=== PATIENT | female | born 1940 | race Caucasian/White ===

== ENCOUNTER 2017-05-12 15:35 | Inpatient (IN) | payer MEDICARE ==
[2017-05-12] MEDS ORDERED: methylPREDNISolone 125 MG* 2 ML VIAL IV ONE (15:57)
[2017-05-12 16:23] LABS: FIO2 2
[2017-05-12 16:26] LABS: PCO2 Arterial 45 mmHg (35-45)
[2017-05-12 17:02] LABS: Hematocrit 37 % (35-47); Hemoglobin 11.9 g/dl (12.0-16.0); Mean Corpuscular HGB Conc 32 g/dl (31-36); Mean Corpuscular Hemoglobin 27 pg (27-31); Mean Corpuscular Volume 86 fL (80-97); Mean Platelet Volume 8 um3 (7.4-10.4); Red Blood Count 4.34 10^6/ul (4.0-5.4); Red Cell Distribution Width 15 % (10.5-15); White Blood Count 11.1 10^3/ul (3.5-10.8)
[2017-05-12 17:21] LABS: Troponin I 0.01 ng/mL (<0.04)
[2017-05-12 17:22] LABS: Albumin 3.7 g/dL (3.2-5.2); BUN/Creatinine Ratio 14.6 (8-20); C Reactive Protein 8.25 mg/L (< 5.00); EGFR African American 72.1 (>60); EGFR Non-African American 56.1 (>60); Globulin 3.1 g/dL (2-4); Potassium 3.8 mmol/L (3.5-5.0); Total Bilirubin 0.6 mg/dL (0.2-1.0); Total Protein 6.8 g/dL (6.4-8.9)
--- NOTE | 2017-05-12 17:22 | RAD ---
HISTORY: Shortness of breath COMPARISONS: September 09, 2015 VIEWS: 2: Frontal and lateral views of the chest. FINDINGS: CARDIOMEDIASTINAL SILHOUETTE: The cardiomediastinal silhouette is normal. POLINA: The polina are normal. PLEURA: The costophrenic angles are sharp. No pleural abnormalities are noted. LUNG PARENCHYMA: There is hyperinflation. There is a linear density within the left midlung measuring 4.4 cm in maximum dimension. ABDOMEN: The upper abdomen is clear. There is no subphrenic gas. BONES AND SOFT TISSUES: No bone or soft tissue abnormalities are noted. OTHER: None. IMPRESSION: HYPERINFLATION WITH A ROUNDED LINEAR DENSITY OF THE LEFT UPPER LUNG. RECOMMEND CONSIDERATION OF CORRELATION WITH CONTRAST ENHANCED CT OF THE CHEST
[2017-05-12] MEDS ORDERED: Albuterol 2.5 MG/3 ML NEB.SOL* (0.083%) INH PRN (17:59)
[2017-05-12] MEDS ORDERED: Iohexol 300* (CONTRAST) 10 ML SDV IV ONE (18:09)
[2017-05-12] MEDS ORDERED: Iodixanol 320 (CONTRAST) 100 ML SDV IV ONE (18:12)
[2017-05-12 18:13] LABS: Urine Bacteria 1+ (Absent); Urine Bilirubin Negative (Negative); Urine Glucose Negative (Negative); Urine Nitrite Negative (Negative)
[2017-05-12] MEDS: Albuterol/Ipratropium NEB.SOL* Albuterol 2.5 MG/Ipratropium 0.5 MG 3 ML INH SCH ×2 (18:13→18:26)
[2017-05-12] MEDS ORDERED: cefTRIAXone(*) 1 GM ADVAN ONE (18:30)
[2017-05-12] MEDS: cefTRIAXone VIAL(*) 1,000 MG in NS 0.9% 50 ML* 50 ML IVPB SCH (18:51)
--- NOTE | 2017-05-12 18:59 | RAD ---
HISTORY: Pneumonia COMPARISONS: Chest x-ray dated May 12, 2017, CT dated May 18, 2013 TECHNIQUE: Multiple contiguous axial CT scans of the chest were obtained with intravenous contrast. Coronal and sagittal multiplanar reformations are also submitted for review. FINDINGS: NECK AND THYROID: There is a calcified right thyroid nodule. This appears stable when compared to the 2013 examination and differences in technique. CHEST WALL: There is no lower cervical, axillary, or supraclavicular lymphadenopathy by size criteria. HEART AND PERICARDIUM: The heart is unremarkable. AORTA AND PULMONARY VASCULATURE: There is calcification of the thoracic aorta. The pulmonary vasculature is unremarkable. MEDIASTINUM: There is no mediastinal lymphadenopathy by size criteria. POLINA: There is no hilar lymphadenopathy by size criteria. AIRWAY AND ESOPHAGUS: The airway is unremarkable, without endobronchial filling defect. The esophagus is grossly normal. LUNG PARENCHYMA: The density noted on plain film corresponds to linear atelectasis of the left upper lobe. There is also linear atelectasis of the right middle lobe. PLEURA: No pleural abnormalities are noted. UPPER ABDOMEN: The upper abdomen is unremarkable. BONES AND SOFT TISSUES: Degenerative changes are noted of the spine OTHER: None. IMPRESSION: LINEAR ATELECTASIS OF THE LEFT UPPER LOBE AND RIGHT MIDDLE LOBE
--- NOTE | 2017-05-12 19:01 | ED ---
Misti Adler Thomas, scribed for Alcon Hood MD on 05/12/17 at 1553 . Shortness of Breath - HPI Summary HPI Summary: The pt is a 77 y/o F with a Hx of COPD presenting to the ED c/o acute-on- chronic SOB that worsened significantly this afternoon. The SOB is aggravated and alleviated by nothing. She is on 2L of oxygen at home. She has been taking Mucinex and Delsym over the last week. Pt additionally c/o hoarseness and clear sputum production. Pt denies CP, fever. PMHx: COPD, asthma, PNA. PSHx: cholecystectomy, laminectomy. SHx: no smoking, no alcohol use, no illicit drug use. FHx: nothing both parents in 90s. She is accompanied by her family. - History of Current Complaint Chief Complaint: EDShortnessOfBreath Time Seen by Provider: 05/12/17 15:48 Hx Obtained From: Patient, Family/[facility] Nurse - family present Onset/Duration: Lasting Days - acute on chronic with onset today, Still Present Timing: Constant Dyspnea At: Rest Aggrevating Factors: Nothing Alleviating Factors: Nothing Associated Signs & Symptoms: Cough (Productive) - clear sputum - Allergy/Home Medications Allergies/Adverse Reactions: Allergies Allergy/AdvReac Type Severity Reaction Status Date / Time Montelukast [From Singulair] AdvReac Severe See Comment Verified 07/21/14 19:21 Home Medications: Home Medications Cholecalciferol [Vitamin D3] 2,000 unit PO DAILY 05/12/17 [History Confirmed ] Hydrochlorothiazide TAB* [Hydrodiuril TAB*] 12.5 mg PO DAILY 05/12/17 [History Confirmed 05/12/17] Lisinopril TAB* [Prinivil TAB*] 10 mg PO DAILY 05/12/17 [History Confirmed 05/12] Omeprazole CAP* [Prilosec CAP* 20 MG] 20 mg PO DAILY 05/12/17 [History Confirmed 05/12/17] Potassium Chlor TAB* [Klor Con ER TAB*] 20 meq PO DAILY 05/12/17 [History Confirmed 05/12/17] Prednisone [Deltasone] 10 mg PO DAILY 05/12/17 [History Confirmed 05/12/17] amLODIPine TAB* [Norvasc 5 mg TAB*] 2.5 mg PO DAILY 05/12/17 [History Confirmed 05/12/17] PMH/Surg Hx/FS Hx/Imm Hx Previously Healthy: No Endocrine/Hematology History: 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 Denies: Hx Anticoagulant Therapy, Hx Diabetes, Hx Thyroid Disease Cardiovascular History: Reports: Hx Congestive Heart Failure Denies: Hx Hypertension, Hx Pacemaker/ICD Respiratory History: Reports: Hx Asthma - USES HOME NEBULIZER AND INHAILER WHEN TRAVELING, Hx Chronic Bronchitis, Hx Chronic Obstructive Pulmonary Disease (COPD ), Hx Pneumonia History: Denies: Hx Renal Disease Musculoskeletal History: Reports: Hx Back Problems Denies: Hx Rheumatoid Arthritis, Hx Osteoporosis Sensory History: Reports: Hx Cataracts, Hx Contacts or Glasses Opthamlomology History: Reports: Hx Cataracts, Hx Contacts or Glasses Neurological History: Reports: Hx Headaches, Other Neuro Impairments/Disorders - 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 Laminectomy 2005. Cataract removal. Cholecysectomy, tonsillectomy. several basal cell skin growths removed Hx Anesthesia Reactions: No - Immunization History Date of Tetanus Vaccine: Unk Date of Influenza Vaccine: Fall 2011 Infectious Disease History: No Infectious Disease History: Denies: Hx Hepatitis, Hx Human Immunodeficiency Virus (HIV), Traveled Outside the [place] in Last 30 Days - Family History Known Family History: Positive: Other - None -- both parents in - Social History Alcohol Use: None Substance Use Type: Reports: None Hx Tobacco Use: No Smoking Status (MU): Never Smoked Tobacco Review of Systems Negative: Fever Positive: Other - POS: hoarseness Negative: Chest Pain Positive: Shortness Of Breath - acute on chronic, Other - POS: sputum production All Other Systems Reviewed And Are Negative: Yes Physical Exam - Summary Physical Exam Summary: VITAL SIGNS: Reviewed. GENERAL: ~Patient is a well-developed and elderly female who is lying comfortable in the stretcher. ~Patient is in some acute respiratory distress. HEAD AND FACE: No signs of trauma. ~No ecchymosis, hematomas or skull depressions. No sinus tenderness. EYES: PERRLA, EOMI x 2, No injected conjunctiva, no nystagmus. EARS: Hearing grossly intact. Ear canals and tympanic membranes are within normal limits. MOUTH: Oropharynx within normal limits. NECK: Supple, trachea is midline, no adenopathy, no JVD, no carotid bruit, no c- spine tenderness, neck with full ROM. CHEST: Symmetric, no tenderness at palpation LUNGS: There are bilateral wheezing and crackles. She is able to speak full sentences. CVS: Regular rate and rhythm, S1 and S2 present, no murmurs or gallops appreciated. ABDOMEN: Soft, non-tender. No signs of distention. No rebound no guarding, and no masses palpated. Bowel sounds are normal. EXTREMITIES: FROM in all major joints, no edema, no cyanosis or clubbing. NEURO: Alert and oriented x 3. No acute neurological deficits. Speech is normal and follows commands. SKIN: Dry and warm Triage Information Reviewed: Yes Vital Signs On Initial Exam: Initial Vitals Temp Pulse Resp BP Pulse Ox 97.9 F 101 23 142/79 95 05/12/17 15:37 05/12/17 15:37 05/12/17 15:37 05/12/17 15:37 05/12/17 15:37 Vital Signs Reviewed: Yes Diagnostics - Vital Signs Vital Signs Temp Pulse Resp BP Pulse Ox 05/12/17 15:37 97.9 F 101 23 142/79 95 - Laboratory Lab Results: Lab Results 05/12/17 05/12/17 05/12/17 Range/Units 16:20 16:40 16:40 WBC 11.1 H (3.5-10.8) 10^3/ul RBC 4.34 (4.0-5.4) 10^6/ul Hgb 11.9 L (12.0-16.0) g/dl Hct 37 (35-47) % MCV 86 (80-97) fL MCH 27 (27-31) pg MCHC 32 (31-36) g/dl RDW 15 (10.5-15) % Plt Count 280 (150-450) 10^3/ul MPV 8 (7.4-10.4) um3 Neut % (Auto) 63.1 (38-83) % Lymph % (Auto) 16.8 L (25-47) % [place] % (Auto) 10.9 H (1-9) % Eos % (Auto) 8.2 H (0-6) % Baso % (Auto) 1.0 (0-2) % Absolute Neuts (auto) 7.0 (1.5-7.7) 10^3/ul Absolute Lymphs (auto) 1.9 (1.0-4.8) 10^3/ul Absolute Monos (auto) 1.2 H (0-0.8) 10^3/ul Absolute Eos (auto) 0.9 H (0-0.6) 10^3/ul Absolute Basos (auto) 0.1 (0-0.2) 10^3/ul Absolute Nucleated RBC 0 10^3/ul Nucleated RBC % 0 Patient Temperature Not Reportable ABG pH 7.43 (7.35-7.45) ABG pH (Temp Correct) Not Reportable ABG pCO2 45 (35-45) mmHg ABG pCO2 (Temp Corrct Not Reportable ABG pO2 68 L (80-100) mmHg ABG pO2 (Temp Correct Not Reportable ABG HCO3 28.6 (19-31) mmol/L ABG O2 Saturation 96.3 (95-98) % ABG Base Excess 4.8 H (-2.0-2.0) Respiration Rate Not Reportable O2 Delivery Device nasal cannula Ventilator Type Not Reportable Vent Mode Not Reportable FiO2 2 Inspiratory Time Not Reportable PEEP Not Reportable Pressure Support Not Reportable Pressure Control Not Reportable EPAP Not Reportable IPAP Not Reportable BiPAP Not Reportable Sodium 134 (133-145) mmol/L Potassium 3.8 (3.5-5.0) mmol/L Chloride 97 L (101-111) mmol/L Carbon Dioxide 31 (22-32) mmol/L Anion Gap 6 (2-11) mmol/L BUN 14 (6-24) mg/dL Creatinine 0.96 H (0.51-0.95) mg/dL Est GFR ( Amer) 72.1 (>60) Est GFR (Non-Af Amer) 56.1 (>60) BUN/Creatinine Ratio 14.6 (8-20) Glucose 123 H (70-100) mg/dL Lactic Acid (0.5-2.0) mmol/L Calcium 9.0 (8.6-10.3) mg/dL Total Bilirubin 0.60 (0.2-1.0) mg/dL AST 13 (13-39) U/L ALT 9 (7-52) U/L Alkaline Phosphatase 46 (34-104) U/L Troponin I 0.01 (<0.04) ng/mL C-Reactive Protein 8.25 H (< 5.00) mg/L B-Natriuretic Peptide ( - 100) pg/mL Total Protein 6.8 (6.4-8.9) g/dL Albumin 3.7 (3.2-5.2) g/dL Globulin 3.1 (2-4) g/dL Albumin/Globulin Ratio 1.2 (1-3) Urine Color Urine Appearance Urine pH (5-9) Ur Specific [place] (1.010-1.030) Urine Protein (Negative) Urine Ketones (Negative) Urine Blood (Negative) Urine Nitrate (Negative) Urine Bilirubin (Negative) Urine Urobilinogen (Negative) Ur Leukocyte Esterase (Negative) Urine WBC (Auto) (Absent) Urine RBC (Auto) (Absent) Ur Squamous Epith Cells (Absent) Ur Transition Epith Cell (Absent) Urine Bacteria (Absent) Urine Glucose (Negative) 05/12/17 05/12/17 05/12/17 Range/Units 16:40 16:40 17:32 WBC (3.5-10.8) 10^3/ul RBC (4.0-5.4) 10^6/ul Hgb (12.0-16.0) g/dl Hct (35-47) % MCV (80-97) fL MCH (27-31) pg MCHC (31-36) g/dl RDW (10.5-15) % Plt Count (150-450) 10^3/ul MPV (7.4-10.4) um3 Neut % (Auto) (38-83) % Lymph % (Auto) (25-47) % [place] % (Auto) (1-9) % Eos % (Auto) (0-6) % Baso % (Auto) (0-2) % Absolute Neuts (auto) (1.5-7.7) 10^3/ul Absolute Lymphs (auto) (1.0-4.8) 10^3/ul Absolute Monos (auto) (0-0.8) 10^3/ul Absolute Eos (auto) (0-0.6) 10^3/ul Absolute Basos (auto) (0-0.2) 10^3/ul Absolute Nucleated RBC 10^3/ul Nucleated RBC % Patient Temperature ABG pH (7.35-7.45) ABG pH (Temp Correct) ABG pCO2 (35-45) mmHg ABG pCO2 (Temp Corrct ABG pO2 (80-100) mmHg ABG pO2 (Temp Correct ABG HCO3 (19-31) mmol/L ABG O2 Saturation (95-98) % ABG Base Excess (-2.0-2.0) Respiration Rate O2 Delivery Device Ventilator Type Vent Mode FiO2 Inspiratory Time PEEP Pressure Support Pressure Control EPAP IPAP BiPAP Sodium (133-145) mmol/L Potassium (3.5-5.0) mmol/L Chloride (101-111) mmol/L Carbon Dioxide (22-32) mmol/L Anion Gap (2-11) mmol/L BUN (6-24) mg/dL Creatinine (0.51-0.95) mg/dL Est GFR ( Amer) (>60) Est GFR (Non-Af Amer) (>60) BUN/Creatinine Ratio (8-20) Glucose (70-100) mg/dL Lactic Acid 1.1 (0.5-2.0) mmol/L Calcium (8.6-10.3) mg/dL Total Bilirubin (0.2-1.0) mg/dL AST (13-39) U/L ALT (7-52) U/L Alkaline Phosphatase (34-104) U/L Troponin I (<0.04) ng/mL C-Reactive Protein (< 5.00) mg/L B-Natriuretic Peptide 34 ( - 100) pg/mL Total Protein (6.4-8.9) g/dL Albumin (3.2-5.2) g/dL Globulin (2-4) g/dL Albumin/Globulin Ratio (1-3) Urine Color Yellow Urine Appearance Cloudy Urine pH 5.0 (5-9) Ur Specific [place] 1.010 (1.010-1.030) Urine Protein Negative (Negative) Urine Ketones Negative (Negative) Urine Blood Negative (Negative) Urine Nitrate Negative (Negative) Urine Bilirubin Negative (Negative) Urine Urobilinogen Negative (Negative) Ur Leukocyte Esterase 3+ H (Negative) Urine WBC (Auto) 3+(>20/hpf) H (Absent) Urine RBC (Auto) 2+(6-10/hpf) H (Absent) Ur Squamous Epith Cells Present H (Absent) Ur Transition Epith Cell Present H (Absent) Urine Bacteria 1+ H (Absent) Urine Glucose Negative (Negative) Result Diagrams: 05/12/17 16:40 05/12/17 16:40 Lab Statement: Any lab studies that have been ordered have been reviewed, and results considered in the medical decision making process. - Radiology CXR Xray Interpretation: Positive (See Comments) - HYPERINFLATION WITH A ROUNDED LINEAR DENSITY OF THE LEFT UPPER LUNG. RECOMMEND CONSIDERATION OF CORRELATION WITH CONTRAST ENHANCED CT OF THE CHEST. ED physician has reviewed this report and agrees. Radiology Interpretation Completed By: Radiologist - EKG 17:34 Cardiac Rate: NL - 95 BPM EKG Interpretation: Sinus rhythm. Atrial premature contractions. No ST elevations. Course/Dx - Course Assessment/Plan: The pt is a 77 y/o F with a Hx of COPD presenting to the ED c/ o [id number] SOB that worsened significantly this afternoon. The SOB is aggravated and alleviated by nothing. She is on 2L of oxygen at home. She has been taking Mucinex and Delsym over the last week. Pt additionally c/o hoarseness and clear sputum production. Pt denies CP, fever. PMHx: COPD, asthma , PNA. PSHx: cholecystectomy, laminectomy. SHx: no smoking, no alcohol use, no illicit drug use. FHx: nothing both parents in 90s. She is accompanied by her family. Blood work is without significant abnormalities except WBC of 11.1 without bands. CMP shows glucose 128 and CRP 8.25. CXR shows HYPERINFLATION WITH A ROUNDED LINEAR DENSITY OF THE LEFT UPPER LUNG. RECOMMEND. CONSIDERATION OF CORRELATION WITH CONTRAST ENHANCED CT OF THE CHEST. In the physical exam, the patient had wheezes and crackles, therefore, she was initially given Duo-Neb and SoluMedrol. At this point, I discussed the case with Dr. Soler, who accepts the patient for admission. She ordered Rocephin and Ciprofloxacin for coverage of the COPD exacerbation. The patient is stable at this point. She will order a CT as recommended by radiology. She will follow up on relevant test results. The patient is hemodynamically stable and alert and oriented x3. - Diagnoses Differential Diagnosis/HQI/PQRI: Positive: Bronchitis, CHF, COPD Exacerbation, Pneumonia Provider Diagnoses: COPD (chronic obstructive pulmonary disease) - Physician Notifications Discussed Care of Patient With: Courtney Soler Time Discussed With Above Provider: 15:57 Instructed by Provider To: Other - I consulted with Dr. Soler, hospitalist, who will admit the patient. Discharge - Discharge Plan Condition: Fair Disposition: ADMITTED TO [facility] documentation as recorded by the Misti robins Thomas accurately reflects the service I personally performed and the decisions made by , Alcon Hood MD.
[2017-05-12] MEDS: Azithromycin IV(*) 500 MG in NS 0.9% 250 ML* 250 ML IVPB SCH (20:20)
--- NOTE | 2017-05-12 21:12 | HP ---
CC: Dr. Rhodes* HISTORY AND PHYSICAL: DATE OF ADMISSION: 05/12/17 PRIMARY CARE PROVIDER: Dr. Rhodes. ATTENDING PHYSICIAN WHILE IN THE HOSPITAL: Dr. Luisa Galicia * (report dictated by Juan Wood NP) CHIEF COMPLAINT: 1. Shortness of breath. 2. Cough. HISTORY OF PRESENT ILLNESS: Ms. Shah is a 77-year-old female patient, she has a history of COPD and asthma, history of Churg-Dave syndrome, and a history of neuropathy. She comes in today stating that last week she was having runny nose, sore throat, cough, not feeling well, feeling little more short of breath. She was started on Levaquin. Normally, after taking a course of Levaquin, she feels better. She finished the course last week, then since the last 2 to 3 days over the weekend, she has had progressive worsening shortness of breath again, even shortness of breath at rest. She has been coughing up clear sputum. She denied having any fevers, denied any chest pain, says that she is having sore throat, rhinorrhea, just feeling really tired, and was concerned she was using her nebulizers and using her oxygen 24x7, which normally does not do and despite this though, she still had continued shortness of breath and so she came in and was evaluated and x-ray did show pneumonia on the left side and we were asked to evaluate for admission. There have been no reports of vomiting or diarrhea. PAST MEDICAL HISTORY: Significant for: 1. COPD. 2. Churg-Dave syndrome. 3. Neuropathy. 4. Hypertension. 5. Osteoporosis. PAST SURGICAL HISTORY: She has had: 1. Cholecystectomy. 2. Tubal ligation. 3. Tonsillectomy. 4. Cardiac catheterization recently done 2 to 3 months ago down at [place]; I will try to get those records. MEDICATIONS: Home meds according to the list that she gave us include: 1. Vitamin D3 2000 units p.o. daily. 2. Prednisone 10 mg daily. 3. Potassium 20 mEq daily. 4. Prilosec 20 mg daily. 5. Lisinopril 10 mg daily. 6. Norvasc 2.5 mg daily. 7. Hydrochlorothiazide 12.5 mg daily. 8. Neurontin 300 mg p.o. t.i.d. 9. Fosamax 100 mg p.o. weekly. ALLERGIES TO MEDICATIONS: Include SINGULAIR. FAMILY HISTORY: Mother had a history of heart disease. Father had a history of CVA and stroke. SOCIAL HISTORY: She does not smoke. She does not drink. Surrogate decision maker is her son, Donny. REVIEW OF SYSTEMS: There is no documented fever. She denied having any significant weight change. There was no double vision. No ear discharge. There was rhinorrhea. There is no sore throat. No thyroid enlargement. Denied having any chest pain. There is dyspnea and dyspnea on exertion. No orthopnea. No nocturnal dyspnea. There was no abdominal pain. No nausea or vomiting. No dysuria or any frequency. Review of 14 systems completed, all others negative. PHYSICAL EXAMINATION GENERAL: At this time, Ms. Pablo Sierra is 77-year-old female patient. She does appear to be in moderate amount of respiratory distress. She is sitting in the ER stretcher. VITAL SIGNS: Reveal blood pressure , pulse 100, respirations 29, O2 sat 95 %, temperature 97.9. HEENT: Head is atraumatic and normocephalic. Eyes: EOMs are intact. Sclerae are anicteric, not pale. NECK: Supple. THROAT: Oral mucosa appears to be dry. No oropharyngeal erythema. LUNGS: Rhonchorous throughout. She had equal diaphragmatic expansion. HEART: Sounds S1, S2. Regular rate and rhythm. No murmurs, rubs, or gallops. ABDOMEN: Soft, flat, and nontender. Bowel sounds present. EXTREMITIES: Pulses 2+ throughout. She had no peripheral edema. She is moving all 4 extremities with 5/5 strength. NEUROLOGICAL: The patient is awake, alert, and oriented x3. Tongue midline. Angle Shearer were equal. She had no gross focal deficits. SKIN: Intact. DIAGNOSTIC STUDIES/LAB DATA: Revealed a WBC of 11.1, RBC 4.34, hemoglobin 11.9 , hematocrit 37, platelet count 280. Blood gas revealed a pH of 7.43, PCO2 of 45, PO2 of 68. She did have a sodium today of 134, potassium 3.8, chloride 97, bicarb 31, BUN 14, creatinine 0.96, glucose 123, lactate 1.1, calcium 9. Total bili 0.6, AST 13, ALT 9, alk phos 46. Troponin 0.01. CRP is 8.25. BNP of 34. Albumin of 3.7. She did have chest x-ray obtained today, which revealed hyperinflation with a rounded linear density in the left upper lung, recommend consideration of correlation with contrast-enhanced CT of the chest. EKG is pending. Old medical records were reviewed. ASSESSMENT AND PLAN: Ms. Pablo Sierra is a 77-year-old female patient, coming in to the ER today with progressive worsening shortness of breath, on x-ray found to have what appeared to be infiltrate. She will be admitted under inpatient status for: 1. Chronic obstructive pulmonary disease exacerbation secondary to possible ___ __ pneumonia. At this point, I will get a CT of the chest to further define this infiltrate. I am going to put her on steroids, Solu-Medrol b.i.d. 60 mg. Get her on Dulera, DuoNeb, flutter valve. We will try to get urine antigen. In addition to this, we will get a sputum culture, put her on antibiotics. Blood cultures have been sent and we will try to get a sputum culture if possible. 2. Hypertension. In the setting of this acute illness, I am actually going to hold her meds. We can always restart them later and we will continue to follow this. 3. History of Churg-Dave syndrome. Consult with primary. 4. Neuropathy. Continue with gabapentin. 5. DVT prophylaxis. She is high risk, I am going to go ahead and put her on heparin subcu. 6. Code status. She wishes to be a DNR. 7. Fluids, electrolytes, and nutrition. She can have a regular diet. TIME SPENT: On the admission was 60 minutes; greater than half the time was spent [id number] with the patient obtaining my history and physical, other half the time was spent going over the plan of care with the patient and implementing the plan of care. I did discuss plan of care with my attending, Dr. Galicia; she is in agreement. JUAN WOOD, GEORGINA [id number]/[facility] #: [id number] MAX
[2017-05-12] MEDS: Gabapentin CAP(*) 300 MG PO SCH (22:20)
[2017-05-12] MEDS: Heparin VIAL(*) 5000 UNITS/ML VIAL (FIVE THOUSAND) SUBCUT SCH (22:20)
[2017-05-13] MEDS: Mometasone/Formoter 200/5 MDI INH SCH ×3 (00:22→20:03)
[2017-05-13] MEDS: Albuterol/Ipratropium NEB.SOL* Albuterol 2.5 MG/Ipratropium 0.5 MG 3 ML INH SCH ×8 (00:22→23:52)
[2017-05-13 04:56] LABS: Hematocrit 37 % (35-47); Hemoglobin 12.1 g/dl (12.0-16.0); Mean Corpuscular HGB Conc 33 g/dl (31-36); Mean Corpuscular Hemoglobin 28 pg (27-31); Mean Corpuscular Volume 85 fL (80-97); Mean Platelet Volume 8 um3 (7.4-10.4); Red Blood Count 4.28 10^6/ul (4.0-5.4); Red Cell Distribution Width 15 % (10.5-15); White Blood Count 6.2 10^3/ul (3.5-10.8)
[2017-05-13] MEDS: methylPREDNISolone 125 MG* 2 ML VIAL IV SCH ×2 (05:53→17:59)
[2017-05-13] MEDS: Heparin VIAL(*) 5000 UNITS/ML VIAL (FIVE THOUSAND) SUBCUT SCH ×3 (05:54→21:57)
[2017-05-13 06:01] LABS: BUN/Creatinine Ratio 16.7 (8-20); Blood Urea Nitrogen 14 mg/dL (6-24); CO2 Carbon Dioxide 28 mmol/L (22-32); Calcium 8.7 mg/dL (8.6-10.3); Chloride 99 mmol/L (101-111); EGFR African American 84.1 (>60); EGFR Non-African American 65.4 (>60); Glucose 154 mg/dL (70-100); Sodium 136 mmol/L (133-145)
[2017-05-13 06:16] LABS: Anion Gap 9 mmol/L (2-11)
[2017-05-13] MEDS: Omeprazole CAP* 20 MG PO SCH (09:19)
[2017-05-13] MEDS: Gabapentin CAP(*) 300 MG PO SCH ×3 (09:19→21:57)
[2017-05-13] MEDS: cefTRIAXone VIAL(*) 1,000 MG in NS 0.9% 50 ML* 50 ML IVPB SCH (19:20)
[2017-05-13] MEDS: Azithromycin IV(*) 500 MG in NS 0.9% 250 ML* 250 ML IVPB SCH (19:55)
--- NOTE | 2017-05-13 21:41 | PN ---
Subjective Date of Service: 05/13/17 Interval History: SOB is improved, feeling better. on vapotherm. Hx of edna gómez, had followed with Dr. Dickey, then Dr. Manning but has not seen in many years. Initial symptoms of sore throat, clear sputum, SOB at rest, fatigue. Got levaquin from Dr. Schaffer ([place]). CT chest with linear atalectasis. Objective Active Medications: Albuterol (Ventolin 2.5 Mg/3 Ml Neb.Queta*) 2.5 mg INH Q2H PRN PRN Reason: SOB/WHEEZING Albuterol/Ipratropium (Duoneb (Albuterol 2.5 Mg/Ipratropium 0.5 Mg)) 1 neb INH [id number] AWAKE [facility] Last Admin: 05/13/17 20:03 Dose: 1 neb Gabapentin (Neurontin Cap(*)) 300 mg PO TID [facility] Last Admin: 05/13/17 14:11 Dose: 300 mg Heparin Sodium (Porcine) (Heparin Vial(*)) 5,000 units SUBCUT Q8HR [facility] Last Admin: 05/13/17 14:11 Dose: 5,000 units Sodium Chloride (Ns 0.9% 1000 Ml*) 1,000 mls @ 100 mls/hr IV PER RATE [facility] Ceftriaxone Sodium 1,000 mg/ (Sodium Chloride) 50 mls @ 200 mls/hr IVPB Q24H [facility] Last Admin: 05/13/17 19:20 Dose: 200 mls/hr Azithromycin 500 mg/ Sodium (Chloride) 250 mls @ 250 mls/hr IVPB Q24H [facility] Last Admin: 05/12/17 20:20 Dose: 250 mls/hr Methylprednisolone Sodium Succinate (Solu-Medrol 125mg *) 60 mg IV Q12H [facility] Last Admin: 05/13/17 17:59 Dose: 60 mg Mometasone Furoate/Formoterol Fumar (Dulera 200/5 Mdi*) 2 puff INH BID [facility] Last Admin: 05/13/17 20:03 Dose: 2 puff Omeprazole (Prilosec Cap*) 20 mg PO DAILY@0730 [facility] Last Admin: 05/13/17 09:19 Dose: 20 mg Vital Signs 05/12/17 05/12/17 05/12/17 21:45 22:00 22:15 Temperature Pulse Rate 87 83 85 Respiratory 14 22 24 Rate Blood Pressure 152/77 156/78 153/78 (mmHg) O2 Sat by Pulse 100 100 99 Oximetry 05/12/17 05/12/17 05/12/17 22:30 22:45 23:00 Temperature Pulse Rate 86 84 89 Respiratory 24 24 24 Rate Blood Pressure 161/81 148/78 158/83 (mmHg) O2 Sat by Pulse 100 100 100 Oximetry 05/12/17 05/12/17 05/12/17 23:15 23:21 23:30 Temperature Pulse Rate 90 76 Respiratory 24 24 21 Rate Blood Pressure 147/75 (mmHg) O2 Sat by Pulse 100 100 Oximetry 05/12/17 05/13/17 05/13/17 23:31 00:00 00:23 Temperature 98.8 F Pulse Rate 80 77 Respiratory 25 17 20 Rate Blood Pressure 152/74 146/65 (mmHg) O2 Sat by Pulse 99 99 Oximetry 05/13/17 05/13/17 05/13/17 00:30 00:31 01:00 Temperature Pulse Rate 74 74 72 Respiratory 20 16 17 Rate Blood Pressure 131/60 (mmHg) O2 Sat by Pulse 97 100 95 Oximetry 05/13/17 05/13/17 05/13/17 01:30 02:00 02:01 Temperature Pulse Rate 82 73 74 Respiratory 17 18 14 Rate Blood Pressure 150/77 154/82 (mmHg) O2 Sat by Pulse 97 98 100 Oximetry 05/13/17 05/13/17 05/13/17 02:12 02:30 02:31 Temperature Pulse Rate 75 74 75 Respiratory 21 19 15 Rate Blood Pressure 151/63 (mmHg) O2 Sat by Pulse 99 98 100 Oximetry 05/13/17 05/13/17 05/13/17 03:00 03:01 03:20 Temperature Pulse Rate 70 73 Respiratory 17 20 16 Rate Blood Pressure 149/64 (mmHg) O2 Sat by Pulse 99 98 Oximetry 05/13/17 05/13/17 05/13/17 03:30 03:31 03:55 Temperature Pulse Rate 70 78 69 Respiratory 18 25 16 Rate Blood Pressure 145/68 145/68 (mmHg) O2 Sat by Pulse 98 100 100 Oximetry 05/13/17 05/13/17 05/13/17 04:00 04:01 04:30 Temperature Pulse Rate 69 72 76 Respiratory 26 15 20 Rate Blood Pressure 143/79 (mmHg) O2 Sat by Pulse 99 100 97 Oximetry 05/13/17 05/13/17 05/13/17 05:00 05:30 06:00 Temperature 97.1 F Pulse Rate 78 77 81 Respiratory 20 22 20 Rate Blood Pressure 142/78 (mmHg) O2 Sat by Pulse 97 100 Oximetry 05/13/17 05/13/17 05/13/17 06:01 06:19 06:30 Temperature Pulse Rate 104 86 80 Respiratory 29 26 21 Rate Blood Pressure 153/53 (mmHg) O2 Sat by Pulse 97 99 100 Oximetry 05/13/17 05/13/17 05/13/17 07:00 07:06 07:30 Temperature Pulse Rate 79 79 79 Respiratory 19 32 42 Rate Blood Pressure 166/72 (mmHg) O2 Sat by Pulse 98 100 97 Oximetry 05/13/17 05/13/17 05/13/17 07:40 08:00 08:01 Temperature 97.9 F Pulse Rate 90 88 Respiratory 25 30 Rate Blood Pressure 180/112 (mmHg) O2 Sat by Pulse 98 98 Oximetry 05/13/17 05/13/17 05/13/17 08:30 08:44 08:54 Temperature Pulse Rate 94 69 69 Respiratory 28 19 19 Rate Blood Pressure (mmHg) O2 Sat by Pulse 90 98 98 Oximetry 05/13/17 05/13/17 05/13/17 08:55 08:59 09:00 Temperature Pulse Rate 68 69 Respiratory 23 23 Rate Blood Pressure (mmHg) O2 Sat by Pulse 99 98 98 Oximetry 05/13/17 05/13/17 05/13/17 09:01 09:12 09:30 Temperature Pulse Rate 73 71 81 Respiratory 23 21 24 Rate Blood Pressure 154/73 (mmHg) O2 Sat by Pulse 99 96 96 Oximetry 05/13/17 05/13/17 05/13/17 10:00 10:07 10:30 Temperature Pulse Rate 79 77 Respiratory 21 26 23 Rate Blood Pressure 132/87 (mmHg) O2 Sat by Pulse 98 97 Oximetry 05/13/17 05/13/17 05/13/17 11:00 11:02 11:30 Temperature Pulse Rate 80 84 Respiratory 15 14 37 Rate Blood Pressure 125/57 (mmHg) O2 Sat by Pulse 97 96 Oximetry 05/13/17 05/13/17 05/13/17 11:51 12:00 12:30 Temperature 98.6 F Pulse Rate 80 77 Respiratory 29 14 Rate Blood Pressure 134/82 (mmHg) O2 Sat by Pulse 100 95 Oximetry 05/13/17 05/13/17 05/13/17 12:54 12:55 13:00 Temperature Pulse Rate 81 81 82 Respiratory 14 19 23 Rate Blood Pressure 128/62 (mmHg) O2 Sat by Pulse 97 97 100 Oximetry 05/13/17 05/13/17 05/13/17 13:26 13:30 14:00 Temperature Pulse Rate 79 85 80 Respiratory 20 24 24 Rate Blood Pressure 124/73 (mmHg) O2 Sat by Pulse 100 95 100 Oximetry 05/13/17 05/13/17 05/13/17 14:30 14:57 14:59 Temperature Pulse Rate 82 85 81 Respiratory 18 16 23 Rate Blood Pressure (mmHg) O2 Sat by Pulse 100 100 98 Oximetry 05/13/17 05/13/17 05/13/17 15:00 15:30 16:00 Temperature Pulse Rate 87 82 83 Respiratory 22 23 23 Rate Blood Pressure (mmHg) O2 Sat by Pulse 100 97 100 Oximetry 05/13/17 05/13/17 05/13/17 16:01 16:30 16:53 Temperature Pulse Rate 81 81 84 Respiratory 26 26 23 Rate Blood Pressure 121/52 (mmHg) O2 Sat by Pulse 96 98 99 Oximetry 05/13/17 05/13/17 05/13/17 17:00 17:27 17:30 Temperature Pulse Rate 86 103 87 Respiratory 17 20 23 Rate Blood Pressure 125/74 (mmHg) O2 Sat by Pulse 100 96 98 Oximetry 05/13/17 05/13/17 05/13/17 18:00 18:01 18:30 Temperature Pulse Rate 86 84 83 Respiratory 24 23 18 Rate Blood Pressure 125/57 (mmHg) O2 Sat by Pulse 96 95 100 Oximetry 05/13/17 05/13/17 05/13/17 19:00 19:01 19:30 Temperature Pulse Rate 99 86 80 Respiratory 20 24 15 Rate Blood Pressure 144/63 (mmHg) O2 Sat by Pulse 98 98 98 Oximetry 05/13/17 05/13/17 05/13/17 19:34 20:03 20:06 Temperature Pulse Rate 79 74 Respiratory 29 17 Rate Blood Pressure (mmHg) O2 Sat by Pulse 98 100 98 Oximetry Oxygen Devices in Use Now: Nasal Cannula Appearance: no acute distress Eyes: No Scleral Icterus, PERRLA Ears/Nose/Mouth/Throat: NL Teeth, Lips, Gums, Clear Oropharnyx Neck: NL Appearance and Movements; NL JVP Respiratory: - - rhonchi, no wheezing or rales. decent air exchange b/l Cardiovascular: NL Sounds; No Murmurs; No JVD, RRR Abdominal: NL Sounds; No Tenderness; No Distention, No Hepatosplenomegaly Extremities: No Edema, No Clubbing, Cyanosis Skin: - - sebhorreic keratosis on back Neurological: Alert and Oriented x 3, NL Sensation, NL Muscle Strength and Tone Result Diagrams: 05/13/17 04:37 05/13/17 09:10 Additional Lab and Data: Laboratory Results - last 24 hr 05/13/17 05/13/17 05/13/17 04:37 04:37 04:37 WBC 6.2 RBC 4.28 Hgb 12.1 Hct 37 MCV 85 MCH 28 MCHC 33 RDW 15 Plt Count 265 MPV 8 Neut % (Auto) 89.1 H Lymph % (Auto) 9.9 L [place] % (Auto) 0.8 L Eos % (Auto) 0 Baso % (Auto) 0.2 Absolute Neuts (auto) 5.6 Absolute Lymphs (auto) 0.6 L Absolute Monos (auto) 0 Absolute Eos (auto) 0 Absolute Basos (auto) 0 Absolute Nucleated RBC 0 Nucleated RBC % 0 INR (Anticoag Therapy) 0.85 L Sodium 136 Potassium TNP Chloride 99 L Carbon Dioxide 28 Anion Gap 9 BUN 14 Creatinine 0.84 Est GFR ( Amer) 84.1 Est GFR (Non-Af Amer) 65.4 BUN/Creatinine Ratio 16.7 Glucose 154 H Calcium 8.7 05/13/17 09:10 WBC RBC Hgb Hct MCV MCH MCHC RDW Plt Count MPV Neut % (Auto) Lymph % (Auto) [place] % (Auto) Eos % (Auto) Baso % (Auto) Absolute Neuts (auto) Absolute Lymphs (auto) Absolute Monos (auto) Absolute Eos (auto) Absolute Basos (auto) Absolute Nucleated RBC Nucleated RBC % INR (Anticoag Therapy) Sodium Potassium 4.2 Chloride Carbon Dioxide Anion Gap BUN Creatinine Est GFR ( Amer) Est GFR (Non-Af Amer) BUN/Creatinine Ratio Glucose Calcium Microbiology and Other Data: Microbiology 05/12/17 20:25 Gram Stain - Final Sputum 05/12/17 20:25 Legionella Urinary Antigen - Final Urine Negative Legionella Streptococcus pneumoniae Ag Screen - Final Negative S. pneumo Antigen 05/12/17 18:57 Nasal Screen MRSA (PCR)(CARIE) - Final Nasal Mrsa Negative 05/12/17 18:57 Influenza Types A,B Antigen (CARIE) - Final Nasal Specimen received for Influenza A/B Molecular testing Assess/Plan/Problems-Billing Assessment: 77 year old female PMH COPD/asthma, eosinophilic granulomatosis with polyangitis , neuropathy presenting with SOB, productive cough not improved with 10 days outpatient levaquin (but not her usual steroid taper) likely 2/2 COPD exaccerbation vs EGPA flare. Improving - Patient Problems (1) COPD exacerbation Current Visit: No Status: Acute Priority: High Code(s): J44.1 - CHRONIC OBSTRUCTIVE PULMONARY DISEASE W (ACUTE) EXACERBATION SNOMED Code(s): 591313044 Comment: acute exacerbation solumedrol taper to prednisone as exam improves. ceftriaxone + azithromycin. Failed outpatient levaquin. sputum cx and urine antigens negative vapotherm, wean as tolerated. chronic oxygen 2L at home. suspect EGPA may be playing role as well. (2) eosinophilic granulomatosis polyangitis Current Visit: Yes Status: Acute Comment: s/p imuran. Not following with Rheum currently. Consider ANCAs (negative in past) and IgE (elevated in past) 8% eosinophilia on diff. on steroid taper (3) UTI (urinary tract infection) Current Visit: Yes Status: Acute Comment: ceftriaxone f/u UCx Status and Disposition: medicine ICU, hopeful downgrade 05/14 Attending: Puma Comer
[2017-05-14] MEDS: Albuterol/Ipratropium NEB.SOL* Albuterol 2.5 MG/Ipratropium 0.5 MG 3 ML INH SCH ×6 (03:57→23:27)
[2017-05-14] MEDS: Heparin VIAL(*) 5000 UNITS/ML VIAL (FIVE THOUSAND) SUBCUT SCH ×3 (05:49→20:57)
[2017-05-14] MEDS: methylPREDNISolone 125 MG* 2 ML VIAL IV SCH (05:49)
[2017-05-14] MEDS: NS 0.9% 1000 ML* 1,000 ML IV SCH ×2 (06:24→20:57)
[2017-05-14] MEDS: Mometasone/Formoter 200/5 MDI INH SCH ×2 (07:28→19:56)
[2017-05-14] MEDS: Gabapentin CAP(*) 300 MG PO SCH ×3 (09:27→20:57)
[2017-05-14] MEDS: Omeprazole CAP* 20 MG PO SCH (09:27)
[2017-05-14] MEDS: predniSONE TAB* 20 MG PO SCH (18:05)
[2017-05-14] MEDS: cefTRIAXone VIAL(*) 1,000 MG in NS 0.9% 50 ML* 50 ML IVPB SCH (20:57)
--- NOTE | 2017-05-14 21:21 | PN ---
Subjective Date of Service: 05/14/17 Interval History: Down to 2L, feeling well and initially wanting to go home though agreed for physical therapy eval first. Objective Active Medications: Albuterol (Ventolin 2.5 Mg/3 Ml Neb.Queta*) 2.5 mg INH Q2H PRN PRN Reason: SOB/WHEEZING Albuterol/Ipratropium (Duoneb (Albuterol 2.5 Mg/Ipratropium 0.5 Mg)) 1 neb INH [id number] AWAKE [facility] Last Admin: 05/14/17 19:56 Dose: 1 neb Gabapentin (Neurontin Cap(*)) 300 mg PO TID [facility] Last Admin: 05/14/17 20:57 Dose: 300 mg Heparin Sodium (Porcine) (Heparin Vial(*)) 5,000 units SUBCUT Q8HR [facility] Last Admin: 05/14/17 20:57 Dose: 5,000 units Sodium Chloride (Ns 0.9% 1000 Ml*) 1,000 mls @ 100 mls/hr IV PER RATE [facility] Last Admin: 05/14/17 20:57 Dose: 100 mls/hr Ceftriaxone Sodium 1,000 mg/ (Sodium Chloride) 50 mls @ 200 mls/hr IVPB Q24H [facility] Last Admin: 05/14/17 20:57 Dose: 200 mls/hr Azithromycin 500 mg/ Sodium (Chloride) 250 mls @ 250 mls/hr IVPB Q24H [facility] Last Admin: 05/13/17 19:55 Dose: 250 mls/hr Mometasone Furoate/Formoterol Fumar (Dulera 200/5 Mdi*) 2 puff INH BID [facility] Last Admin: 05/14/17 19:56 Dose: 2 puff Omeprazole (Prilosec Cap*) 20 mg PO DAILY@0730 [facility] Last Admin: 05/14/17 09:27 Dose: 20 mg Prednisone (Deltasone Tab*) 40 mg PO DAILY [facility] Last Admin: 05/14/17 18:05 Dose: 40 mg Vital Signs 05/13/17 05/13/17 05/13/17 21:30 21:37 22:00 Temperature Pulse Rate 72 72 75 Respiratory 31 36 22 Rate Blood Pressure (mmHg) O2 Sat by Pulse 99 97 100 Oximetry 09/19/17 09/19/17 09/19/17 22:01 22:06 22:07 Temperature Pulse Rate 76 72 71 Respiratory 25 20 18 Rate Blood Pressure 132/65 (mmHg) O2 Sat by Pulse 100 98 97 Oximetry 05/13/17 05/13/17 05/13/17 22:30 23:00 23:30 Temperature Pulse Rate 76 84 83 Respiratory 34 20 21 Rate Blood Pressure 130/59 (mmHg) O2 Sat by Pulse 98 96 97 Oximetry 05/13/17 05/14/17 05/14/17 23:44 00:00 00:01 Temperature 97.8 F Pulse Rate 72 82 Respiratory 16 15 Rate Blood Pressure 117/77 (mmHg) O2 Sat by Pulse 100 99 Oximetry 05/14/17 05/14/17 05/14/17 00:30 01:00 01:01 Temperature Pulse Rate 74 73 77 Respiratory 19 17 18 Rate Blood Pressure 121/54 (mmHg) O2 Sat by Pulse 98 99 95 Oximetry 05/14/17 05/14/17 05/14/17 01:30 02:00 02:30 Temperature Pulse Rate 72 74 74 Respiratory 17 18 17 Rate Blood Pressure 136/73 (mmHg) O2 Sat by Pulse 99 95 97 Oximetry 05/14/17 05/14/17 05/14/17 03:00 03:30 04:00 Temperature 99.1 F Pulse Rate 75 70 67 Respiratory 15 15 22 Rate Blood Pressure 144/66 (mmHg) O2 Sat by Pulse 96 99 100 Oximetry 05/14/17 05/14/17 05/14/17 04:01 04:30 05:00 Temperature Pulse Rate 79 66 69 Respiratory 22 14 14 Rate Blood Pressure 130/65 (mmHg) O2 Sat by Pulse 100 100 100 Oximetry 05/14/17 05/14/17 05/14/17 05:01 05:30 06:00 Temperature Pulse Rate 75 78 75 Respiratory 26 23 17 Rate Blood Pressure 158/67 (mmHg) O2 Sat by Pulse 100 100 96 Oximetry 05/14/17 05/14/17 05/14/17 06:01 06:30 07:00 Temperature Pulse Rate 80 74 76 Respiratory 20 23 16 Rate Blood Pressure 149/67 135/62 (mmHg) O2 Sat by Pulse 100 98 100 Oximetry 05/14/17 05/14/17 05/14/17 07:30 08:00 08:01 Temperature 98.2 F Pulse Rate 73 83 83 Respiratory 12 24 29 Rate Blood Pressure 137/59 (mmHg) O2 Sat by Pulse 99 93 95 Oximetry 05/14/17 05/14/17 05/14/17 08:30 09:00 09:30 Temperature Pulse Rate 80 106 98 Respiratory 23 33 29 Rate Blood Pressure 153/74 (mmHg) O2 Sat by Pulse 100 97 92 Oximetry 05/14/17 05/14/17 05/14/17 10:00 10:01 10:30 Temperature Pulse Rate 88 87 Respiratory 27 24 20 Rate Blood Pressure 124/61 (mmHg) O2 Sat by Pulse 96 97 Oximetry 05/14/17 05/14/17 05/14/17 11:00 11:01 11:24 Temperature Pulse Rate 82 83 85 Respiratory 22 22 22 Rate Blood Pressure 130/62 (mmHg) O2 Sat by Pulse 99 96 97 Oximetry 05/14/17 05/14/17 05/14/17 11:30 12:00 12:01 Temperature 98.9 F Pulse Rate 78 84 86 Respiratory 18 23 22 Rate Blood Pressure 134/94 (mmHg) O2 Sat by Pulse 100 98 93 Oximetry 05/14/17 05/14/17 05/14/17 12:30 13:00 13:01 Temperature Pulse Rate 86 78 80 Respiratory 21 18 17 Rate Blood Pressure 118/74 (mmHg) O2 Sat by Pulse 91 97 94 Oximetry 05/14/17 05/14/17 05/14/17 13:30 14:00 14:30 Temperature Pulse Rate 92 96 88 Respiratory 22 36 29 Rate Blood Pressure (mmHg) O2 Sat by Pulse 96 94 96 Oximetry 05/14/17 05/14/17 05/14/17 14:42 15:00 15:01 Temperature Pulse Rate 88 85 84 Respiratory 28 25 24 Rate Blood Pressure 144/66 111/61 (mmHg) O2 Sat by Pulse 95 98 96 Oximetry 05/14/17 05/14/17 05/14/17 15:04 15:30 16:00 Temperature 98.4 F Pulse Rate 86 96 98 Respiratory 20 24 19 Rate Blood Pressure 125/57 (mmHg) O2 Sat by Pulse 98 97 96 Oximetry 05/14/17 05/14/17 05/14/17 16:30 17:00 17:30 Temperature Pulse Rate 99 84 83 Respiratory 28 15 27 Rate Blood Pressure 132/58 (mmHg) O2 Sat by Pulse 93 97 95 Oximetry 05/14/17 05/14/17 19:57 20:57 Temperature Pulse Rate 83 Respiratory 24 22 Rate Blood Pressure (mmHg) O2 Sat by Pulse 95 Oximetry Oxygen Devices in Use Now: Nasal Cannula Appearance: no acute distress. Breathing comfortably Eyes: No Scleral Icterus, PERRLA Ears/Nose/Mouth/Throat: NL Teeth, Lips, Gums, Mucous Membranes Moist Neck: NL Appearance and Movements; NL JVP Respiratory: Symmetrical Chest Expansion and Respiratory Effort, Clear to Auscultation Cardiovascular: NL Sounds; No Murmurs; No JVD, RRR Abdominal: NL Sounds; No Tenderness; No Distention, No Hepatosplenomegaly Lymphatic: No Cervical Adenopathy Extremities: No Edema, - - trace edema Skin: - - sechorric dermatitis Result Diagrams: 05/13/17 04:37 05/13/17 09:10 Additional Lab and Data: Laboratory Results - last 24 hr 05/13/17 05/13/17 05/13/17 04:37 04:37 04:37 WBC 6.2 RBC 4.28 Hgb 12.1 Hct 37 MCV 85 MCH 28 MCHC 33 RDW 15 Plt Count 265 MPV 8 Neut % (Auto) 89.1 H Lymph % (Auto) 9.9 L [place] % (Auto) 0.8 L Eos % (Auto) 0 Baso % (Auto) 0.2 Absolute Neuts (auto) 5.6 Absolute Lymphs (auto) 0.6 L Absolute Monos (auto) 0 Absolute Eos (auto) 0 Absolute Basos (auto) 0 Absolute Nucleated RBC 0 Nucleated RBC % 0 INR (Anticoag Therapy) 0.85 L Sodium 136 Potassium TNP Chloride 99 L Carbon Dioxide 28 Anion Gap 9 BUN 14 Creatinine 0.84 Est GFR ( Amer) 84.1 Est GFR (Non-Af Amer) 65.4 BUN/Creatinine Ratio 16.7 Glucose 154 H Calcium 8.7 05/13/17 09:10 WBC RBC Hgb Hct MCV MCH MCHC RDW Plt Count MPV Neut % (Auto) Lymph % (Auto) [place] % (Auto) Eos % (Auto) Baso % (Auto) Absolute Neuts (auto) Absolute Lymphs (auto) Absolute Monos (auto) Absolute Eos (auto) Absolute Basos (auto) Absolute Nucleated RBC Nucleated RBC % INR (Anticoag Therapy) Sodium Potassium 4.2 Chloride Carbon Dioxide Anion Gap BUN Creatinine Est GFR ( Amer) Est GFR (Non-Af Amer) BUN/Creatinine Ratio Glucose Calcium Microbiology and Other Data: Microbiology 05/12/17 20:25 Gram Stain - Final Sputum 05/12/17 20:25 Legionella Urinary Antigen - Final Urine Negative Legionella Streptococcus pneumoniae Ag Screen - Final Negative S. pneumo Antigen 05/12/17 18:57 Nasal Screen MRSA (PCR)(CARIE) - Final Nasal Mrsa Negative 05/12/17 18:57 Influenza Types A,B Antigen (CARIE) - Final Nasal Specimen received for Influenza A/B Molecular testing Assess/Plan/Problems-Billing Assessment: 77 year old female PMH COPD/asthma, eosinophilic granulomatosis with polyangitis , neuropathy presenting with SOB, productive cough not improved with 10 days outpatient levaquin (but not her usual steroid taper) likely 2/2 COPD exaccerbation vs EGPA flare. Improving back to baseline - Patient Problems (1) COPD exacerbation Current Visit: No Status: Acute Priority: High Code(s): J44.1 - CHRONIC OBSTRUCTIVE PULMONARY DISEASE W (ACUTE) EXACERBATION SNOMED Code(s): 711728933 Comment: acute exacerbation solumedrol taper to prednisone today ceftriaxone + azithromycin. Failed outpatient levaquin. sputum cx and urine antigens negative chronic oxygen 2L at home. suspect EGPA may be playing role as well. (2) eosinophilic granulomatosis polyangitis Current Visit: Yes Status: Acute Comment: s/p imuran. Not following with Rheum currently. Consider ANCAs (negative in past) and IgE (elevated in past) 8% eosinophilia on diff. on steroid taper (3) UTI (urinary tract infection) Current Visit: Yes Status: Acute Comment: ceftriaxone for COPD exaccerbation f/u UCx negative Status and Disposition: medicine, d/c 05/15 to home vs PT rec facility Attending: Puma Comer
[2017-05-14] MEDS: Azithromycin IV(*) 500 MG in NS 0.9% 250 ML* 250 ML IVPB SCH (23:13)
[2017-05-15] MEDS: Albuterol/Ipratropium NEB.SOL* Albuterol 2.5 MG/Ipratropium 0.5 MG 3 ML INH SCH ×6 (03:28→22:23)
[2017-05-15] MEDS: Omeprazole CAP* 20 MG PO SCH (06:13)
[2017-05-15] MEDS: Heparin VIAL(*) 5000 UNITS/ML VIAL (FIVE THOUSAND) SUBCUT SCH ×3 (06:13→22:01)
[2017-05-15] MEDS: Gabapentin CAP(*) 300 MG PO SCH ×3 (08:24→22:00)
[2017-05-15] MEDS: predniSONE TAB* 20 MG PO SCH (08:24)
[2017-05-15] MEDS: Mometasone/Formoter 200/5 MDI INH SCH ×2 (08:41→19:53)
[2017-05-15] MEDS: Hydrochlorothiazide TAB* 25 MG PO SCH (12:16)
[2017-05-15] MEDS ORDERED: Furosemide TAB* 40 MG PO ONE (14:09)
--- NOTE | 2017-05-15 16:41 | PN ---
Subjective Date of Service: 05/15/17 Interval History: Feels okay, still some productive coughing. Noticed increased leg/feet swelling. Walked with PT, no acute needs. IVF stopped. Objective Active Medications: Albuterol (Ventolin 2.5 Mg/3 Ml Neb.Queta*) 2.5 mg INH Q2H PRN PRN Reason: SOB/WHEEZING Albuterol/Ipratropium (Duoneb (Albuterol 2.5 Mg/Ipratropium 0.5 Mg)) 1 neb INH [id number] AWAKE [facility] Last Admin: 05/15/17 15:53 Dose: 1 neb Gabapentin (Neurontin Cap(*)) 300 mg PO TID [facility] Last Admin: 05/15/17 14:02 Dose: 300 mg Heparin Sodium (Porcine) (Heparin Vial(*)) 5,000 units SUBCUT Q8HR [facility] Last Admin: 05/15/17 14:00 Dose: 5,000 units Hydrochlorothiazide (Hydrodiuril Tab*) 25 mg PO DAILY [facility] Last Admin: 05/15/17 12:16 Dose: 25 mg Ceftriaxone Sodium 1,000 mg/ (Sodium Chloride) 50 mls @ 200 mls/hr IVPB Q24H [facility] Last Admin: 05/14/17 20:57 Dose: 200 mls/hr Azithromycin 500 mg/ Sodium (Chloride) 250 mls @ 250 mls/hr IVPB Q24H [facility] Last Admin: 05/14/17 23:13 Dose: 250 mls/hr Mometasone Furoate/Formoterol Fumar (Dulera 200/5 Mdi*) 2 puff INH BID [facility] Last Admin: 05/15/17 08:41 Dose: 2 puff Omeprazole (Prilosec Cap*) 20 mg PO DAILY@0730 [facility] Last Admin: 05/15/17 06:13 Dose: 20 mg Prednisone (Deltasone Tab*) 40 mg PO DAILY [facility] Last Admin: 05/15/17 08:24 Dose: 40 mg Vital Signs 05/14/17 05/14/17 05/14/17 17:00 17:30 19:18 Temperature 97.7 F Pulse Rate 84 83 87 Respiratory 15 27 20 Rate Blood Pressure 132/58 177/58 (mmHg) O2 Sat by Pulse 97 95 93 Oximetry 05/14/17 05/14/17 05/14/17 19:57 20:00 20:57 Temperature Pulse Rate 83 Respiratory 24 20 22 Rate Blood Pressure (mmHg) O2 Sat by Pulse 95 Oximetry 05/14/17 05/14/17 05/14/17 22:57 23:28 23:29 Temperature Pulse Rate 81 Respiratory 20 20 Rate Blood Pressure (mmHg) O2 Sat by Pulse 98 98 Oximetry 05/14/17 05/15/17 05/15/17 23:44 03:28 04:03 Temperature 97.6 F Pulse Rate 95 92 91 Respiratory 20 22 22 Rate Blood Pressure 148/64 135/61 (mmHg) O2 Sat by Pulse 100 98 98 Oximetry 05/15/17 05/15/17 05/15/17 08:00 08:20 08:24 Temperature Pulse Rate 87 Respiratory 20 18 20 Rate Blood Pressure 138/66 (mmHg) O2 Sat by Pulse 99 Oximetry 05/15/17 05/15/17 05/15/17 08:45 10:24 11:12 Temperature Pulse Rate 87 77 Respiratory 16 20 18 Rate Blood Pressure (mmHg) O2 Sat by Pulse 96 96 Oximetry 05/15/17 05/15/17 05/15/17 11:47 14:02 15:30 Temperature 98.0 F Pulse Rate 93 87 Respiratory 18 22 18 Rate Blood Pressure 131/57 136/47 (mmHg) O2 Sat by Pulse 97 97 Oximetry 05/15/17 16:02 Temperature Pulse Rate Respiratory 18 Rate Blood Pressure (mmHg) O2 Sat by Pulse Oximetry Oxygen Devices in Use Now: Nasal Cannula Appearance: No acute distress. Eyes: No Scleral Icterus, PERRLA Ears/Nose/Mouth/Throat: NL Teeth, Lips, Gums Respiratory: Symmetrical Chest Expansion and Respiratory Effort, Clear to Auscultation, - - slightly decreased air movement Cardiovascular: RRR, - - 2/6 systolic murmur across precordium, Abdominal: NL Sounds; No Tenderness; No Distention, No Hepatosplenomegaly Extremities: - - 1-2+ nonpitting feet edema Skin: - - sebhorreic keratosis on back Neurological: Alert and Oriented x 3, NL Muscle Strength and Tone Result Diagrams: 05/13/17 04:37 05/13/17 09:10 Additional Lab and Data: Microbiology and Other Data: Microbiology 05/12/17 20:25 Gram Stain - Final Sputum 05/12/17 20:25 Legionella Urinary Antigen - Final Urine Negative Legionella Streptococcus pneumoniae Ag Screen - Final Negative S. pneumo Antigen 05/12/17 18:57 Nasal Screen MRSA (PCR)(CARIE) - Final Nasal Mrsa Negative 05/12/17 18:57 Influenza Types A,B Antigen (CARIE) - Final Nasal Specimen received for Influenza A/B Molecular testing Assess/Plan/Problems-Billing Assessment: 77 year old female PMH COPD/asthma, eosinophilic granulomatosis with polyangitis , neuropathy presenting with SOB, productive cough not improved with 10 days outpatient levaquin (but not her usual steroid taper) likely 2/2 COPD exaccerbation vs EGPA flare. Improving back to baseline but more edematous and slightly decreased air movement - Patient Problems (1) COPD exacerbation Current Visit: No Status: Acute Priority: High Code(s): J44.1 - CHRONIC OBSTRUCTIVE PULMONARY DISEASE W (ACUTE) EXACERBATION SNOMED Code(s): 589912070 Comment: acute exacerbation prednisone 40mg day 2/3 with additional taper. continue ceftriaxone (day 3), stop azithromycin (day 3/3 of 500mg). Failed outpatient levaquin. sputum cx and urine antigens negative duonebs q4 prn dulera chronic oxygen 2L at home. EGPA may be playing role as well. (2) eosinophilic granulomatosis polyangitis Current Visit: Yes Status: Acute Comment: s/p imuran. Not following with Rheum currently. Consider ANCAs (negative in past) and IgE (elevated in past) 8% eosinophilia on diff. on steroid taper f/u IgE level (3) Volume overload Current Visit: Yes Status: Acute Code(s): E87.70 - FLUID OVERLOAD, UNSPECIFIED SNOMED Code(s): 04913293 Comment: restart home HCTZ 25mg daily one time dose of lasix 40mg po today stop mIVF BMP in AM ECHO 2010: diastolic dysfunction, EF 65%, moderate TVR, RVSP 40s Status and Disposition: medicine, plan d/c 05/16 to home after additional diuresis
[2017-05-15] MEDS: cefTRIAXone VIAL(*) 1,000 MG in NS 0.9% 50 ML* 50 ML IVPB SCH (22:00)
[2017-05-16] MEDS: Albuterol/Ipratropium NEB.SOL* Albuterol 2.5 MG/Ipratropium 0.5 MG 3 ML INH SCH ×3 (03:02→11:21)
[2017-05-16] MEDS: Heparin VIAL(*) 5000 UNITS/ML VIAL (FIVE THOUSAND) SUBCUT SCH (06:02)
[2017-05-16] MEDS: Omeprazole CAP* 20 MG PO SCH (06:02)
[2017-05-16 06:05] LABS: Hematocrit 33 % (35-47); Hemoglobin 10.9 g/dl (12.0-16.0); Mean Corpuscular HGB Conc 33 g/dl (31-36); Mean Corpuscular Hemoglobin 28 pg (27-31); Mean Corpuscular Volume 86 fL (80-97); Mean Platelet Volume 8 um3 (7.4-10.4); Red Blood Count 3.88 10^6/ul (4.0-5.4); Red Cell Distribution Width 15 % (10.5-15); White Blood Count 12.7 10^3/ul (3.5-10.8)
[2017-05-16 06:23] LABS: BUN/Creatinine Ratio 23.1 (8-20); Calcium 8.4 mg/dL (8.6-10.3); EGFR African American 65.7 (>60); EGFR Non-African American 51.1 (>60); Potassium 3.4 mmol/L (3.5-5.0)
[2017-05-16] MEDS: Mometasone/Formoter 200/5 MDI INH SCH (08:05)
[2017-05-16 09:00] VITALS: BP 144/53
[2017-05-16] MEDS: predniSONE TAB* 20 MG PO SCH (09:00)
[2017-05-16] MEDS: Gabapentin CAP(*) 300 MG PO SCH (09:00)
[2017-05-16] MEDS: Hydrochlorothiazide TAB* 25 MG PO SCH (09:01)
--- NOTE | 2017-05-17 05:34 | DS ---
DISCHARGE SUMMARY: DATE OF ADMISSION: 05/12/17 DATE OF DISCHARGE: 05/16/17 ADMITTING PROVIDER: Juan Wood NP ATTENDING PHYSICIAN: Puma Comer MD. PRIMARY CARE PHYSICIAN: Dr. Rhodes. CHIEF COMPLAINT: Shortness of breath and cough. PRINCIPLE DIAGNOSIS: Chronic obstructive pulmonary disease exacerbation. HISTORY OF PRESENT ILLNESS AND HOSPITAL COURSE: Mrs. 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 She started Levaquin prescribed by her [place] assistant golf coach, but never felt better. Of note, she usually gets prednisone taper that she did not get. She finished the course of antibiotics and began to have increasing shortness of breath for 2 to 3 days prior to admission, even at rest. She was coughing up clear sputum. Denied any fevers, chest pain. Did state she has a sore throat, rhinorrhea, fatigue. She was using her nebulizers and oxygen 24/7 and still felt short of breath. On presentation to the emergency room, she had a chest x-ray, which showed a rounded linear density in the left upper lung. Initial ABG; pH 7.43, PCO2 45, PO2 68, bicarb 28.6. She had a CT of chest with intravenous contrast, which showed linear atelectasis of the left upper lobe and right middle lobe. Her initial white count was 11.1 and included 8.2% eosinophils. Given her history of EGPA, an immunoglobulin IgE was drawn but still pending. She was initially admitted to the ICU and started on Vapotherm high flow nasal cannula and received Solu- Medrol 125 mg. She roughly improved over the next 3 days with physical therapy and was transferred up to the floor. Steroids were tapered to oral form. She was given a course of azithromycin 500 mg x3 days and ceftriaxone daily for 4 days. Physical Therapy recommended no acute needs upon discharge, and the patient was sent home with her usual regimen of Symbicort and Advair p.r.n., and of note she is on the prednisone 10 mg at baseline. She was sent home with a tapering course of prednisone on the day after discharge to start 30 mg x4 days, 20 mg x4 days, then continue baseline 10 mg daily. She was recommended to see her primary care physician, Dr. Rhodes and re-establish care with a library services assistant, which she has not seen in several years to evaluate possible contribution of EGPA on her respiratory symptoms. It was recommended that she stop her Prilosec as she did not remember any history of acid reflux disease, otherwise no medication changes were made. DISCHARGE MEDICATIONS: Include: 1. Vitamin D3 2000 units p.o. daily. 2. Prednisone 10 mg daily, but with taper as outlined above. 3. Potassium 20 mEq daily. 4. Lisinopril 10 mg daily. 5. Norvasc 2.5 mg daily. 6. Hydrochlorothiazide 12.5 mg tab 25 mg daily. 7. Neurontin 300 mg p.o. t.i.d. 8. Fosamax 100 mg p.o. weekly. 9. Symbicort nebulizer b.i.d. 10. Albuterol nebulizer q.6 hours p.r.n. 11. Proventil inhaler p.r.n. while outside the house. DISCHARGE DIET: Includes heart healthy, less salt, unchanged. DISCHARGE DISPOSITION: Home. TIME SPENT: On discharge is 35 minutes. [id number]/CPS #: [id number] MTDD
== END 2017-05-16 13:55 | disposition home or self-care (01) | DRG 191 ==
LOC: ED 15:35 → ICU 17:56 → MED 05-14 19:34
PROVIDERS: ADMIT Internal Medicine; ATTEND Internal Medicine
DX: J44.1 Chronic obstructive pulmonary disease with (acute) exacerbation (principal); M30.1 Polyarteritis with lung involvement [Churg-Strauss]; G62.9 Polyneuropathy, unspecified; E87.70 Fluid overload, unspecified; N39.0 Urinary tract infection, site not specified; J98.11 Atelectasis; I10 Essential (primary) hypertension; M81.0 Age-related osteoporosis without current pathological fracture; Z79.52 Long term (current) use of systemic steroids; Z79.899 Other long term (current) drug therapy; Z88.8 Allergy status to other drugs, medicaments and biological substances; Z82.49 Family history of ischemic heart disease and other diseases of the circulatory system; Z82.3 Family history of stroke
CPT/HCPCS: 36415; 36600; 71020; 71260; 80048; 80053; 81003; 81015; 82785; 82803; 83605; 83880; 84484; 85025; 85610; 86140; 87040; 87070; 87086; 87205; 87502; 87641; 87899; 93005; 94640; 94760; A9270-GY; J0456; J0696; J1644; J2930; J7512; Q9967

== ENCOUNTER 2017-07-14 08:28 | Inpatient (IN) | payer MEDICARE ==
[2017-07-14] MEDS ORDERED: Albuterol/Ipratropium NEB.SOL* Albuterol 2.5 MG/Ipratropium 0.5 MG 3 ML INH ONE (08:46)
[2017-07-14] MEDS ORDERED: methylPREDNISolone 125 MG* 2 ML VIAL IV ONE (08:46)
--- NOTE | 2017-07-14 09:12 | RAD ---
HISTORY: Shortness of breath COMPARISONS: May 12, 2017 VIEWS: 4: Frontal dual-energy and lateral views of the chest. FINDINGS: CARDIOMEDIASTINAL SILHOUETTE: The cardiomediastinal silhouette is normal. POLINA: The polina are normal. PLEURA: The costophrenic angles are sharp. No pleural abnormalities are noted. LUNG PARENCHYMA: The lungs are clear. ABDOMEN: The upper abdomen is clear. There is no subphrenic gas. BONES AND SOFT TISSUES: Degenerative changes are noted along the spine. OTHER: None. IMPRESSION: NO ACTIVE CARDIOPULMONARY DISEASE.
[2017-07-14 09:35] LABS: FIO2 100
[2017-07-14 09:41] LABS: PCO2 Arterial 70 mmHg (35-45)
[2017-07-14 10:18] LABS: Hematocrit 39 % (35-47); Hemoglobin 12.7 g/dl (12.0-16.0); Mean Corpuscular HGB Conc 33 g/dl (31-36); Mean Corpuscular Hemoglobin 29 pg (27-31); Mean Corpuscular Volume 89 fL (80-97); Mean Platelet Volume 8 um3 (7.4-10.4); Red Cell Distribution Width 15 % (10.5-15); White Blood Count 9.3 10^3/ul (3.5-10.8)
[2017-07-14 10:34] LABS: Albumin 3.8 g/dL (3.2-5.2); BUN/Creatinine Ratio 19.6 (8-20); C Reactive Protein 3.98 mg/L (< 5.00); Calcium 9.8 mg/dL (8.6-10.3); EGFR African American 67.2 (>60); EGFR Non-African American 52.3 (>60); Globulin 2.9 g/dL (2-4); Potassium 3.6 mmol/L (3.5-5.0); Total Bilirubin 0.7 mg/dL (0.2-1.0); Total Protein 6.7 g/dL (6.4-8.9)
[2017-07-14 10:35] LABS: Troponin I 0.03 ng/mL (<0.04)
[2017-07-14] MEDS ORDERED: Levofloxacin TAB* 250 MG PO ONE (11:38)
[2017-07-14 11:57] LABS: EPAP 5; FIO2 35; IPAP 10
[2017-07-14 12:01] LABS: PCO2 Arterial 57 mmHg (35-45)
[2017-07-14] MEDS ORDERED: Ondansetron INJ* 2 MG/ML VIAL IV PRN (12:28)
[2017-07-14] MEDS ORDERED: Acetaminophen TAB* 325 MG PO PRN (12:28)
[2017-07-14] MEDS ORDERED: Albuterol 2.5 MG/3 ML NEB.SOL* (0.083%) INH PRN (12:28)
[2017-07-14 13:44] LABS: EGFR African American 61.6 (>60); EGFR Non-African American 47.9 (>60)
[2017-07-14] MEDS: Azithromycin IV(*) 500 MG in NS 0.9% 250 ML* 250 ML IVPB SCH (14:30)
[2017-07-14] MEDS: Heparin VIAL(*) 5000 UNITS/ML VIAL (FIVE THOUSAND) SUBCUT SCH ×2 (14:35→21:03)
[2017-07-14] MEDS: Gabapentin CAP(*) 300 MG PO SCH ×2 (14:35→21:03)
--- NOTE | 2017-07-14 14:56 | HP ---
CC: Dr. Rhodes * HISTORY AND PHYSICAL: DATE OF ADMISSION: 07/14/17 PRIMARY CARE PROVIDER: Dr. Rhodes. MY ATTENDING PHYSICIAN WHILE IN THE HOSPITAL: Courtney Roblero MD * (report dictated by Juan Wood NP) CHIEF COMPLAINT: 1. Shortness of breath. 2. Cough. HISTORY OF PRESENT ILLNESS: Mrs. Pablo Sierra is a 77-year-old female patient who carries a history of COPD, Churg-Dave syndrome, history of neuropathy, hypertension, and osteoporosis. She comes in today, says over the last couple of days she has noticed that she is becoming more progressively worsening shortness of breath particularly with minimal exertion. She has noticed that she has a pulse oximeter at home that her oxygen levels with exertion has been dropping down into the 80s and she was concerned. She says she has been coughing more, bringing up clear sputum. The family has noted that her chest has been rattling. There has not been any documented fevers or chills. There has not been any chest pain with the exception when she is coughing. It is hurting her right ribs. She denied having any abdominal discomfort and she denied having any vomiting or diarrhea. The patient was concerned because of the hypoxia was not getting any better. She came into the ER today. She was placed initially on BiPAP. There was concern for COPD exacerbation and we were asked to evaluate for admission. Because of the worsening shortness of breath, we were asked to evaluate for admission. PAST MEDICAL HISTORY: Significant for: 1. COPD. 2. Churg-Dave syndrome. 3. Neuropathy. 4. Hypertension. 5. Osteoporosis. PAST SURGICAL HISTORY: 1. She has had a cholecystectomy. 2. Tubal ligation. 3. Tonsillectomy. 4. Cardiac catheterization. MEDICATIONS: The home meds according to the list that she provided includes: 1. Vitamin D 2000 units p.o. daily. 2. Ventolin 2 puffs inhaled every 6 hours as needed. 3. Prilosec 20 mg daily. 4. Lisinopril 10 mg daily. 5. Symbicort 1 puff inhaled b.i.d. 6. Ventolin 2.5 mg inhaled every 6 hours as needed. 7. Prednisone 10 mg daily. 8. Hydrochlorothiazide 12.5 mg daily. 9. Gabapentin 300 mg p.o. t.i.d. 10. Amlodipine 2.5 mg daily. ALLERGIES TO MEDICATIONS: Includes SINGULAIR. FAMILY HISTORY: Mother had a history of CVA. Father had a history of heart disease. SOCIAL HISTORY: The patient does not smoke, does not drink. Surrogate decision maker is her son. REVIEW OF SYSTEMS: There is no documented fever. Denied having any significant weight change. There was no double vision. No ear discharge. There was no rhinorrhea, no sore throat, no thyroid enlargement. She does admit to having chest discomfort when she is coughing. She denies having any abdominal discomfort. There has been no nausea, no vomiting. She denies having any dysuria. No frequency. There was no loss of consciousness. She does admit to having shortness of breath. No orthopnea. She admits to dyspnea on exertion. Review of 14 systems was completed, all others negative. PHYSICAL EXAMINATION GENERAL: At this time, Mrs. Pablo Sierra is a 77-year-old female patient. She is sitting in the ER stretcher. She does not appear to be in any acute distress. She may be in a mild to moderate respiratory distress, but she is talking full sentences. VITAL SIGNS: Blood pressure 120/65, pulse 92, respirations 23, O2 sat 96%, temperature 99.4. HEENT: Head: Atraumatic, normocephalic. Eyes: EOMs intact. Sclerae anicteric, not pale. Throat: Oral mucosa appears to be moist. No oropharyngeal erythema. NECK: Supple. LUNGS: She had rhonchi throughout. She had wheezing bilaterally as well. Equal diaphragmatic expansion. HEART: Sounds S1 and S2. Regular rate and rhythm. No murmurs, rubs, or gallops. ABDOMEN: Soft, flat, and nontender. Bowel sounds are present. EXTREMITIES: Pulses were 2+ throughout. She had no peripheral edema. She is moving all 4 extremities with 5/5 strength. NEUROLOGIC: She is awake, alert, oriented x3. Tongue is midline. Senior Partner were equal. No gross focal deficits. SKIN: Intact. DIAGNOSTIC STUDIES/LAB DATA: Labs reveal WBC 9.3, RBC of 4.40, hemoglobin 12.7 , hematocrit of 39, platelet count of 296. The blood gas initially showed a pH of 7.34, pCO2 of 70, the bicarb of 32; pH now is 7.01, pCO2 of 57. The chemistry revealed a sodium of 138, potassium of 3.6, chloride of 97, bicarb of 34, BUN 20, creatinine 1.02, glucose of 125, lactate 1.2, calcium 9.8. Total bili 0.7, AST 18, ALT 14, alk phos 45. Troponin 0.03. CRP 3.98. Albumin 3.8. The patient did have a chest x-ray obtained today, which revealed no active cardiopulmonary disease. EKG today showed sinus tachycardia at a rate of 102. No ST elevations or T-wave inversions were noted. I attributed that previous EKG does appear to be similar. Old medical records were reviewed. ASSESSMENT AND PLAN: Mrs. Pablo Sierra is a 77-year-old female patient coming into the ER today with complaints of cough, shortness of breath, progressively getting worse over the last several days. We were asked to evaluate for admission. She will be admitted under observation status for: 1. Chronic obstructive pulmonary disease exacerbation. At this point, I will go ahead and put her on nebulizers every 4 hours, pulmonary toileting. We will get a Legionella antigen, Strep pneumo antigen. In addition to this, we will also try to get a rapid flu. We will try to get aggressive pulmonary toileting going with flutter valve and I am going to put her on Vapo. She is having a mild amount of respiratory distress down here and we will continue to follow her closely. I will put her on azithromycin and Rocephin. 2. History of Churg-Dave syndrome. At this point, follow with the primary. 3. Neuropathy. Continue with gabapentin. 4. Hypertension. In the setting of acute illness, I am going to hold her blood pressure meds. Blood pressure is down here, it had been in the 120s. If they do elevate, we will restart them slowly. 5. Osteoporosis. Follow with primary. 6. DVT prophylaxis. She will be placed on heparin subcu. 7. Code status. She filled out a MOLST form last time with me. Her wishes still to be a do not resuscitate. 8. Fluids, electrolytes, and nutrition. Clear liquid diet for the time being. We will try to transition her to a regular diet. TIME SPENT: On the admission was 60 minutes; greater than half the time was spent [id number] with the patient obtaining my history and physical, other half time was spent going over the plan of care and implementing plan of care. I did discuss the plan of care with my attending, Dr. Roblero; she is in agreement. JUAN WOOD, GEORGINA [id number]/CPS #: [id number] MAX
[2017-07-14] MEDS: Albuterol/Ipratropium NEB.SOL* Albuterol 2.5 MG/Ipratropium 0.5 MG 3 ML INH SCH ×3 (15:28→23:02)
[2017-07-14] MEDS: cefTRIAXone VIAL(*) 1,000 MG in NS 0.9% 50 ML* 50 ML IVPB SCH (16:26)
[2017-07-14] MEDS: methylPREDNISolone 125 MG* 2 ML VIAL IV SCH (18:08)
--- NOTE | 2017-07-14 18:32 | ED ---
Brandyn Adler Alfonso scribed for Alcon Hood MD on 07/14/17 at 0857 . Shortness of Breath - HPI Summary HPI Summary: This patient is a 77 year old F BIBA to [facility] accompanied by daughter with a chief complaint of SOB since one week ago, worse since yesterday. The patient rates the pain 0/10 in severity. Symptoms alleviated by nothing. Patient reports productive coughing. Patient denies fever, CP, and N/V. She is currently on 12.5 L NC O2. - History of Current Complaint Chief Complaint: EDShortnessOfBreath Time Seen by Provider: 07/14/17 08:33 Hx Obtained From: Patient Onset/Duration: Gradual Onset, Lasting Weeks - 1, Still Present, Worse Since - yesterday Timing: Constant Alleviating Factors: Nothing Associated Signs & Symptoms: Cough (Productive) - Allergy/Home Medications Allergies/Adverse Reactions: Allergies Allergy/AdvReac Type Severity Reaction Status Date / Time Montelukast [From [facility]] AdvReac Severe See Comment Verified 07/21/14 19:21 Home Medications: Home Medications Albuterol HFA INHALER* [Ventolin HFA Inhaler*] 2 puff INH Q6H PRN 07/14/17 [ History Confirmed 07/14/17] Cholecalciferol TAB* [Vitamin D TAB*] 2,000 units PO DAILY 07/14/17 [History Confirmed 07/14/17] Hydrochlorothiazide TAB* [Hydrodiuril TAB*] 12.5 mg PO DAILY 07/14/17 [History Confirmed 07/14/17] Omeprazole CAP* [Prilosec CAP* 20 MG] 20 mg PO DAILY 07/14/17 [History Confirmed 07/14/17] predniSONE TAB* [Deltasone TAB*] 10 mg PO DAILY 07/14/17 [History Confirmed ] PMH/Surg Hx/FS Hx/Imm Hx Endocrine/Hematology History: 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 Denies: Hx Anticoagulant Therapy, Hx Blood Disorders, Hx Blood Transfusions, Hx Bone Marrow Disease, Hx Diabetes, Hx Systemic Lupus Erythematosus, Hx Sickle Cell Disease, Hx Thyroid Disease, Hx Anemia, Hx Unexplained Bleeding Cardiovascular History: Reports: Hx Hypertension Denies: Hx Aneurysm, Hx Angina, Hx Angioplasty, Hx Auto Implanted Cardiovert Defib, Hx Cardiac Arrest, Hx Cardiomegaly, Hx Congenital Heart Disease, Hx Congestive Heart Failure, Hx Coronary Artery Disease, Hx Embolism, Hx Hypercholesterolemia, Hx Hypotension, Hx Pacemaker/ICD, Hx Peripheral Vascular Disease, Hx Rheumatic Fever, Hx Syncope, Hx Valvular Heart Disease Respiratory History: Reports: Hx Asthma - USES HOME NEBULIZER AND INHAILER WHEN TRAVELING, Hx Chronic Bronchitis, Hx Chronic Obstructive Pulmonary Disease (COPD ), Hx Pneumonia Denies: Hx Cystic Fibrosis, Hx Lung Cancer, Hx Pleural Effusion, Hx Pulmonary Edema, Hx Pulmonary Embolism, Hx Seasonal Allergies, Hx Sleep Apnea GI History: Reports: Hx Hiatal Hernia - Currently has one for 8+years Denies: Hx Cirrhosis, Hx Crohn's Disease, Hx Diverticulosis, Hx Gall Bladder Disease, Hx Gastroesophageal Reflux Disease, Hx Gastrointestinal Bleed, Hx Irritable Bowel, Hx Jaundice, Hx Obstructive Bowel, Hx Ileostomy, Hx Pyloric Stenosis, Hx Ulcer, Other GI Disorders History: Denies: Hx Renal Disease Musculoskeletal History: Reports: Hx Back Problems Denies: Hx Arthritis, Hx Rheumatoid Arthritis, Hx Bursitis, Hx Congenital Bone Abnormalities, Hx Fibromyalgia, Hx Gout, Hx Orthopedic Injury, Hx Osteoporosis, Hx Scoliosis, Hx Tendonitis, Other Musculoskeletal History Sensory History: Reports: Hx Cataracts - since 2012, Hx Contacts or Glasses Denies: Hx Eye Injury, Hx Eye Prosthesis, Hx Glaucoma, Hx Legally Blind, Hx Macular Degeneration, Hx Vision Problem, Hx Deafness, Hx Hearing Aid, Hx Hearing Problem, Other Sensory Impairments Opthamlomology History: Reports: Hx Cataracts - since 2012, Hx Contacts or Glasses Denies: Hx Eye Injury, Hx Eye Prosthesis, Hx Glaucoma, Hx Legally Blind, Hx Macular Degeneration, Hx Vision Problem, Other Sensory Impairments Neurological History: Reports: 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 Laminectomy 2005. Cataract removal. Cholecysectomy, tonsillectomy. several basal cell skin growths removed Hx Anesthesia Reactions: No - Immunization History Date of Tetanus Vaccine: Unk Date of Influenza Vaccine: Fall 2011 Infectious Disease History: No Infectious Disease History: Denies: Hx Hepatitis, Hx Human Immunodeficiency Virus (HIV), Hx of Known/ Suspected MRSA, Hx Shingles, Hx Tuberculosis, Traveled Outside the [place] in Last 30 Days - Family History Known Family History: Positive: Other - None -- both parents in s - Social History Alcohol Use: Rare Hx Substance Use: No Substance Use Type: Reports: None Hx Tobacco Use: No Smoking Status (MU): Never Smoked Tobacco Review of Systems Negative: Fever Negative: Chest Pain Positive: Shortness Of Breath, Cough Negative: Vomiting, Nausea All Other Systems Reviewed And Are Negative: Yes Physical Exam - Summary Physical Exam Summary: VITAL SIGNS: Reviewed. GENERAL: Patient is a well-developed and nourished female who is lying comfortable in the stretcher. Patient is in acute respiratory distress. HEAD AND FACE: No signs of trauma. No ecchymosis, hematomas or skull depressions. No sinus tenderness. EYES: PERRLA, EOMI x 2, No injected conjunctiva, no nystagmus. EARS: Hearing grossly intact. Ear canals and tympanic membranes are within normal limits. MOUTH: Oropharynx within normal limits. NECK: Supple, trachea is midline, no adenopathy, no JVD, no carotid bruit, no c- spine tenderness, neck with full ROM. CHEST: Symmetric, no tenderness at palpation LUNGS: Speak in full sentences. Saturating at 99 present on venture mask. Lungs diffuse crackles and gurgling. CVS: Regular rate and rhythm, S1 and S2 present, no murmurs or gallops appreciated. ABDOMEN: Soft, non-tender. No signs of distention. No rebound no guarding, and no masses palpated. Bowel sounds are normal. EXTREMITIES: FROM in all major joints, no edema, no cyanosis or clubbing. NEURO: Alert and oriented x 3. No acute neurological deficits. Speech is normal and follows commands. SKIN: Dry and warm Triage Information Reviewed: Yes Vital Signs On Initial Exam: Initial Vitals Temp Pulse Resp BP Pulse Ox 99.4 F 101 32 152/57 100 07/14/17 08:34 07/14/17 08:34 07/14/17 08:34 07/14/17 08:34 07/14/17 08:34 Vital Signs Reviewed: Yes - Yulia Coma Scale Coma Scale Total: 15 Diagnostics - Vital Signs Vital Signs Temp Pulse Resp BP Pulse Ox 07/14/17 08:37 97 100 07/14/17 08:36 152/57 07/14/17 08:34 99.4 F 101 32 152/57 100 - Laboratory Lab Results: Lab Results 07/14/17 07/14/17 07/14/17 Range/Units 09:28 10:07 10:07 WBC 9.3 (3.5-10.8) 10^3/ul RBC 4.40 (4.0-5.4) 10^6/ul Hgb 12.7 (12.0-16.0) g/dl Hct 39 (35-47) % MCV 89 (80-97) fL MCH 29 (27-31) pg MCHC 33 (31-36) g/dl RDW 15 (10.5-15) % Plt Count 296 (150-450) 10^3/ul MPV 8 (7.4-10.4) um3 Neut % (Auto) 66.2 (38-83) % Lymph % (Auto) 15.7 L (25-47) % Carson % (Auto) 9.5 H (1-9) % Eos % (Auto) 7.7 H (0-6) % Baso % (Auto) 0.9 (0-2) % Absolute Neuts (auto) 6.1 (1.5-7.7) 10^3/ul Absolute Lymphs (auto) 1.5 (1.0-4.8) 10^3/ul Absolute Monos (auto) 0.9 H (0-0.8) 10^3/ul Absolute Eos (auto) 0.7 H (0-0.6) 10^3/ul Absolute Basos (auto) 0.1 (0-0.2) 10^3/ul Absolute Nucleated RBC 0 10^3/ul Nucleated RBC % 0 Patient Temperature Not Reportable ABG pH 7.34 L (7.35-7.45) ABG pH (Temp Correct) Not Reportable ABG pCO2 70 H (35-45) mmHg ABG pCO2 (Temp Corrct Not Reportable ABG pO2 298 H (80-100) mmHg ABG pO2 (Temp Correct Not Reportable ABG HCO3 32.4 H (19-31) mmol/L ABG O2 Saturation 99.7 H (95-98) % ABG Base Excess 9.6 H (-2.0-2.0) Respiration Rate Not Reportable O2 Delivery Device nonrebreather Ventilator Type Not Reportable Vent Mode Not Reportable FiO2 100 Inspiratory Time Not Reportable PEEP Not Reportable Pressure Support Not Reportable Pressure Control Not Reportable EPAP Not Reportable IPAP Not Reportable BiPAP Not Reportable Sodium 138 (133-145) mmol/L Potassium 3.6 (3.5-5.0) mmol/L Chloride 97 L (101-111) mmol/L Carbon Dioxide 34 H (22-32) mmol/L Anion Gap 7 (2-11) mmol/L BUN 20 (6-24) mg/dL Creatinine 1.02 H (0.51-0.95) mg/dL Est GFR ( Amer) 67.2 (>60) Est GFR (Non-Af Amer) 52.3 (>60) BUN/Creatinine Ratio 19.6 (8-20) Glucose 125 H (70-100) mg/dL Lactic Acid (0.5-2.0) mmol/L Calcium 9.8 (8.6-10.3) mg/dL Total Bilirubin 0.70 (0.2-1.0) mg/dL AST 18 (13-39) U/L ALT 14 (7-52) U/L Alkaline Phosphatase 45 (34-104) U/L Troponin I 0.03 (<0.04) ng/mL C-Reactive Protein 3.98 (< 5.00) mg/L B-Natriuretic Peptide ( - 100) pg/mL Total Protein 6.7 (6.4-8.9) g/dL Albumin 3.8 (3.2-5.2) g/dL Globulin 2.9 (2-4) g/dL Albumin/Globulin Ratio 1.3 (1-3) 07/14/17 07/14/17 Range/Units 10:07 10:07 WBC (3.5-10.8) 10^3/ul RBC (4.0-5.4) 10^6/ul Hgb (12.0-16.0) g/dl Hct (35-47) % MCV (80-97) fL MCH (27-31) pg MCHC (31-36) g/dl RDW (10.5-15) % Plt Count (150-450) 10^3/ul MPV (7.4-10.4) um3 Neut % (Auto) (38-83) % Lymph % (Auto) (25-47) % Carson % (Auto) (1-9) % Eos % (Auto) (0-6) % Baso % (Auto) (0-2) % Absolute Neuts (auto) (1.5-7.7) 10^3/ul Absolute Lymphs (auto) (1.0-4.8) 10^3/ul Absolute Monos (auto) (0-0.8) 10^3/ul Absolute Eos (auto) (0-0.6) 10^3/ul Absolute Basos (auto) (0-0.2) 10^3/ul Absolute Nucleated RBC 10^3/ul Nucleated RBC % Patient Temperature ABG pH (7.35-7.45) ABG pH (Temp Correct) ABG pCO2 (35-45) mmHg ABG pCO2 (Temp Corrct ABG pO2 (80-100) mmHg ABG pO2 (Temp Correct ABG HCO3 (19-31) mmol/L ABG O2 Saturation (95-98) % ABG Base Excess (-2.0-2.0) Respiration Rate O2 Delivery Device Ventilator Type Vent Mode FiO2 Inspiratory Time PEEP Pressure Support Pressure Control EPAP IPAP BiPAP Sodium (133-145) mmol/L Potassium (3.5-5.0) mmol/L Chloride (101-111) mmol/L Carbon Dioxide (22-32) mmol/L Anion Gap (2-11) mmol/L BUN (6-24) mg/dL Creatinine (0.51-0.95) mg/dL Est GFR ( Amer) (>60) Est GFR (Non-Af Amer) (>60) BUN/Creatinine Ratio (8-20) Glucose (70-100) mg/dL Lactic Acid 1.2 (0.5-2.0) mmol/L Calcium (8.6-10.3) mg/dL Total Bilirubin (0.2-1.0) mg/dL AST (13-39) U/L ALT (7-52) U/L Alkaline Phosphatase (34-104) U/L Troponin I (<0.04) ng/mL C-Reactive Protein (< 5.00) mg/L B-Natriuretic Peptide 30 ( - 100) pg/mL Total Protein (6.4-8.9) g/dL Albumin (3.2-5.2) g/dL Globulin (2-4) g/dL Albumin/Globulin Ratio (1-3) Result Diagrams: 07/14/17 10:07 07/14/17 13:14 Lab Statement: Any lab studies that have been ordered have been reviewed, and results considered in the medical decision making process. - Radiology CXR Radiology Interpretation Completed By: Radiologist - NO ACTIVE CARDIOPULMONARY DISEASE. ED physician has reviewed this radiology report and agrees. - EKG 0916 Cardiac Rate: Tachycardia EKG Rhythm: Sinus Tachycardia - BPM 102 EKG Interpretation: No ST elevations, and poor EKG. Course/Dx - Course Assessment/Plan: This patient is a 77 year old F BIBA to [facility] accompanied by daughter with a chief complaint of SOB since one week ago, worse since yesterday. The patient rates the pain 0/10 in severity. Symptoms alleviated by nothing. Patient reports productive coughing. Patient denies fever, CP, and N/ V. She is currently on 12.5 L NC O2. An EKG reveals Sinus Tachycardia. CXR reveals, per radiologist, NO ACTIVE CARDIOPULMONARY DISEASE. ED physician has reviewed this radiology report and agrees. Test results with no significant abnormalities. ABG shows a PH of 7.34, pC02 of 70, and PO2 of 298. In the ED course the patient was given duoneb treatments, Levaquin, solu-medrol for the COPD exacerbation. At this point the patient was placed on BiPap because the patient was hypercapnia. Consulted Dr. Soler (hospitalist) at 1139 who agrees to admit. The patient is agreeable with this plan. The patient is hemodynamically stable, alert and oriented x3. - Diagnoses Provider Diagnoses: Hypercapnia, COPD exacerbation - Physician Notifications Discussed Care of Patient With: Courtney Soler Time Discussed With Above Provider: 11:39 Instructed by Provider To: Other - Consulted Dr. Soler (hospitalist) at 1139 who agrees to admit. Discharge - Discharge Plan Condition: Stable Disposition: ADMITTED TO [facility] documentation as recorded by the Brandyn robins Alfonso accurately reflects the service I personally performed and the decisions made by me, Alcon Hood MD.
[2017-07-14] MEDS: Mometasone/Formoter 200/5 MDI INH SCH (19:08)
[2017-07-14 21:02] LABS: Urine Bacteria 1+ (Absent); Urine Bilirubin Negative (Negative); Urine Glucose 1+(50 mg/dL) (Negative); Urine Nitrite Negative (Negative)
[2017-07-15] MEDS: methylPREDNISolone 125 MG* 2 ML VIAL IV SCH ×3 (01:22→21:43)
[2017-07-15] MEDS: Albuterol/Ipratropium NEB.SOL* Albuterol 2.5 MG/Ipratropium 0.5 MG 3 ML INH SCH ×6 (03:32→23:26)
[2017-07-15] MEDS: Heparin VIAL(*) 5000 UNITS/ML VIAL (FIVE THOUSAND) SUBCUT SCH ×3 (05:42→21:45)
[2017-07-15 05:52] LABS: Hematocrit 35 % (35-47); Hemoglobin 11.4 g/dl (12.0-16.0); Mean Corpuscular HGB Conc 33 g/dl (31-36); Mean Corpuscular Hemoglobin 29 pg (27-31); Mean Corpuscular Volume 88 fL (80-97); Mean Platelet Volume 8 um3 (7.4-10.4); Red Blood Count 3.98 10^6/ul (4.0-5.4); Red Cell Distribution Width 14 % (10.5-15); White Blood Count 5.7 10^3/ul (3.5-10.8)
[2017-07-15 06:08] LABS: BUN/Creatinine Ratio 22.2 (8-20); Calcium 9.2 mg/dL (8.6-10.3); EGFR African American 62.9 (>60); EGFR Non-African American 48.9 (>60); Potassium 4.2 mmol/L (3.5-5.0)
[2017-07-15] MEDS: Omeprazole CAP* 20 MG PO SCH (07:23)
[2017-07-15] MEDS: Gabapentin CAP(*) 300 MG PO SCH ×3 (07:23→21:46)
[2017-07-15] MEDS: Mometasone/Formoter 200/5 MDI INH SCH ×2 (08:28→20:15)
--- NOTE | 2017-07-15 09:02 | PN ---
Subjective Date of Service: 07/15/17 Interval History: Patient seen this morning. Reports improvement in her breathing today. Cough productive of clear sputum. No fever or chills. 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 Lives with daughter , uses walker at baseline. Family History: Unchanged from Admission Social History: Unchanged from Admission Past Medical History: Unchanged from Admission Objective Active Medications: Acetaminophen (Tylenol Tab*) 650 mg PO Q4H PRN Albuterol (Ventolin 2.5 Mg/3 Ml Neb.Queta*) 2.5 mg INH Q2H PRN Albuterol/Ipratropium (Duoneb (Albuterol 2.5 Mg/Ipratropium 0.5 Mg)) 1 neb INH [id number] AWAKE CRISTOBAL Gabapentin (Neurontin Cap(*)) 300 mg PO TID CRISTOBAL Heparin Sodium (Porcine) (Heparin Vial(*)) 5,000 units SUBCUT Q8HR CRISTOBAL Ceftriaxone Sodium 1,000 mg/ (Sodium Chloride) 50 mls @ 200 mls/hr IVPB Q24H CRISTOBAL Azithromycin 500 mg/ Sodium (Chloride) 250 mls @ 250 mls/hr IVPB Q24H CRI[facility] Methylprednisolone Sodium Succinate (Solu-Medrol 125mg *) 60 mg IV Q8H CRISTOBAL Mometasone Furoate/Formoterol Fumar (Dulera 200/5 Mdi*) 2 puff INH BID CRISTOBAL Omeprazole (Prilosec Cap*) 20 mg PO DAILY C[facility] Ondansetron HCl (Zofran Inj*) 4 mg IV Q6H PRN Vital Signs 07/14/17 07/14/17 07/14/17 11:56 12:00 12:30 Temperature Pulse Rate 91 92 98 Respiratory 16 23 26 Rate Blood Pressure 120/65 134/71 (mmHg) O2 Sat by Pulse 96 96 95 Oximetry 07/14/17 07/14/17 07/14/17 20:44 21:00 21:39 Temperature Pulse Rate 92 80 75 Respiratory 32 24 25 Rate Blood Pressure 156/72 120/63 (mmHg) O2 Sat by Pulse 99 99 100 Oximetry 07/15/17 07/15/17 07/15/17 08:00 08:01 08:18 Temperature Pulse Rate 87 97 84 Respiratory 22 17 20 Rate Blood Pressure 112/67 (mmHg) O2 Sat by Pulse 99 100 99 Oximetry Oxygen Devices in Use Now: High Flow Heated Nasal Cannula - 15L/70% Appearance: Elderly, F, laying in bed in NAD Eyes: No Scleral Icterus Ears/Nose/Mouth/Throat: Mucous Membranes Moist Neck: NL Appearance and Movements; NL JVP Respiratory: Symmetrical Chest Expansion and Respiratory Effort, - - Diffuse wheezing and coarse expiratory BS B/L Cardiovascular: NL Sounds; No Murmurs; No JVD, RRR Abdominal: NL Sounds; No Tenderness; No Distention Lymphatic: No Cervical Adenopathy Extremities: No Edema Skin: No Rash or Ulcers Neurological: Alert and Oriented x 3 Result Diagrams: 07/15/17 05:35 07/15/17 05:35 Additional Lab and Data: . Microbiology and Other Data: Microbiology 07/14/17 20:45 Legionella Urinary Antigen - Final Urine Negative Legionella Streptococcus pneumoniae Ag Screen - Final Negative S. pneumo Antigen 07/14/17 14:40 Nasal Screen MRSA (PCR)(CARIE) - Final Nasal Mrsa Negative 07/14/17 13:15 Influenza Types A,B Antigen (CARIE) - Final Nasal Specimen received for Influenza A/B Molecular testing Assess/Plan/Problems-Billing Assessment: Acute on chronic hypoxic respiratory failure 2/2 COPD exacerbation in a 77 yo F with hx of COPD on home 2L NC, HTN, peripheral neuropathy, GERD, Churg-Dave - Patient Problems (1) Acute and chronic respiratory failure with hypoxia Current Visit: Yes Comment: 2/2 COPD exacerbation. Continue CTX/Azithromycin. Will decrease IV Steroids to 60 mg BID. Continue nebs/inhalers. On 15L/70% Vapotherm, continue to wean today. On baseline 2L NC and 10 mg PO prednisone at home. (2) HTN (hypertension) Current Visit: Yes Comment: BPs stable, holding home medicatons for now (3) Peripheral neuropathy Current Visit: Yes SNOMED Code(s): 049632756 Comment: Continue gabapentin (4) DVT prophylaxis Current Visit: No Comment: HSQ (5) DNR (do not resuscitate) Current Visit: No Status and Disposition: Inpatient for O2 needs, steroids, may transfer to floor today.
[2017-07-15] MEDS: Azithromycin IV(*) 500 MG in NS 0.9% 250 ML* 250 ML IVPB SCH ×2 (13:22→14:55)
[2017-07-15] MEDS: cefTRIAXone VIAL(*) 1,000 MG in NS 0.9% 50 ML* 50 ML IVPB SCH (16:40)
[2017-07-16] MEDS: Albuterol/Ipratropium NEB.SOL* Albuterol 2.5 MG/Ipratropium 0.5 MG 3 ML INH SCH ×6 (03:35→23:09)
[2017-07-16] MEDS: Heparin VIAL(*) 5000 UNITS/ML VIAL (FIVE THOUSAND) SUBCUT SCH ×3 (06:35→21:26)
[2017-07-16] MEDS: Mometasone/Formoter 200/5 MDI INH SCH ×2 (07:40→19:45)
[2017-07-16] MEDS: Omeprazole CAP* 20 MG PO SCH (07:58)
[2017-07-16] MEDS: Gabapentin CAP(*) 300 MG PO SCH ×3 (07:58→21:25)
[2017-07-16] MEDS: methylPREDNISolone 125 MG* 2 ML VIAL IV SCH (08:00)
--- NOTE | 2017-07-16 10:28 | PN ---
Subjective Date of Service: 07/16/17 Interval History: Patient seen this morning, says she is feeling improved from yesterday. Reports breathing is stable at rest (although looks a bit winded speaking to me) but she feels SOB when ambulating to the bathroom and back. Minimal cough. Family History: Unchanged from Admission Social History: Unchanged from Admission Past Medical History: Unchanged from Admission Objective Active Medications: Acetaminophen (Tylenol Tab*) 650 mg PO Q4H PRN Albuterol (Ventolin 2.5 Mg/3 Ml Neb.Queta*) 2.5 mg INH Q2H PRN Albuterol/Ipratropium (Duoneb (Albuterol 2.5 Mg/Ipratropium 0.5 Mg)) 1 neb INH [id number] AWAKE CRISTOBAL Amlodipine Besylate (Norvasc Tab*) 2.5 mg PO DAILY CRISTOBAL Gabapentin (Neurontin Cap(*)) 300 mg PO TID CRISTOBAL Heparin Sodium (Porcine) (Heparin Vial(*)) 5,000 units SUBCUT Q8HR CRISTOBAL Hydrochlorothiazide (Hydrodiuril Tab*) 12.5 mg PO DAILY [facility] Ceftriaxone Sodium 1,000 mg/ (Sodium Chloride) 50 mls @ 200 mls/hr IVPB Q24H CRISTOABL Azithromycin 500 mg/ Sodium (Chloride) 250 mls @ 250 mls/hr IVPB Q24H CRISTOBAL Methylprednisolone Sodium Succinate (Solu-Medrol 125mg *) 60 mg IV BID CRISTOBAL Mometasone Furoate/Formoterol Fumar (Dulera 200/5 Mdi*) 2 puff INH BID CRISTOBAL Omeprazole (Prilosec Cap*) 20 mg PO DAILY CRISTOBAL Ondansetron HCl (Zofran Inj*) 4 mg IV Q6H PRN Vital Signs 07/15/17 07/15/17 07/15/17 11:00 11:08 11:15 Temperature Pulse Rate 104 102 95 Respiratory 19 17 16 Rate Blood Pressure 122/74 (mmHg) O2 Sat by Pulse 98 97 98 Oximetry 07/15/17 07/15/17 07/15/17 14:55 15:35 16:25 Temperature 97.3 F Pulse Rate 89 86 Respiratory 28 26 Rate Blood Pressure 132/60 (mmHg) O2 Sat by Pulse 99 99 Oximetry 07/16/17 07/16/17 07/16/17 03:36 07:34 07:41 Temperature 97.7 F Pulse Rate 91 98 114 Respiratory 20 18 24 Rate Blood Pressure 139/58 (mmHg) O2 Sat by Pulse 96 99 96 Oximetry Oxygen Devices in Use Now: Nasal Cannula - 2L Appearance: Elderly, F, laying in bed in mild respiratory distress Eyes: No Scleral Icterus Ears/Nose/Mouth/Throat: Mucous Membranes Moist Neck: NL Appearance and Movements; NL JVP Respiratory: - - Mild tachypnea, diffuse wheezing throughout, no rales Cardiovascular: NL Sounds; No Murmurs; No JVD, RRR Abdominal: NL Sounds; No Tenderness; No Distention Lymphatic: No Cervical Adenopathy Extremities: No Edema Skin: No Rash or Ulcers Neurological: Alert and Oriented x 3 Result Diagrams: 07/15/17 05:35 07/15/17 05:35 Additional Lab and Data: . Microbiology and Other Data: Microbiology 07/14/17 20:45 Legionella Urinary Antigen - Final Urine Negative Legionella Streptococcus pneumoniae Ag Screen - Final Negative S. pneumo Antigen 07/14/17 14:40 Nasal Screen MRSA (PCR)(CARIE) - Final Nasal Mrsa Negative 07/14/17 13:15 Influenza Types A,B Antigen (CARIE) - Final Nasal Specimen received for Influenza A/B Molecular testing Assess/Plan/Problems-Billing Assessment: Acute on chronic hypoxic respiratory failure 2/2 COPD exacerbation in a 77 yo F with hx of COPD on home 2L NC, HTN, peripheral neuropathy, GERD, Churg-Dave - Patient Problems (1) Acute and chronic respiratory failure with hypoxia Current Visit: Yes Comment: 2/2 COPD exacerbation. Continue CTX/Azithromycin. Continue IV Steroids to 60 mg BID. Continue nebs/inhalers. Weaned down to her home 2L NC. On baseline 10 mg PO prednisone at home. (2) HTN (hypertension) Current Visit: Yes Comment: BPs trending up. Resume Amlodipine and HCTZ, hold Lisinopril. (3) Peripheral neuropathy Current Visit: Yes SNOMED Code(s): 846831620 Comment: Continue gabapentin (4) DVT prophylaxis Current Visit: No Comment: HSQ (5) DNR (do not resuscitate) Current Visit: No Status and Disposition: Inpatient for O2 needs, steroids, potential discharge in next 24-48 hours.
[2017-07-16] MEDS: Hydrochlorothiazide TAB* 25 MG PO SCH (11:43)
[2017-07-16] MEDS: amLODIPine TAB* 5 MG PO SCH (11:43)
[2017-07-16] MEDS: Azithromycin IV(*) 500 MG in NS 0.9% 250 ML* 250 ML IVPB SCH (13:43)
[2017-07-16] MEDS ORDERED: Azithromycin TAB* 250 MG PO ONE (16:51)
[2017-07-16] MEDS: cefTRIAXone VIAL(*) 1,000 MG in NS 0.9% 50 ML* 50 ML IVPB SCH (17:02)
[2017-07-16] MEDS: predniSONE TAB* 20 MG PO SCH (17:33)
[2017-07-17] MEDS: Albuterol/Ipratropium NEB.SOL* Albuterol 2.5 MG/Ipratropium 0.5 MG 3 ML INH SCH ×4 (00:24→12:00)
[2017-07-17] MEDS: Heparin VIAL(*) 5000 UNITS/ML VIAL (FIVE THOUSAND) SUBCUT SCH (05:59)
[2017-07-17 07:14] LABS: Hematocrit 32 % (35-47); Hemoglobin 10.5 g/dl (12.0-16.0); Mean Corpuscular HGB Conc 33 g/dl (31-36); Mean Corpuscular Hemoglobin 29 pg (27-31); Mean Corpuscular Volume 88 fL (80-97); Mean Platelet Volume 9 um3 (7.4-10.4); Red Blood Count 3.65 10^6/ul (4.0-5.4); Red Cell Distribution Width 15 % (10.5-15); White Blood Count 12.5 10^3/ul (3.5-10.8)
[2017-07-17 07:15] LABS: Add Diff/Slide Review? Slide Review Added; Comments Flag Yes
[2017-07-17] MEDS: Mometasone/Formoter 200/5 MDI INH SCH (08:17)
--- NOTE | 2017-07-17 09:05 | DCNOTE ---
Patient seen this morning. Reports arm pain/burning yesterday with blown IV, was unable to get IV steroid/ABx, switched to PO. Reports breathing feels better today, still wheezing but less, cough is non-productive. On exam, RRR, s1 and s2 present, no m/g/r, lungs with good air movement, some coarse end-expiratory wheezing but improved from yesterday, some transmitted upper airway sounds, no LE edema Will discharge home today on home 2L NC, will taper prednisone slowly back down to home maintenance dose of 10 mg daily, continue additional ABx. Has a friend who is staying with her for the weekend until daughter returns on 07/20
[2017-07-17 09:34] VITALS: BP 118/71
[2017-07-17] MEDS: Gabapentin CAP(*) 300 MG PO SCH (10:31)
[2017-07-17] MEDS: predniSONE TAB* 20 MG PO SCH (10:31)
[2017-07-17] MEDS: Omeprazole CAP* 20 MG PO SCH (10:31)
[2017-07-17] MEDS: Hydrochlorothiazide TAB* 25 MG PO SCH (10:31)
[2017-07-17] MEDS: amLODIPine TAB* 5 MG PO SCH (10:32)
--- NOTE | 2017-07-17 17:24 | DS ---
CC: Dr. Rhodes DISCHARGE SUMMARY: DATE OF ADMISSION: 07/14/17 DATE OF DISCHARGE: 07/17/17 PRIMARY CARE PROVIDER: Dr. Rhodes. PRINCIPAL DISCHARGE DIAGNOSIS: Acute hypoxic respiratory failure secondary to chronic obstructive pu lmonary disease exacerbation. SECONDARY DIAGNOSES: 1. Churg-Dave syndrome. 2. Neuropathy. 3. Hypertension. 4. Osteoporosis. 5. Chronic obstructive pulmonary disease, on home 2 L of oxygen and 10 mg of prednisone. DISCHARGE MEDICATION REGIMEN: 1. Cefpodoxime 200 mg by mouth 2 times daily x3 days. 2. Prednisone 40 mg by mouth daily taper as instructed. 3. Amlodipine 2.5 mg by mouth daily. 4. Gabapentin 300 mg by mouth 3 times daily. 5. Hydrochlorothiazide 12.5 mg by mouth daily. 6. Prednisone 10 mg by mouth daily to resume after taper. 7. Albuterol 2.5 mg inhaled every 6 hours as needed for shortness of breath or wheezing. 8. Symbicort 1 puff inhaled 2 times daily. 9. Lisinopril 10 mg by mouth daily. 10. Omeprazole 20 mg by mouth daily. 11. Albuterol 2 puffs inhaled every 6 hours as needed for shortness of breath or wheezing. 12. Vitamin D 2000 units by mouth daily. STUDIES DONE DURING HOSPITALIZATION: Chest x-ray, impression: No active cardiopulmonary disease. HISTORY OF PRESENT ILLNESS AND HOSPITAL SUMMARY: Please see the full history and physical by Juan park NP for full details. Briefly, Mrs. Reilly is a 77- year-old female with a past medical history as above, who presented to the hospital with progressive shortness of breath and dyspnea on e xertion. The patient states her pulse ox at home has been showing her O2 saturation is dropping in t he 80s despite supplemental oxygen. She has also had a cough productive of clear sputum. She came to the ED and initially was placed on BiPAP and then transferred to the ICU to continue on Vapotherm. She had a chest x-ray that was relatively unremarkable. She had diffuse wheezing, was diagnosed with a COPD exacerbation. She was started on IV steroids, around the clock nebulizers and antibiotics. O john the following days, her symptoms improved. She was able to be wean from Vapotherm down to her [facility] oxygen of 2 L nasal cannula. The patient still had some wheezing on exam on the day of discharge, but was significantly improved from previous days. She will be discharged home with a prednisone tap er as well as few additional days of antibiotics. Her white blood cell count did jump up to 12 again on the day of discharge, but there was no left shift and the patient was feeling significantly daniel r, so I do not feel it is necessary to monitor her anymore in the hospital. The patient should follow up with her PCP as an outpatient. TIME SPENT: Total time spent on this discharge 45 minutes. This is a summary of the hospitalization, please see the full medical record for further details. [id number]/[facility] #: [id number]
== END 2017-07-17 11:55 | disposition home health service (06) | DRG 190 ==
LOC: ED 08:28 → ICU 11:38 → MED 07-15 15:08
PROVIDERS: ADMIT Internal Medicine; ATTEND Hospitalist
PROC: 5A09357 Assistance with Respiratory Ventilation, Less than 24 Consecutive Hours, Continuous Positive Airway Pressure (ICD-10-PCS; principal; 2017-07-14)
DX: J44.1 Chronic obstructive pulmonary disease with (acute) exacerbation (principal); J96.21 Acute and chronic respiratory failure with hypoxia; M30.1 Polyarteritis with lung involvement [Churg-Strauss]; G62.9 Polyneuropathy, unspecified; K21.9 Gastro-esophageal reflux disease without esophagitis; Z66 Do not resuscitate; K44.9 Diaphragmatic hernia without obstruction or gangrene; I10 Essential (primary) hypertension; M81.0 Age-related osteoporosis without current pathological fracture; Z99.81 Dependence on supplemental oxygen; Z79.52 Long term (current) use of systemic steroids; Z82.49 Family history of ischemic heart disease and other diseases of the circulatory system; Z82.3 Family history of stroke; Z88.8 Allergy status to other drugs, medicaments and biological substances; Z98.42 Cataract extraction status, left eye; Z98.41 Cataract extraction status, right eye; F43.9 Reaction to severe stress, unspecified
CPT/HCPCS: 36415; 71020; 80048; 80053; 81003; 81015; 82565; 82803; 83605; 83880; 84484; 84520; 85025; 85610; 85730; 86140; 87040; 87070; 87086; 87205; 87502; 87641; 87899; 93005; 94640; 94660; 94760; A9270-GY; J0456; J0696; J1644; J2930; J7512

== ENCOUNTER 2017-12-04 15:20 | Observation (INO) | payer MEDICARE ==
[2017-12-04] MEDS ORDERED: methylPREDNISolone 125 MG* 2 ML VIAL IV ONE (15:28)
[2017-12-04] MEDS ORDERED: Albuterol/Ipratropium NEB.SOL* Albuterol 2.5 MG/Ipratropium 0.5 MG 3 ML INH ONE (15:28)
[2017-12-04 16:25] LABS: ABS Basophils 0.1 10^3/ul (0-0.2); ABS Eosinophils 0.3 10^3/ul (0-0.6); ABS Lymphocytes 1.2 10^3/ul (1.0-4.8); ABS Monocytes 0.9 10^3/ul (0-0.8); ABS Neutrophils 10.1 10^3/ul (1.5-7.7); ABS Nucleated RBC 0 10^3/ul; Eosinophil % 2.1 % (0-6); Hematocrit 35 % (35-47); Hemoglobin 11.4 g/dl (12.0-16.0); Lymphocyte % 9.9 % (25-47); Mean Corpuscular HGB Conc 32 g/dl (31-36); Mean Corpuscular Hemoglobin 28 pg (27-31); Mean Corpuscular Volume 88 fL (80-97); Mean Platelet Volume 7.9 um3 (7.4-10.4); Nucleated Red Blood Cells % 0; Platelet Count 288 10^3/ul (150-450); Red Blood Count 4.04 10^6/ul (4.0-5.4); Red Cell Distribution Width 14 % (10.5-15); White Blood Count 12.5 10^3/ul (3.5-10.8)
[2017-12-04 16:26] LABS: EGFR Non-African American 48.4 (>60)
--- NOTE | 2017-12-04 17:14 | RAD ---
INDICATION: Cough, shortness of breath. COPD COMPARISON: July 14, 2017 TECHNIQUE: Dual energy PA and routine lateral views of the chest were obtained. REPORT: Elevated lung volumes and both diffuse mild prominence of the interstitial markings and patchy rarefaction of the mid to upper lung zone interstitial markings. No focal pulmonary lesion, compelling alveolar consolidation, pleural effusion, pneumothorax. Negative for cardiomegaly. Unremarkable central pulmonary vasculature and mediastinal contours. IMPRESSION: Stigmata of obstructive lung disease. No acute pulmonary or cardiac process evident.
[2017-12-04] MEDS ORDERED: Benzonatate CAP* 100 MG PO PRN (17:34)
[2017-12-04] MEDS ORDERED: Ondansetron INJ* 2 MG/ML VIAL IV PRN (17:34)
[2017-12-04] MEDS ORDERED: Albuterol 2.5 MG/3 ML NEB.SOL* (0.083%) INH PRN (17:34)
[2017-12-04] MEDS ORDERED: Acetaminophen TAB* 325 MG PO PRN (17:34)
[2017-12-04] MEDS: Gabapentin CAP(*) 300 MG PO SCH (20:11)
[2017-12-04] MEDS: Albuterol/Ipratropium NEB.SOL* Albuterol 2.5 MG/Ipratropium 0.5 MG 3 ML INH SCH (20:29)
[2017-12-04 20:32] LABS: Urine Appearance Cloudy; Urine Blood Negative (Negative); Urine Color Yellow; Urine Ketones Trace (Negative); Urine Protein 1+(30 mg/dL) (Negative); Urine Specific Gravity 1.023 (1.010-1.030); Urine Urobilinogen Negative (Negative)
[2017-12-04] MEDS: guaiFENesin ER TAB 600 MG PO SCH (21:18)
[2017-12-04] MEDS: Heparin VIAL(*) 5000 UNITS/ML VIAL (FIVE THOUSAND) SUBCUT SCH (21:20)
--- NOTE | 2017-12-04 21:52 | HP ---
CC: Faustino Rhodes MD * ADMISSION HISTORY AND PHYSICAL: DATE OF ADMISSION: 12/04/17 PRIMARY CARE PROVIDER: Faustino Rhodes MD MY ATTENDING WHILE IN THE HOSPITAL: Saul Boyd MD * (DICTATED BY NELSON BUNDY) CHIEF COMPLAINT: Sudden onset of shortness of breath. HISTORY OF PRESENT ILLNESS: Ms. 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 The patient had no chest pain, but did feel fluttering sensation in her chest. The patient called her daughter and was barely able to get out words according to the daughter. The patient took her nebulizer at home and this helped a little bit. The patient had a significant amount of wheezing. This has been slightly increased over her baseline over the past couple of weeks, but she has had no other decreases in her functional capacity. No increase in her cough or sputum. No fevers, chills or other signs of respiratory infection. The patient has a chronic cough with frothy sputum production which is white and not colored. The patient as well has had no swelling in her legs. The patient' s daughter states she is possibly slightly more swollen in the face. The patient had an episode like this before where she had shortness of breath with eating the same batch of sauerkraut. However, she has not had this when she was eating sauerkraut on a Chung. The patient has not been in to see her underwater welder or supervisor tank house recently regarding her Churg-Dave or asthma. The patient's prednisone was recently increased by her primary care provider due to recurrent admissions for COPD/asthma exacerbations due to shortness of breath. The patient had an elevated troponin in the emergency department. Due to shortness of breath and elevated troponin, we were asked to evaluate for admission. PAST MEDICAL HISTORY: 1. Asthma. 2. Churg-Dave vasculitis. 3. Neuropathy. 4. Hypertension. 5. Osteoporosis. PAST SURGICAL HISTORY: 1. Cholecystectomy. 2. Tonsillectomy. 3. Tubal ligation. 4. Back surgery in 2005. 5. Cardiac catheterization. 6. Basal cell carcinoma removal. MEDICATIONS: On admission: 1. Mucinex Fast-Max Day Time 5 mL p.o. daily as needed. 2. Alendronate 70 mg p.o. weekly. 3. Prednisone 10 mg p.o. daily. 4. Potassium 20 mEq p.o. every other day. 5. Symbicort 2 puffs inhalation b.i.d. 6. Amlodipine 25 mg p.o. daily. 7. Lisinopril 10 mg p.o. daily. 8. Gabapentin 300 mg p.o. t.i.d. 9. Albuterol 2 puffs inhalation q.4 hours as needed. 10. Omeprazole 20 mg p.o. daily. 11. Unknown nebulizer. ALLERGIES: SINGULAIR. FAMILY HISTORY: The patient's father at 93 of old age. The patient's mother at 91 of stroke. The patient has no other syndromes that run in her family. SOCIAL HISTORY: The patient has never smoked. Does not drink alcohol. Does not use illicit drugs. The patient is . 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 Her surrogate decision maker is her son, Donny. The patient also lives with her daughter and ambulates with a walker. REVIEW OF SYSTEMS: A 14-point review of systems was reviewed and is negative except as above. PHYSICAL EXAMINATION GENERAL: The patient is a 77-year-old female who appears stated age and sitting comfortably in bed, in no acute distress. VITAL SIGNS: Temperature 98.0, heart rate 99, respiratory rate 26, oxygen saturation 95% on 2 L, and blood pressure 119/57. HEENT: Head: Normocephalic, atraumatic. Sclerae anicteric. No conjunctival injection. Nasal mucosa moist. Oral mucosa moist. Possible thrush on the hard palate. No other pharyngeal erythema, discharge, or exudate. NECK: Supple, nontender. No lymphadenopathy. No carotid bruits auscultated. No JVD. RESPIRATORY: Diminished breath sounds throughout. End expiratory wheezes with prolonged expiratory phase. No other adventitious lung sounds. CARDIAC: Tachycardic. Grade 2/6 holosystolic murmur heard best at the left lower sternal border. ABDOMEN: Soft, nontender, nondistended. Bowel sounds present, normoactive in all 4 quadrants. No hepatosplenomegaly. No abdominal bruits auscultated. GENITOURINARY: No suprapubic or CVA tenderness. NEURO: Cranial nerves II through XII intact. No focal deficits. Neuropathy affecting the sensation in her bilateral lower extremities equally with pain with light touch. PSYCHIATRIC: Pleasant and cooperative. Alert and oriented x3. SKIN: The patient has significant burden of actinic keratosis as well as a lesion consistent with basal cell carcinoma on her right lower leg as well as several cutaneous horns. LABORATORY DATA: White blood cell count 12.5, hemoglobin 11.4, platelet count 288,000. Sodium 139, potassium 4.4, chloride 100, carbon dioxide 30, anion gap 9, BUN 21, creatinine 1.09, glucose 150. Lactic acid 1.4. Calcium 9.1. Total bilirubin 0.4, AST 15, ALT 11, alkaline phosphatase 45. Troponin I 0.05. CRP 2.81. BNP 95. Total protein 7.1. Albumin 4.2, globulin 2.9. DIAGNOSTIC STUDIES: Chest x-ray read as stigmata of chronic obstructive lung disease, no acute pulmonary or cardiac process evident. Electrocardiogram shows normal sinus rhythm, several PVCs, no blocks or hypertrophy. No ST segment abnormalities. Normal axis. ASSESSMENT AND PLAN/IMPRESSION: Ms. Pablo Sierra is a 77-year-old female with a past medical history significant for recurrent asthma exacerbations, Churg- Dave vasculitis with mononeuritis multiplex, hypertension, and osteoporosis who presents with another asthma exacerbation, which came on suddenly in the setting of eating sauerkraut and is somewhat resolved at this point, but continues to have wheezing. The patient will be admitted to the hospital for nebulizers, increase prednisone dosing, supportive care and to trend her elevated troponin. 1. Asthma exacerbation. The patient had a sudden onset exacerbation of her asthma twice while eating sauerkraut. Sauerkraut is a known source of nitrates , which she may have inhaled in aerosol form. Nitrates are known precipitant of asthma exacerbations. The patient's breathing normalized after several breathing treatments. The patient had no chest pain, but did have a fluttering in her chest. This likely represents sinus tachycardia from her increased work of breathing. The patient will be continued on nebulizers q.4 hours while awake and prednisone 60 mg p.o. daily with a taper back to her normal dose. The patient should follow up outpatient with her supervisor tank house for management of her asthma and Churg-Dave vasculitis. 2. Elevated troponin. The patient's troponin is likely elevated in the setting of significantly increased shortness of breath and demand ischemia. The patient will have troponins drawn x3. This is unlikely acute myocardial infarction. The patient has no ST segment changes indicating ischemia or chest pain at this time. 3. Churg-Dave vasculitis. The patient will be continued on prednisone therapy, which will be increased while she is in the hospital. The patient was tapered off her steroid sparing agent, azathioprine, in 2012 due to the belief that her disease was in remission; however, she has not followed up with her underwater welder since then. The patient talked about establishing with a new underwater welder in [place]. This would be advisable as the patient has chronic oxygen therapy and might benefit from steroid sparing agents. It will be unadvisable for the patient to remain on continuous prednisone therapy due to side effects including known osteoporosis, which will only get worse as well as bruising, glaucoma and immunosuppression. This will need to be done in controlled fashion, but cannot be attempted while she is in the hospital for an acute illness requiring increased steroid dosing. 4. Neuropathy. Continue gabapentin. 5. Hypertension. Continue amlodipine and lisinopril. 6. DVT prophylaxis. The patient will have heparin subcu and SCDs. The patient is at high risk. 7. FEN. The patient will have a heart healthy diet without caffeine and no fluids at this time as she is normotensive and predisposed to fluid retention. 8. Code status. The patient will be a full code. The patient's surrogate decision maker is her sonDonny TIME SPENT: Approximately 60 minutes were spent on this admission, 30 of which was spent [id number] with the patient obtaining history and physical and discussing treatment plan. NELSON BUNDY [id number]/[facility] #: [id number] MAX
[2017-12-05] MEDS: Albuterol/Ipratropium NEB.SOL* Albuterol 2.5 MG/Ipratropium 0.5 MG 3 ML INH SCH ×5 (00:55→14:49)
[2017-12-05] MEDS: Heparin VIAL(*) 5000 UNITS/ML VIAL (FIVE THOUSAND) SUBCUT SCH ×2 (05:18→13:52)
[2017-12-05 05:26] LABS: ABS Basophils 0 10^3/ul (0-0.2); ABS Eosinophils 0 10^3/ul (0-0.6); ABS Lymphocytes 0.6 10^3/ul (1.0-4.8); ABS Monocytes 0.1 10^3/ul (0-0.8); ABS Neutrophils 6.2 10^3/ul (1.5-7.7); ABS Nucleated RBC 0 10^3/ul; Eosinophil % 0 % (0-6); Hematocrit 33 % (35-47); Hemoglobin 11.1 g/dl (12.0-16.0); Lymphocyte % 8.9 % (25-47); Mean Corpuscular HGB Conc 34 g/dl (31-36); Mean Corpuscular Hemoglobin 29 pg (27-31); Mean Corpuscular Volume 87 fL (80-97); Mean Platelet Volume 8.3 um3 (7.4-10.4); Nucleated Red Blood Cells % 0.1; Platelet Count 269 10^3/ul (150-450); Red Blood Count 3.82 10^6/ul (4.0-5.4); Red Cell Distribution Width 14 % (10.5-15); White Blood Count 6.9 10^3/ul (3.5-10.8)
[2017-12-05] MEDS ORDERED: amLODIPine TAB* 5 MG PO SCH (09:00)
[2017-12-05] MEDS ORDERED: predniSONE TAB* 20 MG PO SCH (09:00)
[2017-12-05] MEDS ORDERED: Lisinopril TAB* 10 MG PO SCH (09:00)
[2017-12-05] MEDS ORDERED: Omeprazole CAP* 20 MG PO SCH (09:00)
[2017-12-05] MEDS: Gabapentin CAP(*) 300 MG PO SCH ×2 (10:01→13:51)
[2017-12-05] MEDS: guaiFENesin ER TAB 600 MG PO SCH (10:01)
[2017-12-05] MEDS ORDERED: Piperacillin/Tazobac ADVAN(*) 3.375 GM in NS 0.9% 100 ML* 100 ML IVPB ONE (13:57)
[2017-12-05] MEDS ORDERED: Zosyn per Pharmacy* NOTE FOLLOW UP SCH (14:00)
[2017-12-05 15:40] VITALS: BP 117/57
--- NOTE | 2017-12-05 16:29 | ED ---
Msiti Adler Thomas, scribed for Alcon Hood MD on 12/04/17 at 1533 . Complex/Multi-Sys Presentation - HPI Summary HPI Summary: The patient is a 77 year old female who was brought in by ambulance after she ate sour kraut prior to one hour prior to arrival and all of a sudden I felt fluttery and funny. The patient is not able to elaborate her symptoms beyond this. The patient denies chest pain, shortness of breath, nausea, palpitations, tongue swelling, feeling of throat swelling, lip swelling, difficulty swallowing , and pruritus. - History Of Current Complaint Time Seen by Provider: 12/04/17 15:22 Hx Obtained From: Patient Onset/Duration: Sudden Onset, Lasting Minutes, Still Present Timing: Constant Severity Initially: Mild Character: Unable To Describe Alleviating Factor(s): None Associated Signs And Symptoms: Positive: Other - NEGATIVE: chest pain, shortness of breath, nausea, palpitations, tongue swelling, feeling of throat swelling, lip swelling, difficulty swallowing, and pruritus. - Allergies/Home Medications Allergies/Adverse Reactions: Allergies Allergy/AdvReac Type Severity Reaction Status Date / Time montelukast [From [facility]] Allergy See Comment Verified 12/04/17 16:47 Home Medications: Home Medications Albuterol HFA INHALER* [Ventolin HFA Inhaler*] 2 puff INH Q4H PRN 12/04/17 [ History Confirmed 12/04/17] Alendronate (NF) [Fosamax (NF)] 70 mg PO WEEKLY 12/04/17 [History Confirmed 08/11] Budesonide/Formote 160/4.5(NF) [Symbicort 160/4.5 (NF)] 2 puff INH BID 12/04/17 [History Confirmed 12/04/17] Diphenhydram/PE/Dm/Acetamin/GG [Mucinex Fast-Max Day Time] 5 ml PO DAILY PRN 08/11 [History Confirmed 12/04/17] Gabapentin CAP(*) [Neurontin 300 CAP(*)] 300 mg PO TID 12/04/17 [History Confirmed 12/04/17] Lisinopril TAB* [Prinivil TAB*] 10 mg PO DAILY 12/04/17 [History Confirmed 12/04] Omeprazole CAP* [Prilosec CAP* 20 MG] 20 mg PO DAILY 12/04/17 [History Confirmed 12/04/17] Potassium Chlor TAB* [Klor Con ER TAB*] 20 meq PO EVERY OTHER DAY 12/04/17 [ History Confirmed 12/04/17] amLODIPine TAB* [Norvasc 5 mg TAB*] 2.5 mg PO DAILY 12/04/17 [History Confirmed 12/04/17] predniSONE TAB* [Deltasone TAB*] 10 mg PO DAILY 12/04/17 [History Confirmed 08/11] PMH/Surg Hx/FS Hx/Imm Hx Endocrine/Hematology History: 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 Denies: Hx Anticoagulant Therapy, Hx Blood Disorders, Hx Blood Transfusions, Hx Bone Marrow Disease, Hx Diabetes, Hx Systemic Lupus Erythematosus, Hx Sickle Cell Disease, Hx Thyroid Disease, Hx Anemia, Hx Unexplained Bleeding Cardiovascular History: Reports: Hx Hypertension Denies: Hx Aneurysm, Hx Angina, Hx Angioplasty, Hx Auto Implanted Cardiovert Defib, Hx Cardiac Arrest, Hx Cardiomegaly, Hx Congenital Heart Disease, Hx Congestive Heart Failure, Hx Coronary Artery Disease, Hx Embolism, Hx Hypercholesterolemia, Hx Hypotension, Hx Pacemaker/ICD, Hx Peripheral Vascular Disease, Hx Rheumatic Fever, Hx Syncope, Hx Valvular Heart Disease Respiratory History: Reports: Hx Asthma - USES HOME NEBULIZER AND INHAILER WHEN TRAVELING, Hx Chronic Bronchitis, Hx Chronic Obstructive Pulmonary Disease (COPD ), Hx Pneumonia Denies: Hx Cystic Fibrosis, Hx Lung Cancer, Hx Pleural Effusion, Hx Pulmonary Edema, Hx Pulmonary Embolism, Hx Seasonal Allergies, Hx Sleep Apnea GI History: Reports: Hx Hiatal Hernia - Currently has one for 8+years Denies: Hx Cirrhosis, Hx Crohn's Disease, Hx Diverticulosis, Hx Gall Bladder Disease, Hx Gastroesophageal Reflux Disease, Hx Gastrointestinal Bleed, Hx Irritable Bowel, Hx Jaundice, Hx Obstructive Bowel, Hx Ileostomy, Hx Pyloric Stenosis, Hx Ulcer, Other GI Disorders History: Denies: Hx Renal Disease Musculoskeletal History: Reports: Hx Back Problems Denies: Hx Arthritis, Hx Rheumatoid Arthritis, Hx Bursitis, Hx Congenital Bone Abnormalities, Hx Fibromyalgia, Hx Gout, Hx Orthopedic Injury, Hx Osteoporosis, Hx Scoliosis, Hx Tendonitis, Other Musculoskeletal History Sensory History: Reports: Hx Cataracts - since 2012, Hx Contacts or Glasses Denies: Hx Eye Injury, Hx Eye Prosthesis, Hx Glaucoma, Hx Legally Blind, Hx Macular Degeneration, Hx Vision Problem, Hx Deafness, Hx Hearing Aid, Hx Hearing Problem, Other Sensory Impairments Opthamlomology History: Reports: Hx Cataracts - since 2012, Hx Contacts or Glasses Denies: Hx Eye Injury, Hx Eye Prosthesis, Hx Glaucoma, Hx Legally Blind, Hx Macular Degeneration, Hx Vision Problem, Other Sensory Impairments Neurological History: Reports: 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 Laminectomy 2005. Cataract removal. Cholecysectomy, tonsillectomy. several basal cell skin growths removed Hx Anesthesia Reactions: No - Immunization History Date of Tetanus Vaccine: Unk Date of Influenza Vaccine: Fall 2011 Infectious Disease History: Denies: Hx Hepatitis, Hx Human Immunodeficiency Virus (HIV), Hx of Known/ Suspected MRSA, Hx Shingles, Hx Tuberculosis - Family History Known Family History: Positive: Other - None -- both parents in - Social History Alcohol Use: Rare Hx Substance Use: No Substance Use Type: Reports: None Hx Tobacco Use: No Smoking Status (MU): Never Smoked Tobacco Review of Systems Negative: Other - tongue swelling, lip swelling, difficulty swalowing Negative: Palpitations, Chest Pain Negative: Shortness Of Breath Negative: Nausea Negative: Other - pruritus All Other Systems Reviewed And Are Negative: Yes Physical Exam - Summary Physical Exam Summary: VITAL SIGNS: Reviewed. GENERAL: Patient is a well-developed and nourished female who is lying comfortable in the stretcher. Patient is not in any acute respiratory distress. HEAD AND FACE: No signs of trauma. No ecchymosis, hematomas or skull depressions. No sinus tenderness. EYES: PERRLA, EOMI x 2, No injected conjunctiva, no nystagmus. EARS: Hearing grossly intact. Ear canals and tympanic membranes are within normal limits. MOUTH: Oropharynx within normal limits. She does not have any swelling of the tongue, lip swelling, or difficulty swallowing. NECK: Supple, trachea is midline, no adenopathy, no JVD, no carotid bruit, no c- spine tenderness, neck with full ROM. CHEST: Symmetric, no tenderness at palpation LUNGS: She is wheezing. She has crackles in both bases of the lungs. CVS: Regular rate and rhythm, S1 and S2 present, no murmurs or gallops appreciated. ABDOMEN: Soft, non-tender. No signs of distention. No rebound no guarding, and no masses palpated. Bowel sounds are normal. EXTREMITIES: FROM in all major joints, no edema, no cyanosis or clubbing. NEURO: Alert and oriented x 3. No acute neurological deficits. Speech is normal and follows commands. SKIN: Dry and warm Triage Information Reviewed: Yes Vital Signs Reviewed: Yes Diagnostics - Laboratory Result Diagrams: 12/04/17 16:15 12/04/17 15:42 Lab Statement: Any lab studies that have been ordered have been reviewed, and results considered in the medical decision making process. - Radiology CXR Xray Interpretation: No Acute Changes - IMPRESSION: Stigmata of obstructive lung disease. No acute pulmonary or cardiac process evident. Dr. Hood has reviewed this report. Radiology Interpretation Completed By: Radiologist - EKG 15:45 Cardiac Rate: NL EKG Rhythm: Sinus Rhythm - at 88 BPM Ectopy: PVCs EKG Interpretation: No ST elevations. Re-Evaluation - Re-Evaluation First Eval Re-Evaluation Time: 17:26 Comment: Patient will be admitted to Dr. Boyd Complex Multi-Symp Course/Dx Assessment/Plan: The patient is a 77 year old female who was brought in by ambulance after she ate sour kraut prior to one hour prior to arrival and all of a sudden I felt fluttery and funny. The patient is not able to elaborate her symptoms beyond this. The patient denies chest pain, shortness of breath, nausea, palpitations, tongue swelling, feeling of throat swelling, lip swelling , difficulty swallowing, and pruritus. Test results show WBC 12.5, glucose 150, and troponin 0.06. CXR shows Stigmata of obstructive lung disease. No acute pulmonary or cardiac process evident. In the ED course, the patient was given DuoNeb and SoluMedrol because the patient as wheezing. The patient was given aspirin for the increased troponin. At this point, I discussed the case with Dr. Boyd to admit the patient for increased troponin, rule out acute coronary syndrome. ADDITIONAL DIAGNOSIS: increased troponin, rule out acute coronary syndrome. - Diagnoses Provider Diagnoses: CHF exacerbation - Physician Notifications Discussed Care Of Patient With: Saul Boyd Time Discussed With Above Provider: 17:26 Instructed by Provider To: Admit As Inpatient Discharge - Sign-Out/Discharge Documenting (check all that apply): Discharge - The patient is [place] [facility] [place] - Discharge Plan Condition: Stable Disposition: ADMITTED TO [facility] documentation as recorded by the Misti robins Thomas accurately reflects the service I personally performed and the decisions made by Erwin hernandez Walter, MD.
[2017-12-05] MEDS ORDERED: Piperacillin/Tazobactam 13.5 GM IV 24 hour continuous infusion IVPB SCH ×2 (20:00)
--- NOTE | 2017-12-06 01:54 | DS ---
CC: Dr. Faustino Rhodes * DISCHARGE SUMMARY: DATE OF ADMISSION: 12/04/17 DATE OF DISCHARGE: 12/05/17 PRIMARY CARE PROVIDER: Faustino Rhodes MD. ATTENDING PHYSICIAN: Saul Boyd MD. MY ATTENDING FOR TODAY: Luisa Galicia DO.* (DICTATED BY MARY ELISE NP) HOSPITAL COURSE: This is a pleasant 77-year-old lady who presented to the emergency department with a complaint of sudden onset of shortness of breath. The patient stated she had been eating a ribbon sandwich and had some sauerkraut on her sandwich. She started to cough after eating that. The symptoms resolved and she went back a few hours later to finish her sandwich and then had the same reaction again. The patient came to the emergency department for evaluation. She has baseline asthma and COPD, Churg-Dave vasculitis, neuropathy, hypertension, osteoporosis, chronic steroid therapy, and chronic respiratory insufficiency. The patient was given nebulizer treatments in the emergency department. She did not appear to have any increased sputum production. She had some, very typical for her, white frothy sputum only; it was not thick or viscous or changed in color; however, the patient still had some shortness of breath that was below her baseline, remaining on her oxygen. The patient was admitted for observation for acute asthma exacerbation. Again, the patient was treated with nebulizers and loading dose of prednisone. It was determined also, through urinalysis, that she did have some urinary tract infection. Her culture grew out Klebsiella Pneumoniae. She received one dose of Zosyn on the floor. We confirmed with pharmacy, although we do not have susceptibilities, she would be okay to take Levaquin based on resistance profiles and the areas that should be covered for the next 3 days. DISCHARGE DIAGNOSES: 1. Acute asthma exacerbation. 2. History of chronic obstructive pulmonary disease. 3. Hypertension. 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 6. Osteoporosis. DISCHARGE MEDICATIONS: 1. Alendronate 70 mg p.o. weekly. 2. Mucinex 5 mL daily. 3. Prednisone 50 mg daily for 5 days, then reduce to 10 mg daily thereafter. 4. K-Chlor 20 mEq every other day. 5. Symbicort 160/4.5, two puffs inhaled b.i.d. 6. Amlodipine 2.5 mg daily. 7. Lisinopril 10 mg daily. 8. Gabapentin 300 mg 3 times a day. 9. Albuterol inhaler 2 puffs q.4 hours as needed for shortness of breath. 10. Prilosec 20 mg daily. 11. Levaquin 500 mg daily for 3 days. The patient was stabilized and discharged in stable condition. All questions were answered. The patient stated her understanding of her discharge instructions and medications for home. New medications were sent to her pharmacy at [facility]. PHYSICAL EXAM ON THE DAY OF DISCHARGE: Vital Signs: Blood pressure 117/57, temperature 98.0, heart rate 88, saturating at 97% on 2 L nasal cannula, with respiratory rate of 18. HEENT: The patient is atraumatic, normocephalic, PERRLA, with nonicteric sclera. NECK: Supple, nontender. No JVD noted. No thyromegaly appreciated. No carotid bruits auscultated. She has poor dentition. Moist oral mucosa. Cardiovascular: S1, S2 present. Rate and rhythm are regular. No murmurs, gallops or rubs noted. Lungs are clear at the apices bilaterally, with no wheezing, rhonchi or rales. She is severely diminished at the bases at her baseline. Abdomen: Soft, nontender, nondistended. Positive bowel sounds all 4 quadrants. No organomegaly noted. Musculoskeletal: There is no clubbing, no cyanosis, and no edema. She has +2 distal pulses palpable. Gross motor and sensation are intact. She has steady gait. Neurologic: Grossly intact, with no focal deficits. Psychiatric: She is cooperative and appropriate. DISCHARGE INSTRUCTIONS/FOLLOWUP: Again, the patient was discharged in stable condition under the care of her daughter. Case management is following her case. She states that she does not have any need for VNS services at home. She should follow up with Dr. Faustino Rhodes, her primary care physician, in the next 1 to 2 weeks. She was also instructed to return to the emergency department if she experiences any additional shortness of breath that she cannot control at home with her usual medications. MARY ELISE, [place] [id number]/[facility] #: [id number] AMX
[2017-12-06] MEDS ORDERED: Potassium Chlor TAB* 20 MEQ TAB.ER PO SCH (09:00)
== END 2017-12-05 18:17 | disposition home or self-care (01) ==
LOC: ED 15:20 → MEDTELE 18:29
PROVIDERS: ADMIT Internal Medicine; ATTEND Internal Medicine
DX: J45.901 Unspecified asthma with (acute) exacerbation (principal); J44.9 Chronic obstructive pulmonary disease, unspecified; I10 Essential (primary) hypertension; M30.1 Polyarteritis with lung involvement [Churg-Strauss]; G62.9 Polyneuropathy, unspecified; M81.0 Age-related osteoporosis without current pathological fracture; I50.9 Heart failure, unspecified
CPT/HCPCS: 36415; 71046; 80048; 80053; 81003; 81015; 83605; 83735; 83880; 84484; 85025; 86140; 87040; 87077; 87086; 87186; 93005; 94640; 94760; 96374; 99284; A9270-GY; G0378; J1644; J2543; J2930; J7512

== ENCOUNTER 2018-03-14 17:28 | Emergency (ER) | payer MEDICARE ==
--- NOTE | 2018-03-14 17:49 | ED ---
Respiratory - HPI Summary HPI Summary: This is shimon Urbina documenting for attending Alcon Hood MD. Pt is a 77 y/o female BIBA who presents to [facility] c/o COPD exacerbation. She woke up this morning with the cough and SOB, which started to worsen. She did a few at home treatments, which did not improve her symptoms. Pt is on 2 L of oxygen at home, and was given 4 L by EMS. Pt was given 2 Duoneb treatments by EMS, which significantly improved her symptoms. She denies any CP, fever, abdominal pain, or N/V/D. PMHx asthma, pneumonia, and bronchitis. - History of Current Complaint Stated Complaint: DIFFICULTY BREATHING Hx Obtained From: Patient Onset/Duration: Gradual Onset, Lasting Hours - This morning, Still Present Current Severity: None Pain Intensity: 0 Character: Dyspnea at Rest Sputum Amount: Scant Alleviating Factor(s): Neb. 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 Denies: Hx Anticoagulant Therapy, Hx Blood Disorders, Hx Blood Transfusions, Hx Bone Marrow Disease, Hx Diabetes, Hx Systemic Lupus Erythematosus, Hx Sickle Cell Disease, Hx Thyroid Disease, Hx Anemia, Hx Unexplained Bleeding Cardiovascular History: Reports: Hx Hypertension Denies: Hx Aneurysm, Hx Angina, Hx Angioplasty, Hx Auto Implanted Cardiovert Defib, Hx Cardiac Arrest, Hx Cardiomegaly, Hx Congenital Heart Disease, Hx Congestive Heart Failure, Hx Coronary Artery Disease, Hx Embolism, Hx Hypercholesterolemia, Hx Hypotension, Hx Pacemaker/ICD, Hx Peripheral Vascular Disease, Hx Rheumatic Fever, Hx Syncope, Hx Valvular Heart Disease Respiratory History: Reports: Hx Asthma - USES HOME NEBULIZER AND INHAILER WHEN TRAVELING, Hx Chronic Bronchitis, Hx Chronic Obstructive Pulmonary Disease (COPD ), Hx Pneumonia Denies: Hx Cystic Fibrosis, Hx Lung Cancer, Hx Pleural Effusion, Hx Pulmonary Edema, Hx Pulmonary Embolism, Hx Seasonal Allergies, Hx Sleep Apnea GI History: Reports: Hx Hiatal Hernia - Currently has one for 8+years Denies: Hx Cirrhosis, Hx Crohn's Disease, Hx Diverticulosis, Hx Gall Bladder Disease, Hx Gastroesophageal Reflux Disease, Hx Gastrointestinal Bleed, Hx Irritable Bowel, Hx Jaundice, Hx Obstructive Bowel, Hx Ileostomy, Hx Pyloric Stenosis, Hx Ulcer, Other GI Disorders History: Denies: Hx Renal Disease Musculoskeletal History: Reports: Hx Back Problems Denies: Hx Arthritis, Hx Rheumatoid Arthritis, Hx Bursitis, Hx Congenital Bone Abnormalities, Hx Fibromyalgia, Hx Gout, Hx Orthopedic Injury, Hx Osteoporosis, Hx Scoliosis, Hx Tendonitis, Other Musculoskeletal History Sensory History: Reports: Hx Cataracts - since 2012, Hx Contacts or Glasses Denies: Hx Eye Injury, Hx Eye Prosthesis, Hx Glaucoma, Hx Legally Blind, Hx Macular Degeneration, Hx Vision Problem, Hx Deafness, Hx Hearing Aid, Hx Hearing Problem, Other Sensory Impairments Opthamlomology History: Reports: Hx Cataracts - since 2012, Hx Contacts or Glasses Denies: Hx Eye Injury, Hx Eye Prosthesis, Hx Glaucoma, Hx Legally Blind, Hx Macular Degeneration, Hx Vision Problem, Other Sensory Impairments Neurological History: Reports: 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 Laminectomy 2005. Cataract removal. Cholecysectomy, tonsillectomy. several basal cell skin growths removed Hx Anesthesia Reactions: No - Immunization History Date of Tetanus Vaccine: Unk Date of Influenza Vaccine: Fall 2011 Infectious Disease History: No Infectious Disease History: Denies: Hx Hepatitis, Hx Human Immunodeficiency Virus (HIV), Hx of Known/ Suspected MRSA, Hx Shingles, Hx Tuberculosis, Traveled Outside the [place] in Last 30 Days - Family History Known Family History: Positive: Other - Stroke - Social History Alcohol Use: Rare Hx Substance Use: No Substance Use Type: Reports: None Hx Tobacco Use: No Smoking Status (MU): Never Smoked Tobacco Review of Systems Negative: Fever Negative: Chest Pain Positive: Shortness Of Breath, Cough Negative: Abdominal Pain, Vomiting, Diarrhea, Nausea All Other Systems Reviewed And Are Negative: Yes Physical Exam - Summary Physical Exam Summary: VITAL SIGNS: Reviewed. GENERAL: Patient is an elderly FEMALE who is lying comfortable in the stretcher. Patient is not in any acute respiratory distress. HEAD AND FACE: No signs of trauma. No ecchymosis, hematomas or skull depressions. No sinus tenderness. EYES: PERRLA, EOMI x 2, No injected conjunctiva, no nystagmus. EARS: Hearing grossly intact. Ear canals and tympanic membranes are within normal limits. MOUTH: Oropharynx within normal limits. NECK: Supple, trachea is midline, no adenopathy, no JVD, no carotid bruit, no c- spine tenderness, neck with full ROM. CHEST: Symmetric, no tenderness at palpation LUNGS: Course breath sounds bilaterally. No wheezing or crackles. 2 L of oxygen. CVS: Regular rate and rhythm, S1 and S2 present, no murmurs or gallops appreciated. ABDOMEN: Soft, non-tender. No signs of distention. No rebound no guarding, and no masses palpated. Bowel sounds are normal. EXTREMITIES: FROM in all major joints, no edema, no cyanosis or clubbing. NEURO: Alert and oriented x 3. No acute neurological deficits. Speech is normal and follows commands. SKIN: Dry and warm Triage Information Reviewed: Yes Vital Signs On Initial Exam: Initial Vitals Temp Pulse Resp BP Pulse Ox 98 F 90 18 117/77 97 03/14/18 17:33 03/14/18 17:33 03/14/18 17:33 03/14/18 17:33 03/14/18 17:33 Vital Signs Reviewed: Yes Diagnostics - Vital Signs Vital Signs Temp Pulse Resp BP Pulse Ox 03/14/18 17:38 90 21 120/72 96 03/14/18 17:37 25 03/14/18 17:33 98 F 90 18 117/77 97 - Laboratory Result Diagrams: 03/14/18 17:55 03/14/18 17:55 Lab Statement: Any lab studies that have been ordered have been reviewed, and results considered in the medical decision making process. - Radiology CXR Radiology Interpretation Completed By: Radiologist - 17:32 Chronic partial atelectasis of the RIGHT middle lobe. Chronic obstructive pulmonary disease. Potential pulmonary arterial hypertension. No compelling evidence for pneumonia. ED physician reviewed radiology report. - EKG 17:40 Cardiac Rate: NL - 88 bpm EKG Rhythm: Sinus Rhythm ST Segment: Normal EKG Interpretation: Q waves in 3 EKG Comparison: No Significant Change - Similar to EKG on 12/07/17 Re-Evaluation - Re-Evaluation First Eval Re-Evaluation Time: 19:22 Change: Improved Comment: Pt is feeling better. No wheezing upon PE. Disposition - Course Assessment/Plan: This patient is a 77 -year-old female who presents to the emergency room department via ambulance with chief complaint of having shortness of breath and exacerbation of her COPD. The patient was given 2 duo nebs before the patient came into the emergency department and her symptoms resolved. The patient reports that she is having this productive cough with yellowish phlegm. Physical shows an slight anemia, reviewing a 30 creatinine 1.14 glucose of 127 and CRP of 17.5. Chest x-ray impression: Chronic partial atelectasis in the right middle lobe. Chronic obstructive pulmonary disease. Potential pulmonary artery hypertension. Since the patient has shortness of breath, productive cough, and increased CRP I will give the patient azithromycin and discharge the patient home with follow-up with PCP. The patient is given a medically stable alert and oriented 3. And multiple examined the symptoms have not returned the lungs are clear to auscultation bilaterally. The patient is hemoglobin and crit stable alert and oriented 3. - Diagnoses Provider Diagnoses: COPD exacerbation Discharge - Sign-Out/Discharge Documenting (check all that apply): Patient Departure - Discharge - Discharge Plan Condition: Stable Disposition: HOME Patient Education Materials: COPD (Chronic Obstructive Pulmonary Disease) (ED) Referrals: Faustino Rhodes MD [Primary Care Provider] - 3 Days Additional Instructions: RETURN TO THE ED FOR ANY WORSENING OR NEW SYMPTOMS.
[2018-03-14 18:12] LABS: ABS Basophils 0.1 10^3/ul (0-0.2); ABS Eosinophils 0.8 10^3/ul (0-0.6); ABS Lymphocytes 2.6 10^3/ul (1.0-4.8); ABS Monocytes 0.9 10^3/ul (0-0.8); ABS Neutrophils 4.6 10^3/ul (1.5-7.7); ABS Nucleated RBC 0 10^3/ul; Eosinophil % 8.8 % (0-6); Hematocrit 34 % (35-47); Hemoglobin 11.1 g/dl (12.0-16.0); Mean Corpuscular HGB Conc 33 g/dl (31-36); Mean Corpuscular Hemoglobin 29 pg (27-31); Mean Corpuscular Volume 88 fL (80-97); Mean Platelet Volume 8.9 um3 (7.4-10.4); Nucleated Red Blood Cells % 0; Platelet Count 271 10^3/ul (150-450); Red Blood Count 3.83 10^6/ul (4.00-5.40); Red Cell Distribution Width 14 % (10.5-15)
[2018-03-14] MEDS ORDERED: Azithromycin IV* 500 MG ADVAN VIAL/BAG IVPB ONE (19:21)
--- NOTE | 2018-03-14 19:35 | RAD ---
INDICATION: Shortness of breath. Chronic obstructive pulmonary disease. COMPARISON: December 04, 2017 TECHNIQUE: Dual energy PA and routine lateral views of the chest were obtained. REPORT: Elevated lung volumes and both diffuse mild prominence of the interstitial markings and patchy rarefaction of the mid to upper lung zone interstitial markings. Unchanged partial atelectasis of the RIGHT middle lobe based on correlation with the May 12, 2017 CT. No focal pulmonary lesion, compelling alveolar consolidation concerning for pneumonia, pleural effusion, pneumothorax. Upper normal heart size. Prominent central pulmonary vasculature with peripheral attenuation. Unremarkable mediastinal contours. No fracture or suspicious thoracic osseous lesion evident. IMPRESSION: #. Chronic partial atelectasis of the RIGHT middle lobe. #. Chronic obstructive pulmonary disease. Potential pulmonary arterial hypertension. #. No compelling evidence for pneumonia.
[2018-03-14 22:13] VITALS: BP 128/65
== END 2018-03-14 22:11 | disposition home or self-care (01) ==
LOC: ED 17:28
DX: J44.1 Chronic obstructive pulmonary disease with (acute) exacerbation (principal); Z88.8 Allergy status to other drugs, medicaments and biological substances
CPT/HCPCS: 36415; 71046; 80053; 83605; 83880; 84484; 85025; 86140; 87040; 93005; 96374; 99283; J0456

== ENCOUNTER 2018-05-25 09:42 | Emergency (ER) | payer MEDICARE ==
[2018-05-25] MEDS ORDERED: Ibuprofen TAB* 600 MG ONE (12:35)
[2018-05-25] MEDS ORDERED: Ibuprofen TAB* 600 MG PO ONE (12:38)
--- NOTE | 2018-05-25 12:56 | ED ---
Upper Extremity Pain - HPI Summary HPI Summary: Rt UE pain since peeling potatoes, apples, etc starting Friday and again on Friday. Pain in distal bicep, elbow and forearm started Friday - better w/ ibuprofen which she tried this morning but starting to wear off. Denies numbness /tingling/weakness. Better when she holds arm close to body - worse w/ moving UE. No other injuries and denies chest pain, fatigue, SOB, sweating, jaw pain, nausea. - History of Current Complaint Chief Complaint: EDExtremityUpper Stated Complaint: RT ARM DISCOMFORT Time Seen by Provider: 05/25/18 11:34 Hx Obtained From: Patient - Allergies/Home Medications Allergies/Adverse Reactions: Allergies Allergy/AdvReac Type Severity Reaction Status Date / Time montelukast [From [facility]] Allergy See Comment Verified 05/25/18 09:47 PMH/Surg Hx/FS Hx/Imm Hx Previously Healthy: Yes Endocrine/Hematology History: 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 Denies: Hx Anticoagulant Therapy, Hx Blood Disorders, Hx Blood Transfusions, Hx Bone Marrow Disease, Hx Diabetes, Hx Systemic Lupus Erythematosus, Hx Sickle Cell Disease, Hx Thyroid Disease, Hx Anemia, Hx Unexplained Bleeding Cardiovascular History: Reports: Hx Hypertension Denies: Hx Aneurysm, Hx Angina, Hx Angioplasty, Hx Auto Implanted Cardiovert Defib, Hx Cardiac Arrest, Hx Cardiomegaly, Hx Congenital Heart Disease, Hx Congestive Heart Failure, Hx Coronary Artery Disease, Hx Embolism, Hx Hypercholesterolemia, Hx Hypotension, Hx Pacemaker/ICD, Hx Peripheral Vascular Disease, Hx Rheumatic Fever, Hx Syncope, Hx Valvular Heart Disease Respiratory History: Reports: Hx Asthma - USES HOME NEBULIZER AND INHAILER WHEN TRAVELING, Hx Chronic Bronchitis, Hx Chronic Obstructive Pulmonary Disease (COPD ), Hx Pneumonia Denies: Hx Cystic Fibrosis, Hx Lung Cancer, Hx Pleural Effusion, Hx Pulmonary Edema, Hx Pulmonary Embolism, Hx Seasonal Allergies, Hx Sleep Apnea GI History: Reports: Hx Hiatal Hernia - Currently has one for 8+years Denies: Hx Cirrhosis, Hx Crohn's Disease, Hx Diverticulosis, Hx Gall Bladder Disease, Hx Gastroesophageal Reflux Disease, Hx Gastrointestinal Bleed, Hx Irritable Bowel, Hx Jaundice, Hx Obstructive Bowel, Hx Ileostomy, Hx Pyloric Stenosis, Hx Ulcer, Other GI Disorders History: Denies: Hx Renal Disease Musculoskeletal History: Reports: Hx Back Problems Denies: Hx Arthritis, Hx Rheumatoid Arthritis, Hx Bursitis, Hx Congenital Bone Abnormalities, Hx Fibromyalgia, Hx Gout, Hx Orthopedic Injury, Hx Osteoporosis, Hx Scoliosis, Hx Tendonitis, Other Musculoskeletal History Sensory History: Reports: Hx Cataracts - since 2012, Hx Contacts or Glasses Denies: Hx Eye Injury, Hx Eye Prosthesis, Hx Glaucoma, Hx Legally Blind, Hx Macular Degeneration, Hx Vision Problem, Hx Deafness, Hx Hearing Aid, Hx Hearing Problem, Other Sensory Impairments Opthamlomology History: Reports: Hx Cataracts - since 2012, Hx Contacts or Glasses Denies: Hx Eye Injury, Hx Eye Prosthesis, Hx Glaucoma, Hx Legally Blind, Hx Macular Degeneration, Hx Vision Problem, Other Sensory Impairments Neurological History: Reports: 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 Laminectomy 2005. Cataract removal. Cholecysectomy, tonsillectomy. several basal cell skin growths removed Hx Anesthesia Reactions: No - Immunization History Date of Tetanus Vaccine: Unk Date of Influenza Vaccine: Fall 2011 Infectious Disease History: No Infectious Disease History: Denies: Hx Hepatitis, Hx Human Immunodeficiency Virus (HIV), Hx of Known/ Suspected MRSA, Hx Shingles, Hx Tuberculosis, Traveled Outside the [place] in Last 30 Days - Family History Known Family History: Positive: Other - Stroke - Social History Occupation: Retired Alcohol Use: Rare Hx Substance Use: No Substance Use Type: Reports: None Hx Tobacco Use: No Smoking Status (MU): Never Smoked Tobacco Review of Systems Constitutional: Negative Negative: Fever, Chills, Fatigue Negative: Chest Pain Negative: Shortness Of Breath Positive: no symptoms reported Positive: Arthralgia, Decreased ROM Skin: Negative Neurological: Negative Psychological: Normal All Other Systems Reviewed And Are Negative: Yes Physical Exam Triage Information Reviewed: Yes Vital Signs On Initial Exam: Initial Vitals Temp Pulse Resp BP Pulse Ox 97.5 F 98 20 129/66 97 05/25/18 09:43 05/25/18 09:43 05/25/18 09:43 05/25/18 09:43 05/25/18 09:43 Vital Signs Reviewed: Yes Appearance: Positive: Well-Appearing, Well-Nourished, Pain Distress - mild to none at rest - worse w/ movement, Obese Skin: Positive: Warm, Skin Color Reflects Adequate Perfusion, Dry - no erytema, no ecchymosis over affected area ENT: Positive: Hearing grossly normal Neck: Positive: Supple, Nontender Respiratory/Lung Sounds: Positive: Breath Sounds Present Cardiovascular: Positive: Pulses are Symmetrical in both Upper and Lower Extremities - no edema of UE's Musculoskeletal: Positive: Limited @ - Rt UE - limited d/t pain, Pain @ - Rt forearm, bicep and shoulder muscles Neurological: Positive: Normal, Sensory/Motor Intact, Alert, Oriented to Person Place, Time, CN Intact II-III Psychiatric: Positive: Normal Diagnostics - Vital Signs Vital Signs Temp Pulse Resp BP Pulse Ox 05/25/18 09:43 97.5 F 98 20 129/66 97 - Laboratory Lab Statement: Any lab studies that have been ordered have been reviewed, and results considered in the medical decision making process. Course/Dx - Diagnoses Provider Diagnoses: Tendonitis, Overuse injury Discharge - Sign-Out/Discharge Documenting (check all that apply): Patient Departure - Discharge Plan Condition: Stable Disposition: HOME Patient Education Materials: Tendinitis (ED) Referrals: Faustino Rhodes MD [Primary Care Provider] - Additional Instructions: Rest, ice alternating with heat and gentle stretches You may also try ibuprofen with food alternating with acetaminophen as needed for pain Avoid lifting, gripping, carrying, repetitive motions, etc Follow-up with PCP at your regularly scheduled appointment but call today to notify office of new condition. *If worse in the meantime, return to ED - Billing Disposition and Condition Condition: STABLE Disposition: Home
[2018-05-25 13:27] VITALS: BP 125/57
== END 2018-05-25 13:25 | disposition home or self-care (01) ==
LOC: ED 09:42
DX: S49.91XA Unspecified injury of right shoulder and upper arm, initial encounter (principal); S59.901A Unspecified injury of right elbow, initial encounter; S59.911A Unspecified injury of right forearm, initial encounter; M77.9 Enthesopathy, unspecified; X50.3XXA Overexertion from repetitive movements, initial encounter; Y93.G1 Activity, food preparation and clean up; Y92.9 Unspecified place or not applicable; J45.909 Unspecified asthma, uncomplicated; Z88.8 Allergy status to other drugs, medicaments and biological substances
CPT/HCPCS: 99281; A9270-GY

== ENCOUNTER 2018-10-03 13:35 | Emergency (ER) | payer MEDICARE ==
[2018-10-03] MEDS ORDERED: methylPREDNISolone 125 MG* 2 ML VIAL IV ONE (13:46)
--- NOTE | 2018-10-03 13:51 | ED ---
Shortness of Breath - HPI Summary HPI Summary: Patient is a 78 y/o F presenting to ED via ambulance with complaints of SOB for the past couple of days. She notes cough productive of phlegm and that she has been taking her nebulizer more often than normally. She is on 2 L o2 at home . 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 Patient denies fevers, chest pain, N/V/D and constipation. On triage, pain is denied, nothing is noted to aggravate/alleviate Sx. Home medications and allergies are reviewed. - History of Current Complaint Chief Complaint: EDShortnessOfBreath Time Seen by Provider: 10/03/18 13:46 Hx Obtained From: Patient Onset/Duration: Lasting Days - a couple, Still Present Timing: Constant Current Severity: None Aggrevating Factors: Nothing Alleviating Factors: Nothing Associated Signs & Symptoms: Cough (Productive) - Allergy/Home Medications Allergies/Adverse Reactions: Allergies Allergy/AdvReac Type Severity Reaction Status Date / Time montelukast [From [facility]] Allergy See Comment Verified 05/25/18 09:47 Home Medications: Home Medications Amitriptyline TAB* [Elavil TAB*] 25 mg PO BEDTIME 10/03/18 [History Confirmed ] Hydrochlorothiazide TAB* [Hydrodiuril TAB*] 12.5 mg PO DAILY 10/03/18 [History Confirmed 10/03/18] PMH/Surg Hx/FS Hx/Imm Hx Endocrine/Hematology History: 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 Denies: Hx Anticoagulant Therapy, Hx Blood Disorders, Hx Blood Transfusions, Hx Bone Marrow Disease, Hx Diabetes, Hx Systemic Lupus Erythematosus, Hx Sickle Cell Disease, Hx Thyroid Disease, Hx Anemia, Hx Unexplained Bleeding Cardiovascular History: Reports: Hx Hypertension Denies: Hx Aneurysm, Hx Angina, Hx Angioplasty, Hx Auto Implanted Cardiovert Defib, Hx Cardiac Arrest, Hx Cardiomegaly, Hx Congenital Heart Disease, Hx Congestive Heart Failure, Hx Coronary Artery Disease, Hx Embolism, Hx Hypercholesterolemia, Hx Hypotension, Hx Pacemaker/ICD, Hx Peripheral Vascular Disease, Hx Rheumatic Fever, Hx Syncope, Hx Valvular Heart Disease Respiratory History: Reports: Hx Asthma - USES HOME NEBULIZER AND INHAILER WHEN TRAVELING, Hx Chronic Bronchitis, Hx Chronic Obstructive Pulmonary Disease (COPD ), Hx Pneumonia Denies: Hx Cystic Fibrosis, Hx Lung Cancer, Hx Pleural Effusion, Hx Pulmonary Edema, Hx Pulmonary Embolism, Hx Seasonal Allergies, Hx Sleep Apnea GI History: Reports: Hx Hiatal Hernia - Currently has one for 8+years Denies: Hx Cirrhosis, Hx Crohn's Disease, Hx Diverticulosis, Hx Gall Bladder Disease, Hx Gastroesophageal Reflux Disease, Hx Gastrointestinal Bleed, Hx Irritable Bowel, Hx Jaundice, Hx Obstructive Bowel, Hx Ileostomy, Hx Pyloric Stenosis, Hx Ulcer, Other GI Disorders History: Denies: Hx Renal Disease Musculoskeletal History: Reports: Hx Back Problems Denies: Hx Arthritis, Hx Rheumatoid Arthritis, Hx Bursitis, Hx Congenital Bone Abnormalities, Hx Fibromyalgia, Hx Gout, Hx Orthopedic Injury, Hx Osteoporosis, Hx Scoliosis, Hx Tendonitis, Other Musculoskeletal History Sensory History: Reports: Hx Cataracts - since 2012, Hx Contacts or Glasses Denies: Hx Eye Injury, Hx Eye Prosthesis, Hx Glaucoma, Hx Legally Blind, Hx Macular Degeneration, Hx Vision Problem, Hx Deafness, Hx Hearing Aid, Hx Hearing Problem, Other Sensory Impairments Opthamlomology History: Reports: Hx Cataracts - since 2012, Hx Contacts or Glasses Denies: Hx Eye Injury, Hx Eye Prosthesis, Hx Glaucoma, Hx Legally Blind, Hx Macular Degeneration, Hx Vision Problem, Other Sensory Impairments Neurological History: Reports: 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 Laminectomy 2005. Cataract removal. Cholecysectomy, tonsillectomy. several basal cell skin growths removed Hx Anesthesia Reactions: No - Immunization History Date of Tetanus Vaccine: Unk Date of Influenza Vaccine: Fall 2011 Infectious Disease History: No Infectious Disease History: Denies: Hx Hepatitis, Hx Human Immunodeficiency Virus (HIV), Hx of Known/ Suspected MRSA, Hx Shingles, Hx Tuberculosis, Traveled Outside the [place] in Last 30 Days - Family History Known Family History: Positive: Other - Stroke - Social History Alcohol Use: Rare Hx Substance Use: No Substance Use Type: Reports: None Hx Tobacco Use: No Smoking Status (MU): Never Smoked Tobacco Review of Systems Negative: Fever Negative: Chest Pain Positive: Shortness Of Breath, Cough - productive Gastrointestinal: Other - NEGATIVE - CONSTIPATION Negative: Vomiting, Diarrhea, Nausea All Other Systems Reviewed And Are Negative: Yes Physical Exam - Summary Physical Exam Summary: VITAL SIGNS: Reviewed. GENERAL: Patient is a well-developed and nourished female who is lying comfortable in the stretcher. Patient is not in any acute respiratory distress. HEAD AND FACE: No signs of trauma. No ecchymosis, hematomas or skull depressions. No sinus tenderness. EYES: PERRLA, EOMI x 2, No injected conjunctiva, no nystagmus. EARS: Hearing grossly intact. Ear canals and tympanic membranes are within normal limits. MOUTH: Oropharynx within normal limits. NECK: Supple, trachea is midline, no adenopathy, no JVD, no carotid bruit, no c- spine tenderness, neck with full ROM. CHEST: Symmetric, no tenderness at palpation LUNGS: Patient is in not in any acute respiratory distress and is speaking in full sentences. Crackles and wheezing bilaterally is noted. CVS: Regular rate and rhythm, S1 and S2 present, no murmurs or gallops appreciated. ABDOMEN: Soft, non-tender. No signs of distention. No rebound no guarding, and no masses palpated. Bowel sounds are normal. EXTREMITIES: FROM in all major joints, no edema, no cyanosis or clubbing. NEURO: Alert and oriented x 3. No acute neurological deficits. Speech is normal and follows commands. SKIN: Dry and warm Triage Information Reviewed: Yes Vital Signs On Initial Exam: Initial Vitals Temp Pulse Resp BP Pulse Ox 99.5 F 91 22 146/71 96 10/03/18 13:41 10/03/18 13:41 10/03/18 13:41 10/03/18 13:41 10/03/18 13:41 Vital Signs Reviewed: Yes Diagnostics - Vital Signs Vital Signs Temp Pulse Resp BP Pulse Ox 10/03/18 13:41 99.5 F 91 22 146/71 96 - Laboratory Result Diagrams: 10/03/18 13:59 10/03/18 13:59 Lab Statement: Any lab studies that have been ordered have been reviewed, and results considered in the medical decision making process. - Radiology CXR Radiology Interpretation Completed By: Radiologist Summary of Radiographic Findings: IMPRESSION: FINDINGS SUGGESTIVE OF COPD, NO EVIDENCE FOR ACUTE FINDING. THIS REPORT WAS REVIEWED BY ED PHYSICIAN. - EKG 1404 Cardiac Rate: NL - rate of 93 BPM EKG Rhythm: Sinus Rhythm Ectopy: PVCs EKG Comparison: No Significant Change - compared to 03/14/18 Summary of EKG Findings: EKG showed sinus rhythm with rate of 93 BPM, no ST elevation, occasional PVCs, no significant change compared to 03/14/18 EKG. Re-Evaluation - Re-Evaluation First Eval Re-Evaluation Time: 16:14 Course/Dx - Course Assessment/Plan: Patient is a 78 y/o F presenting to ED via ambulance with complaints of SOB for the past couple of days. She notes cough productive of phlegm and that she has been taking her nebulizer more often than normally. She is on 2 L o2 at home 17/03. 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 Patient denies fevers, chest pain, N/V/D and constipation. Blood work without any significant abnormality except for hemoglobin 11.5, glucose 145, troponin is 0.04, BNP is 106. Chest x-ray impression: FINDINGS SUGGESTIVE OF COPD, NO EVIDENCE FOR ACUTE FINDING. In the ED course the patient was given Solu-Medrol and DuoNebs however the patient is still having shortness of breath and she is a tight. Patient had three dounebs since 2:30 hours, one at her house, one in the ambulance and one in the ED. ABG shows a pH of 7.45, PCO2 43, O2 sat is 98.5. After the second DuoNeb the patient is feeling better. Reexamination of the lungs the patient is moving air well, slight wheezing still persistent. However the patient requested to be discharged home. The patients daughter is with her and she will be taking the patient home and she will stay with her for the rest of the day. I will keep the patient azithromycin since the patient has a COPD exacerbation. The patient was instructed to return to the emergency department if she develops any fever, more shortness of breath or any other symptom. The patient understands and agrees. - Diagnoses Differential Diagnosis/HQI/PQRI: Positive: Bronchitis, CHF, Chest Wall Pain, COPD Exacerbation, Pneumonia Provider Diagnoses: COPD exacerbation Discharge - Sign-Out/Discharge Documenting (check all that apply): Patient Departure - discharge Patient Received Moderate/Deep Sedation with Procedure: No - NO PROCEDURES DONE - Discharge Plan Condition: Stable Disposition: HOME Prescriptions: Azithromycin TAB* [Zithromax TAB (Z-COURTNEY) 250 mg #6 tabs] 250 mg PO DAILY #4 tab Patient Education Materials: COPD (Chronic Obstructive Pulmonary Disease) (ED) Referrals: Faustino Rhodes MD [Primary Care Provider] - 3 Days Additional Instructions: RETURN TO EMERGENCY DEPARTMENT WITH ANY NEW OR WORSENING SYMPTOMS. FOLLOW UP WITH PRIMARY CARE PHYSICIAN WITHIN THREE DAYS. - Billing Disposition and Condition Condition: STABLE Disposition: Home - Attestation Statements Document Initiated by Scribe: Yes Documenting Scribe: DARCY TALBOT Provider For Whom Scribe is Documenting (Include Credential): PEYMAN ACEVES MD Scribe Attestation: DARCY Adler scribed for PEYMAN ACEVES MD on 10/04/18 at 1314. Scribe Documentation Reviewed: Yes Provider Attestation: The documentation as recorded by the DARCY robins accurately reflects the service I personally performed and the decisions made by PEYMAN hernandez MD Status of Scribe Document: Viewed
[2018-10-03 14:27] LABS: ABS Basophils 0.1 10^3/ul (0-0.2); ABS Eosinophils 0.2 10^3/ul (0-0.6); ABS Lymphocytes 1.1 10^3/ul (1.0-4.8); ABS Monocytes 0.3 10^3/ul (0-0.8); ABS Neutrophils 8.4 10^3/ul (1.5-7.7); ABS Nucleated RBC 0 10^3/ul; Eosinophil % 1.8 %; Hematocrit 35 % (35-47); Hemoglobin 11.5 g/dl (12.0-16.0); Lymphocyte % 11.1 %; Mean Corpuscular HGB Conc 33 g/dl (31-36); Mean Corpuscular Hemoglobin 29 pg (27-31); Mean Corpuscular Volume 87 fL (80-97); Mean Platelet Volume 8.6 fL (7.4-10.4); Nucleated Red Blood Cells % 0; Platelet Count 278 10^3/ul (150-450); Red Blood Count 3.98 10^6/ul (4.00-5.40); Red Cell Distribution Width 14 % (10.5-15); White Blood Count 10.1 10^3/ul (3.5-10.8)
[2018-10-03 14:48] LABS: Albumin/Globulin Ratio 1.5 (1-3); BUN/Creatinine Ratio 26.3 (8-20); C Reactive Protein 4.01 mg/L (<8.01); Calcium 9.2 mg/dL (8.6-10.3); EGFR African American 68.5 (>60); EGFR Non-African American 56.6 (>60); Globulin 2.6 g/dL (2-4); Potassium 4.3 mmol/L (3.5-5.0); Total Bilirubin 0.5 mg/dL (0.2-1.0); Total Protein 6.6 g/dL (6.4-8.9)
[2018-10-03 14:52] LABS: CKMB ng/mL 3.5 ng/mL (0.6-6.3); Troponin I 0.04 ng/mL (<0.04)
[2018-10-03 15:19] LABS: Influenza A Molecular NEGATIVE (Negative); Influenza B Molecular NEGATIVE (Negative)
[2018-10-03] MEDS ORDERED: Albuterol/Ipratropium NEB.SOL* Albuterol 2.5 MG/Ipratropium 0.5 MG 3 ML INH ONE (15:37)
[2018-10-03] MEDS ORDERED: Azithromycin TAB* 250 MG PO ONE (16:18)
[2018-10-03 16:49] VITALS: BP 119/65
== END 2018-10-03 16:47 | disposition home or self-care (01) ==
LOC: ED 13:35
DX: J44.1 Chronic obstructive pulmonary disease with (acute) exacerbation (principal); I10 Essential (primary) hypertension
CPT/HCPCS: 36415; 71046; 80053; 82550; 82553; 82803; 83605; 83880; 84484; 85025; 86140; 87040; 93005; 96374; 99283; A9270-GY; J2930

== ENCOUNTER 2019-01-12 13:07 | Inpatient (IN) | payer MEDICARE ==
--- NOTE | 2019-01-12 13:30 | ED ---
Respiratory - HPI Summary HPI Summary: This patient is an 78 year old female presenting to [facility] with a chief complaint of SOB. The patient has a Hx of asthma/COPD and feels better after taking nebulizer treatments at home. The patient is always on 2L of home oxygen. The patient saw her PCP and was negative for pneumonia via CXR. The SOB is of a wheezing quality. - History of Current Complaint Chief Complaint: EDShortnessOfBreath Stated Complaint: GENERAL ILLNESS PER EMS Time Seen by Provider: 01/12/19 13:19 Hx Obtained From: Patient Current Severity: Mild Pain Intensity: 3 Character: Wheezing - Allergy/Home Medications Allergies/Adverse Reactions: Allergies Allergy/AdvReac Type Severity Reaction Status Date / Time montelukast [From [facility]] Allergy See Comment Verified 01/12/19 13:24 Home Medications: Home Medications Albuterol 2.5MG/3ML (0.083%)* [Ventolin 2.5 MG/3 ML NEB.JESSICA*] 2.5 mg INH Q6H PRN 01/12/19 [History Confirmed 01/12/19] Albuterol inh POWDER (NF) [Proair Respiclick] 2 puff INH Q4HR PRN 01/12/19 [ History Confirmed 01/12/19] Albuterol/Ipratropium NEB.JESSICA* [Duoneb (Albuterol 2.5 MG/Ipratropium 0.5 MG)] 1 neb INH QID PRN 01/12/19 [History Confirmed 01/12/19] Alendronate (NF) [Fosamax (NF)] 70 mg PO WEEKLY 01/12/19 [History Confirmed ] Budesonide/Formote 160/4.5(NF) [Symbicort 160/4.5 (NF)] 2 puff INH BID 01/12/19 [History Confirmed 01/12/19] Cholecalciferol TAB* [Vitamin D TAB*] 2,000 unit PO DAILY 01/12/19 [History Confirmed 01/12/19] Lisinopril TAB* [Prinivil TAB*] 10 mg PO DAILY 01/12/19 [History Confirmed 01/12] Omeprazole CAP (NF) [Prilosec CAP* 20 MG] 20 mg PO 1400 01/12/19 [History Confirmed 01/12/19] PMH/Surg Hx/FS Hx/Imm Hx Endocrine/Hematology History: 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 Denies: Hx Anticoagulant Therapy, Hx Blood Disorders, Hx Blood Transfusions, Hx Bone Marrow Disease, Hx Diabetes, Hx Systemic Lupus Erythematosus, Hx Sickle Cell Disease, Hx Thyroid Disease, Hx Anemia, Hx Unexplained Bleeding Cardiovascular History: Reports: Hx Hypertension Denies: Hx Aneurysm, Hx Angina, Hx Angioplasty, Hx Auto Implanted Cardiovert Defib, Hx Cardiac Arrest, Hx Cardiomegaly, Hx Congenital Heart Disease, Hx Congestive Heart Failure, Hx Coronary Artery Disease, Hx Embolism, Hx Hypercholesterolemia, Hx Hypotension, Hx Pacemaker/ICD, Hx Peripheral Vascular Disease, Hx Rheumatic Fever, Hx Syncope, Hx Valvular Heart Disease Respiratory History: Reports: Hx Asthma - USES HOME NEBULIZER AND INHAILER WHEN TRAVELING, Hx Chronic Bronchitis, Hx Chronic Obstructive Pulmonary Disease (COPD ), Hx Pneumonia Denies: Hx Cystic Fibrosis, Hx Lung Cancer, Hx Pleural Effusion, Hx Pulmonary Edema, Hx Pulmonary Embolism, Hx Seasonal Allergies, Hx Sleep Apnea GI History: Reports: Hx Hiatal Hernia - Currently has one for 8+years Denies: Hx Cirrhosis, Hx Crohn's Disease, Hx Diverticulosis, Hx Gall Bladder Disease, Hx Gastroesophageal Reflux Disease, Hx Gastrointestinal Bleed, Hx Irritable Bowel, Hx Jaundice, Hx Obstructive Bowel, Hx Ileostomy, Hx Pyloric Stenosis, Hx Ulcer, Other GI Disorders History: Denies: Hx Renal Disease Musculoskeletal History: Reports: Hx Back Problems Denies: Hx Arthritis, Hx Rheumatoid Arthritis, Hx Bursitis, Hx Congenital Bone Abnormalities, Hx Fibromyalgia, Hx Gout, Hx Orthopedic Injury, Hx Osteoporosis, Hx Scoliosis, Hx Tendonitis, Other Musculoskeletal History Sensory History: Reports: Hx Cataracts - since 2012, Hx Contacts or Glasses Denies: Hx Eye Injury, Hx Eye Prosthesis, Hx Glaucoma, Hx Legally Blind, Hx Macular Degeneration, Hx Vision Problem, Hx Deafness, Hx Hearing Aid, Hx Hearing Problem, Other Sensory Impairments Opthamlomology History: Reports: Hx Cataracts - since 2012, Hx Contacts or Glasses Denies: Hx Eye Injury, Hx Eye Prosthesis, Hx Glaucoma, Hx Legally Blind, Hx Macular Degeneration, Hx Vision Problem, Other Sensory Impairments Neurological History: Reports: 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 Laminectomy 2006. Cataract removal. Cholecysectomy, tonsillectomy. several basal cell skin growths removed Hx Anesthesia Reactions: No - Immunization History Date of Tetanus Vaccine: Unk Date of Influenza Vaccine: Fall 2011 Infectious Disease History: No Infectious Disease History: Denies: Hx Hepatitis, Hx Human Immunodeficiency Virus (HIV), Hx of Known/ Suspected MRSA, Hx Shingles, Hx Tuberculosis, Traveled Outside the [place] in Last 30 Days - Family History Known Family History: Positive: Other - Stroke - Social History Alcohol Use: Rare Hx Substance Use: No Substance Use Type: Reports: None Hx Tobacco Use: No Smoking Status (MU): Never Smoked Tobacco Review of Systems Negative: Fever Positive: Shortness Of Breath - Wheezing All Other Systems Reviewed And Are Negative: Yes Physical Exam - Summary Physical Exam Summary: Appearance: The patient is well-nourished in no acute distress and in no acute pain. Skin: The skin is warm and dry and skin color reflects adequate perfusion. HEENT: The head is normocephalic and atraumatic. The pupils are equal and reactive. The conjunctivae are clear and without drainage. Nares are patent and without drainage. Mouth reveals moist mucous membranes and the throat is without erythema and exudate. The external ears are intact. The ear canals are patent and without drainage. The tympanic membranes are intact. Neck: The neck is supple with full range of motion and non-tender. There are no carotid bruits. There is no neck vein distension. Respiratory: Chest is non-tender. Diffuse expiratory wheezes. Tachypnic. Cardiovascular: Heart is regular rate and rhythm. There is no murmur or rub auscultated. There is no peripheral edema and pulses are symmetrical and equal. Abdomen: The abdomen is soft and non-tender. There are normal bowel sounds heard in all four quadrants and there is no organomegaly palpated. Musculoskeletal: There is no back tenderness noted. Extremities are non-tender with full range of motion. There is good capillary refill. There is no peripheral edema or calf tenderness elicited. Neurological: Patient is alert and oriented to person, place and time. The patient has symmetrical motor strength in all four extremities. Cranial nerves are grossly intact. Deep tendon reflexes are symmetrical and equal in all four extremities. Psychiatric: The patient has an appropriate affect and does not exhibit any anxiety or depression. Triage Information Reviewed: Yes Vital Signs On Initial Exam: Initial Vitals Temp Pulse Resp BP Pulse Ox 98.5 F 110 22 163/91 97 01/12/19 13:12 01/12/19 13:12 01/12/19 13:12 01/12/19 13:12 01/12/19 13:12 Vital Signs Reviewed: Yes Diagnostics - Vital Signs Vital Signs Temp Pulse Resp BP Pulse Ox 01/12/19 13:12 98.5 F 110 22 163/91 97 - Laboratory Result Diagrams: 01/12/19 14:41 01/12/19 14:41 Lab Statement: Any lab studies that have been ordered have been reviewed, and results considered in the medical decision making process. - Radiology CXR Radiology Interpretation Completed By: Radiologist Summary of Radiographic Findings: Findings consistent with COPD. No evidence for acute disease. ED Provider has reviewed this report. - EKG 1312 Cardiac Rate: NL EKG Rhythm: Sinus Rhythm - 96 BPM Summary of EKG Findings: NSR, normal ectopy, normal ST, no STEMi. Disposition - Course Course Of Treatment: Ms. Pablo Sierra was recently started on steroids for COPD exacerbation by her PCP. She has not gotten any better and complains of shortness of breath with any activity. I gave her some Solu-Medrol as well as DuoNeb nebs but she continued to remain tachypneic. - Diagnoses Provider Diagnoses: COPD exacerbation Discharge - Sign-Out/Discharge Documenting (check all that apply): Patient Departure - Admission - Discharge Plan Condition: Stable Disposition: ADMITTED TO [facility] - Billing Disposition and Condition Condition: STABLE Disposition: Admitted to [facility] - Attestation Statements Document Initiated by Columba: Yes Documenting Scribe: Saul Sher Provider For Whom Columba is Documenting (Include Credential): Eamon Sun MD Scribe Attestation: Saul Adler, scribed for Eamon Sun MD on 01/12/19 at 2020. Scribe Documentation Reviewed: Yes Provider Attestation: The documentation as recorded by the scribe, Saul Sher accurately reflects the service I personally performed and the decisions made by me, Eamon Sun MD Status of Scribe Document: Viewed
[2019-01-12] MEDS ORDERED: Albuterol/Ipratropium NEB.SOL* Albuterol 2.5 MG/Ipratropium 0.5 MG 3 ML INH ONE ×2 (14:28→16:28)
[2019-01-12] MEDS ORDERED: methylPREDNISolone 125 MG* 2 ML VIAL IV ONE (14:28)
[2019-01-12 14:59] LABS: ABS Lymphocytes 0.4 10^3/ul (1.0-4.8); ABS Monocytes 0.1 10^3/ul (0-0.8); ABS Neutrophils 8.4 10^3/ul (1.5-7.7); Eosinophil % 0.1 %; Hematocrit 37 % (35-47); Hemoglobin 12.1 g/dL (12.0-16.0); Lymphocyte % 4.2 %; Mean Corpuscular HGB Conc 32 g/dL (31-36); Mean Corpuscular Hemoglobin 29 pg (27-31); Mean Corpuscular Volume 88 fL (80-97); Mean Platelet Volume 8.7 fL (7.4-10.4); Platelet Count 298 10^3/uL (150-450); Red Blood Count 4.24 10^6 /uL (3.70-4.87); Red Cell Distribution Width 14 % (10.5-15); White Blood Count 8.9 10^3/uL (3.5-10.8)
[2019-01-12 15:08] LABS: INR 1.02 (0.82-1.09)
[2019-01-12 15:17] LABS: ALT 10 U/L (7-52); Albumin 4.1 g/dL (3.2-5.2); Albumin/Globulin Ratio 1.3 (1-3); Alkaline Phosphatase 58 U/L (34-104); BUN/Creatinine Ratio 25.4 (8-20); Blood Urea Nitrogen 29 mg/dL (6-24); C Reactive Protein 4.97 mg/L (<8.01); CO2 Carbon Dioxide 28 mmol/L (22-32); Chloride 101 mmol/L (101-111); EGFR African American 55.5 (>60); EGFR Non-African American 45.9 (>60); Globulin 3.2 g/dL (2-4); Glucose 184 mg/dL (70-100); Sodium 137 mmol/L (135-145); Total Protein 7.3 g/dL (6.4-8.9)
[2019-01-12 15:24] LABS: Troponin I 0.04 ng/mL (<0.04)
[2019-01-12 15:37] LABS: AST 16 U/L (13-39); Anion Gap 8 mmol/L (2-11)
[2019-01-12] MEDS ORDERED: Albuterol/Ipratropium NEB.SOL* Albuterol 2.5 MG/Ipratropium 0.5 MG 3 ML INH PRN (17:14)
[2019-01-12] MEDS ORDERED: GuaiFENesin DM* 5 ML UDC PO PRN (17:33)
[2019-01-12] MEDS ORDERED: NS 0.9% 1000 ML** 1,000 ML IV SCH (18:15)
[2019-01-12] MEDS: Mometasone/Formoter 200/5 MDI INH SCH (19:33)
[2019-01-12] MEDS: cefTRIAXone(*) 1 GM in NS 0.9% 50 ML* 50 ML IVPB SCH (19:36)
--- NOTE | 2019-01-12 19:46 | HP ---
CC: Dr. Rhodes * HISTORY AND PHYSICAL: DATE OF ADMISSION: 01/12/19 PROVIDER: Chris Schmidt NP. ATTENDING PHYSICIAN: Dr. Garcia * (report dictated by Chris Schmidt NP). PRIMARY CARE PROVIDER: Dr. Rhodes. SOCIAL STAFF WORKER: Dr. Rodriguez. CHIEF COMPLAINT: Shortness of breath. HISTORY OF PRESENT ILLNESS: Ms. Reilly is an 78-year-old female with a past medical history significant for COPD/asthma, Churg-Dave vasculitis, neuropathy, hypertension, osteoporosis, who presented to the emergency department today with shortness of breath for 4 or 5 days. She reports she is not exactly sure when her shortness of breath started, but has been at least since late last week, approximately 4 to 5 days ago. She also reports increased sputum production with white to light yellow sputum. She reports that she saw her primary care provider yesterday, who did a chest x-ray and said it was possible she had a pneumonia versus COPD exacerbation, was prescribed a steroid taper as well as a "low-dose antibiotic for 3 days." The patient reports she only had 1 dose of the antibiotic. She was so short of breath today and she came to the emergency room for further evaluation. The patient denies any fevers or chills. She wears 2 L oxygen via nasal cannula 24x7. In the emergency department, she was found to be 97% on 2 L nasal cannula ; however, her respiratory rate is in the high 20s and 30s. She has coarse rhonchi throughout and has notable audible wheezes. In the emergency department , she was given Solu-Medrol 125 mg IV. Hospital Medicine was asked to evaluate the patient for admission. On evaluation of the patient in the emergency department, the patient is sitting up in bed watching TV and she appears slightly dyspneic with a respiratory rate of 28. She is noted to have a harsh cough with audible wheezing. The patient reports that she feels much better after a recent nebulizer as well as steroids and feels that she is "settling down." The patient will be admitted to the hospitalist service for IV antibiotics and IV steroids. The patient does report that she normally nebulizes herself 4 to 6 times a day at her baseline and for the past 3 to 4 days has been nebulizing herself every 2 hours. She reports that she follows with her program director/morning show host, Dr. Rodriguez, in [place] on a regular basis. PAST MEDICAL HISTORY: 1. Asthma/COPD, on 2 L nasal cannula 24x7. 2. Churg-Dave vasculitis. 3. Hypertension. 4. Osteoporosis. 5. Neuropathy. PAST SURGICAL HISTORY: 1. Tonsillectomy. 2. Cholecystectomy. 3. Tubal ligation. 4. Back surgery in 2005. 5. Cardiac catheterization. 6. Basal cell carcinoma removal. HOME MEDICATIONS: 1. Unknown antibiotic, recently prescribed by PCP on 01/11/19. 2. Prednisone taper, recently prescribed by PCP on 01/11/19. 3. Potassium chloride 20 mEq p.o. daily. 4. Omeprazole 20 mg p.o. daily. 5. Lisinopril 10 mg p.o. daily. 6. Hydrochlorothiazide 12.5 mg p.o. daily. 7. Neurontin 300 mg p.o. t.i.d. 8. Vitamin D 2000 units p.o. daily. 9. Symbicort 160/4.5 two puffs INH b.i.d. 10. Amlodipine 2.5 mg p.o. daily. 11. Fosamax 70 mg p.o. weekly. 12. DuoNeb 1 neb INH 4 times daily p.r.n. 13. Albuterol 2 puffs INH q.4 hours p.r.n. 14. Ventolin nebulizer 2.5 mg INH q.6 hours p.r.n. ALLERGIES: MONTELUKAST. FAMILY HISTORY: The patient's father at 93 of natural causes. The patient 's mother at 91 of a CVA. SOCIAL HISTORY: The patient has never smoked. Denies alcohol use. The patient is . 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 Her surrogate decision maker is her son, Donny. The patient lives with her daughter and does ambulate with a walker. REVIEW OF SYSTEMS: A 14-point review of systems was performed. All the positives and negatives are mentioned in the history of present illness, otherwise negative. PHYSICAL EXAMINATION GENERAL APPEARANCE: Elderly female, alert and oriented x3, sitting up in the emergency department stretcher watching TV, in no acute distress, slightly dyspneic. VITAL SIGNS: Temperature 98.5, heart rate 97, respirations 30, O2 sat 95% on 2 L nasal cannula, and blood pressure 136/71. HEENT: Head is normocephalic and atraumatic. Pupils are equal and reactive to light. Oropharynx is clear. Moist mucous membranes. NECK: Supple. No JVD noted. No carotid bruits noted. LUNGS: Scattered coarse rhonchi with expiratory wheezes. Slightly tachypneic, but no air hunger noted. CARDIAC: S1, S2. Regular rate and rhythm. Grade 2/6 systolic murmur heard best at the left upper sternal border. ABDOMEN: Soft, nontender, nondistended. Normal bowel sounds throughout. NEURO: Cranial nerves II through XII grossly intact. No focal deficits noted. Sensation to the lower extremities is intact to shins. Her bilateral feet have less sensation. Per the patient, this is due to her neuropathy and is her baseline. Alert and oriented x3. DIAGNOSTIC STUDIES/LAB DATA: Sodium 137, potassium 5.0, chloride 101, carbon dioxide 28, anion gap 8, BUN 29, creatinine 1.14, glucose 184, lactic acid 1.2, calcium 10.0. Total bilirubin 0.50, AST 16, ALT 10, alkaline phosphatase 58. Troponin 0.04, C-reactive protein 4.97, BNP 88. Total protein 7.3, albumin 4.1. INR 1.02, D-dimer less than 200. WBC is 8.9, RBC 4.24, HGB 12.1, HCT 37, MCV 88, MCH 29, MCHC 32, platelet count 284. Chest x-ray, impression: Findings consistent with COPD. No evidence for acute disease. EKG: Sinus rhythm with a rate of 96. In comparison to prior EKG, no acute ST changes noted. ASSESSMENT AND PLAN: Ms. Reilly is an 78-year-old female with a past medical history of severe asthma/chronic obstructive pulmonary disease, on 2 L nasal cannula 24x7 at home, who at her baseline nebulizes herself 4 to 6 times a day; history of Churg-Dave vasculitis; neuropathy; hypertension; osteoporosis, who presents to the emergency department today with report of shortness of breath for 4 to 6 days, worsening with increased sputum production , was seen by her primary care provider yesterday, diagnosed with possible pneumonia/chronic obstructive pulmonary disease exacerbation and started on oral antibiotics and prednisone taper. The patient will be admitted to the hospitalist service for chronic obstructive pulmonary disease exacerbation. 1. Chronic obstructive pulmonary disease exacerbation. There does not appear to be a pneumonia on the chest x-ray. She was started on IV Solu-Medrol in the emergency department and this will be continued as Solu-Medrol 40 mg IV q.12 hours and we will start ceftriaxone and azithromycin. We will try to obtain sputum culture. She has no leukocytosis. She does not appear septic. Lactic is negative. D-dimer is negative. We will start Mucinex. The patient is on her home oxygen baseline of 2 L nasal cannula. The patient states that she would not want intubation, but would take BiPAP if needed. The patient is stable at this time and can be admitted to the medical floor. 2. Elevated troponin. She has had elevated troponins before in the previous hospitalization, though this appears to be around her baseline. She has no chest pain, no EKG changes. We will trend 1 more troponin and monitor on tele. 3. Possible acute kidney injury with a creatinine of 1.14. Appears to be slightly above her baseline. We will give her gentle IV fluids of 1 L normal saline overnight and repeat creatinine in the morning. 4. Hypertension, controlled. Continue home medications lisinopril 10 mg p.o. daily, hydrochlorothiazide 12.5 mg daily, and amlodipine 2.5 mg p.o. daily. 5. Neuropathy. Continue gabapentin 300 mg p.o. t.i.d. 6. Gastroesophageal reflux disease. Continue omeprazole. 7. History of electrolyte abnormalities. The patient takes potassium chloride 20 mEq p.o. daily. Her potassium is 5 on admission. We will continue home dose and we will just continue to trend her potassium levels. 8. DVT prophylaxis: Heparin subcu. 9. Code status: The patient states that she is a DNR/DNI. She has a MOLST on file, which will be printed and placed on the chart. 10. Healthcare proxy: She lists her son, Jordi Silver and her daughter, Iza Magana, as her healthcare proxies. 11. Hospital status: Observation. Admitted to [address] [place] [address]. 12. Condition: Stable. TIME SPENT: Approximately 60 minutes was spent on this admission. CHRIS SCHMIDT, BUSINESS SERVICES VICE PRESIDENT [id number]/[facility] #: [id number] [facility] HOSPITALElvira
[2019-01-12 20:07] LABS: Troponin I 0.04 ng/mL (<0.04)
[2019-01-12] MEDS: Azithromycin 500 mg/250 ml NS 500 MG/250 ML BAG IVPB SCH (20:47)
[2019-01-12] MEDS: Gabapentin CAP(*) 300 MG PO SCH (20:51)
[2019-01-12] MEDS: Heparin VIAL(*) 5000 UNITS/ML VIAL (FIVE THOUSAND) SUBCUT SCH (20:52)
[2019-01-13] MEDS: methylPREDNISolone SOD 40 MG* 1 ML VIAL IV SCH ×2 (05:14→18:12)
[2019-01-13] MEDS: Heparin VIAL(*) 5000 UNITS/ML VIAL (FIVE THOUSAND) SUBCUT SCH ×3 (05:14→21:00)
[2019-01-13 05:32] LABS: ABS Lymphocytes 0.8 10^3/ul (1.0-4.8); ABS Monocytes 0.4 10^3/ul (0-0.8); ABS Neutrophils 7.1 10^3/ul (1.5-7.7); Hematocrit 33 % (35-47); Hemoglobin 10.8 g/dL (12.0-16.0); Lymphocyte % 9.7 %; Mean Corpuscular HGB Conc 33 g/dL (31-36); Mean Corpuscular Hemoglobin 29 pg (27-31); Mean Corpuscular Volume 88 fL (80-97); Mean Platelet Volume 8.1 fL (7.4-10.4); Platelet Count 292 10^3/uL (150-450); Red Blood Count 3.73 10^6 /uL (3.70-4.87); Red Cell Distribution Width 14 % (10.5-15); White Blood Count 8.4 10^3/uL (3.5-10.8)
[2019-01-13 05:48] LABS: Anion Gap 5 mmol/L (2-11); BUN/Creatinine Ratio 29.1 (8-20); Blood Urea Nitrogen 30 mg/dL (6-24); CO2 Carbon Dioxide 30 mmol/L (22-32); Calcium 9.2 mg/dL (8.6-10.3); Chloride 104 mmol/L (101-111); EGFR African American 62.4 (>60); EGFR Non-African American 51.6 (>60); Glucose 142 mg/dL (70-100); Potassium 4.5 mmol/L (3.5-5.0); Sodium 139 mmol/L (135-145)
[2019-01-13 05:59] LABS: Troponin I 0.04 ng/mL (<0.04)
[2019-01-13] MEDS: Mometasone/Formoter 200/5 MDI INH SCH ×2 (09:03→19:21)
--- NOTE | 2019-01-13 09:07 | PN ---
Subjective Date of Service: 01/13/19 Interval History: Patient reports she is feeling better but continues to feel very wheezy with harsh cough. Denies fever/chills. Reports good appetite. No diarrhea. Objective Active Medications: Albuterol/Ipratropium (Duoneb (Albuterol 2.5 Mg/Ipratropium 0.5 Mg)) 1 neb INH QID PRN PRN Reason: SHORTNESS OF BREATH Last Admin: 01/12/19 19:32 Dose: 1 neb Amlodipine Besylate (Norvasc Tab*) 2.5 mg PO DAILY [facility] Cholecalciferol (Vitamin D Tab*) 2,000 units PO DAILY [facility] Gabapentin (Neurontin Cap(*)) 300 mg PO TID [facility] Last Admin: 01/12/19 20:51 Dose: 300 mg Guaifenesin/Dextromethorphan (Robitussin Dm*) 10 ml PO Q6H PRN PRN Reason: COUGH Heparin Sodium (Porcine) (Heparin Vial(*)) 5,000 units SUBCUT Q8HR [facility] Last Admin: 01/13/19 05:14 Dose: 5,000 units Hydrochlorothiazide (Hydrodiuril Tab*) 12.5 mg PO DAILY [facility] Azithromycin (Zithromax 500 Mg/250 Ml) 500 mg in 250 mls @ 250 mls/hr IVPB Q24H [facility] Last Admin: 01/12/19 20:47 Dose: 250 mls/hr Ceftriaxone Sodium 1 gm/ (Sodium Chloride) 50 mls @ 200 mls/hr IVPB Q24H [facility] Last Admin: 01/12/19 19:36 Dose: 200 mls/hr Lisinopril (Prinivil Tab*) 10 mg PO DAILY [facility] Methylprednisolone Sodium Succinate (Solu-Medrol 40 Mg) 40 mg IV Q12H [facility] Last Admin: 01/13/19 05:14 Dose: 40 mg Mometasone Furoate/Formoterol Fumar (Dulera 200/5 Mdi*) 2 puff INH BID [facility]; Protocol Last Admin: 01/13/19 09:03 Dose: 2 puff Pantoprazole Sodium (Protonix Tab*) 40 mg PO 1400 [facility] Potassium Chloride (Klor Con Er Tab*) 20 meq PO DAILY [facility] Vital Signs - 8 hr 01/13/19 01/13/19 01/13/19 03:46 07:19 09:06 Temperature 97.7 F 97.8 F Pulse Rate 97 95 115 Respiratory 20 25 22 Rate Blood Pressure 128/87 137/77 (mmHg) O2 Sat by Pulse 99 98 95 Oximetry Oxygen Devices in Use Now: Nasal Cannula Appearance: elderly female sitting up in bed in NAD, A+O x3 Eyes: No Scleral Icterus, PERRLA Ears/Nose/Mouth/Throat: NL Teeth, Lips, Gums, Mucous Membranes Moist Neck: NL Appearance and Movements; NL JVP Respiratory: Symmetrical Chest Expansion and Respiratory Effort, - - course rhonchi throughout with exp wheezing throughour; slight tachypnea noted with full sentences Cardiovascular: NL Sounds; No Murmurs; No JVD, RRR, No Edema Abdominal: No Hepatosplenomegaly Extremities: No Edema, No Clubbing, Cyanosis Skin: No Rash or Ulcers, No Nodules or Sclerosis Neurological: Alert and Oriented x 3, NL Sensation, NL Gait, NL Muscle Strength and Tone Lines/Tubes/Other Access: Clean, Dry and Intact Peripheral IV Nutrition: Taking PO's Result Diagrams: 01/13/19 05:25 01/13/19 05:25 Microbiology and Other Data: Microbiology 01/13/19 01:15 Gram Stain - Final Sputum Assess/Plan/Problems-Billing Assessment: Ms. Reilly is an 78-year-old female with a past medical history of severe asthma/chronic obstructive pulmonary disease, on 2 L nasal cannula 24x7 at home, who at her baseline nebulizes herself 4 to 6 times a day; history of Churg-Dave vasculitis; neuropathy; hypertension; osteoporosis, who presents to the emergency department on 01/12 with report of shortness of breath for 4 to 6 days, worsening with increased sputum production, was seen by her primary care provider yesterday, diagnosed with possible pneumonia/chronic obstructive pulmonary disease exacerbation and started on oral antibiotics and prednisone taper. The patient was admitted to the hospitalist service for chronic obstructive pulmonary disease exacerbation. - Patient Problems (1) COPD exacerbation Comment: acute exacerbation. 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 (5) DVT prophylaxis Comment: HSQ (6) DNR (do not resuscitate) Status and Disposition: inpatient for COPD Exacerbation. Home when medically stable 1-3 days most likely
[2019-01-13] MEDS ORDERED: Albuterol/Ipratropium NEB.SOL* Albuterol 2.5 MG/Ipratropium 0.5 MG 3 ML INH SCH (10:00)
[2019-01-13] MEDS: Potassium Chlor TAB* 20 MEQ TAB.ER PO SCH (10:01)
[2019-01-13] MEDS: Cholecalciferol TAB* 1000 UNITS PO SCH (10:01)
[2019-01-13] MEDS: Lisinopril TAB* 10 MG PO SCH (10:01)
[2019-01-13] MEDS: Hydrochlorothiazide TAB* 25 MG PO SCH (10:02)
[2019-01-13] MEDS: amLODIPine TAB* 5 MG PO SCH (10:03)
[2019-01-13] MEDS: Gabapentin CAP(*) 300 MG PO SCH ×3 (10:22→20:39)
[2019-01-13] MEDS: Pantoprazole TAB * 40 MG TAB PO SCH (14:19)
[2019-01-13] MEDS: Albuterol/Ipratropium NEB.SOL* Albuterol 2.5 MG/Ipratropium 0.5 MG 3 ML INH SCH ×3 (17:57→23:27)
[2019-01-13] MEDS: cefTRIAXone(*) 1 GM in NS 0.9% 50 ML* 50 ML IVPB SCH (18:12)
[2019-01-13] MEDS: Azithromycin 500 mg/250 ml NS 500 MG/250 ML BAG IVPB SCH (19:51)
[2019-01-14] MEDS: Albuterol/Ipratropium NEB.SOL* Albuterol 2.5 MG/Ipratropium 0.5 MG 3 ML INH SCH ×7 (03:18→23:12)
[2019-01-14] MEDS: Heparin VIAL(*) 5000 UNITS/ML VIAL (FIVE THOUSAND) SUBCUT SCH ×3 (05:22→21:37)
[2019-01-14] MEDS: methylPREDNISolone SOD 40 MG* 1 ML VIAL IV SCH (05:22)
[2019-01-14 06:42] LABS: ABS Lymphocytes 0.9 10^3/ul (1.0-4.8); ABS Monocytes 0.7 10^3/ul (0-0.8); Hematocrit 30 % (35-47); Lymphocyte % 7.8 %; Mean Corpuscular HGB Conc 33 g/dL (31-36); Mean Corpuscular Hemoglobin 29 pg (27-31); Mean Corpuscular Volume 87 fL (80-97); Mean Platelet Volume 8.3 fL (7.4-10.4); Platelet Count 281 10^3/uL (150-450); Red Blood Count 3.45 10^6 /uL (3.70-4.87); Red Cell Distribution Width 14 % (10.5-15); White Blood Count 11.6 10^3/uL (3.5-10.8)
[2019-01-14 06:55] LABS: BUN/Creatinine Ratio 29.8 (8-20); Calcium 8.6 mg/dL (8.6-10.3); EGFR African American 61.7 (>60); Potassium 4.2 mmol/L (3.5-5.0)
[2019-01-14] MEDS: Mometasone/Formoter 200/5 MDI INH SCH ×2 (07:34→18:58)
[2019-01-14] MEDS: Lisinopril TAB* 10 MG PO SCH (08:38)
[2019-01-14] MEDS: Gabapentin CAP(*) 300 MG PO SCH ×3 (08:38→20:37)
[2019-01-14] MEDS: Hydrochlorothiazide TAB* 25 MG PO SCH (08:38)
[2019-01-14] MEDS: Cholecalciferol TAB* 1000 UNITS PO SCH (08:38)
[2019-01-14] MEDS: Potassium Chlor TAB* 20 MEQ TAB.ER PO SCH (08:38)
[2019-01-14] MEDS: amLODIPine TAB* 5 MG PO SCH (08:39)
[2019-01-14] MEDS: predniSONE TAB* 50 MG PO SCH (12:05)
[2019-01-14] MEDS: Pantoprazole TAB * 40 MG TAB PO SCH (14:43)
--- NOTE | 2019-01-14 16:06 | PN ---
Subjective Date of Service: 01/14/19 Interval History: Patient is feeling better. Patient states she is back to her baseline but amends this when tachypnea is pointed out. Patient states she was recently placed on steroids and chronic 3x weekly antibiotics for suppression of COPD exacerbation. Patient has marked RUSSO, but states this is not much worse than baseline. Patient denies F/C, N/V, abdominal pain, diarrhea, CP, dizziness, or other pain. Family History: Unchanged from Admission Social History: Unchanged from Admission Past Medical History: Unchanged from Admission Objective Active Medications: Albuterol/Ipratropium (Duoneb (Albuterol 2.5 Mg/Ipratropium 0.5 Mg)) 1 neb INH Q4H [facility] Last Admin: 01/14/19 15:53 Dose: 1 neb Amlodipine Besylate (Norvasc Tab*) 2.5 mg PO DAILY [facility] Last Admin: 01/14/19 08:39 Dose: 2.5 mg Cholecalciferol (Vitamin D Tab*) 2,000 units PO DAILY [facility] Last Admin: 01/14/19 08:38 Dose: 2,000 units Gabapentin (Neurontin Cap(*)) 300 mg PO TID [facility] Last Admin: 01/14/19 14:43 Dose: 300 mg Guaifenesin/Dextromethorphan (Robitussin Dm*) 10 ml PO Q6H PRN PRN Reason: COUGH Heparin Sodium (Porcine) (Heparin Vial(*)) 5,000 units SUBCUT Q8HR [facility] Last Admin: 01/14/19 14:43 Dose: 5,000 units Hydrochlorothiazide (Hydrodiuril Tab*) 12.5 mg PO DAILY [facility] Last Admin: 01/14/19 08:38 Dose: 12.5 mg Azithromycin (Zithromax 500 Mg/250 Ml) 500 mg in 250 mls @ 250 mls/hr IVPB Q24H [facility] Last Admin: 01/13/19 19:51 Dose: 250 mls/hr Ceftriaxone Sodium 1 gm/ (Sodium Chloride) 50 mls @ 200 mls/hr IVPB Q24H [facility] Last Admin: 01/13/19 18:12 Dose: 200 mls/hr Lisinopril (Prinivil Tab*) 10 mg PO DAILY [facility] Last Admin: 01/14/19 08:38 Dose: 10 mg Mometasone Furoate/Formoterol Fumar (Dulera 200/5 Mdi*) 2 puff INH BID [facility]; Protocol Last Admin: 01/14/19 07:34 Dose: 2 puff Pantoprazole Sodium (Protonix Tab*) 40 mg PO 1400 [facility] Last Admin: 01/14/19 14:43 Dose: 40 mg Potassium Chloride (Klor Con Er Tab*) 20 meq PO DAILY [facility] Last Admin: 01/14/19 08:38 Dose: 20 meq Prednisone (Deltasone Tab*) 50 mg PO DAILY [facility] Last Admin: 01/14/19 12:05 Dose: 50 mg Vital Signs - 8 hr 01/14/19 01/14/19 01/14/19 08:38 08:58 10:58 Temperature Pulse Rate 840 Respiratory 16 16 18 Rate Blood Pressure (mmHg) O2 Sat by Pulse 96 Oximetry 01/14/19 01/14/19 01/14/19 11:27 12:07 14:43 Temperature 98.6 F Pulse Rate 87 Respiratory 20 16 18 Rate Blood Pressure 110/52 (mmHg) O2 Sat by Pulse 98 Oximetry 01/14/19 01/14/19 15:33 15:55 Temperature 97.6 F Pulse Rate 90 88 Respiratory 22 20 Rate Blood Pressure 111/53 (mmHg) O2 Sat by Pulse 97 98 Oximetry Oxygen Devices in Use Now: Nasal Cannula Appearance: Patient is an 78yo female who appears stated age and is sitting in the bed in [facility]. Eyes: No Scleral Icterus, PERRLA Ears/Nose/Mouth/Throat: NL Teeth, Lips, Gums, Clear Oropharnyx, Mucous Membranes Moist Neck: NL Appearance and Movements; NL JVP, Trachea Midline Respiratory: Symmetrical Chest Expansion and Respiratory Effort, - - Expiratory Wheezing and rhonchi throughout. Cardiovascular: NL Sounds; No Murmurs; No JVD, RRR, No Edema Abdominal: NL Sounds; No Tenderness; No Distention, No Hepatosplenomegaly Lymphatic: No Cervical Adenopathy, No Axillary Adenopathy Extremities: No Edema, No Clubbing, Cyanosis Skin: No Rash or Ulcers, No Nodules or Sclerosis Neurological: Alert and Oriented x 3, NL Sensation, NL Muscle Strength and Tone , - - CN II-XII intact. Result Diagrams: 01/14/19 06:13 01/14/19 06:13 Microbiology and Other Data: Microbiology Assess/Plan/Problems-Billing Assessment: Ms. Reilly is an 78-year-old female with a past medical history of severe asthma/chronic obstructive pulmonary disease, on 2 L nasal cannula 24x7 at home, who at her baseline nebulizes herself 4 to 6 times a day; history of Churg-Dave vasculitis; neuropathy; hypertension; osteoporosis, who presents to the emergency department on 01/12 with report of shortness of breath for 4 to 6 days, worsening with increased sputum production, was seen by her primary care provider, diagnosed with possible pneumonia/chronic obstructive pulmonary disease exacerbation and started on oral antibiotics and prednisone taper. The patient was admitted to the hospitalist service for chronic obstructive pulmonary disease exacerbation and is improving gradually. - Patient Problems (1) COPD exacerbation Current Visit: Yes Status: Acute Priority: High Code(s): J44.1 - CHRONIC OBSTRUCTIVE PULMONARY DISEASE W (ACUTE) EXACERBATION SNOMED Code(s): 707064801 Comment: - Moderate Acute exacerbation. - Sputum cx pending to possibly guide therapy - Duonebs q4 standing - Hayes, consider adding on Spiriva -Chronic oxygen 2L at home - at baseline - Continue ceftrixanone, azithromycin - Taper steroids to 50mg Prednisone PO daily - Hx of Churg-Dave, on chronic steroids, follow up Rheumatology - Encourage flutter valve (2) Acute and chronic respiratory failure with hypoxia Current Visit: No Status: Acute Code(s): J96.21 - ACUTE AND CHRONIC RESPIRATORY FAILURE WITH HYPOXIA SNOMED Code(s): 58296628 Comment: - Due to COPD exacerbation. Continue CTX/Azithromycin. - Continue Steroids to 60 mg BID. - Continue nebs/inhalers. - Weaned down to her home 2L NC. - On baseline 10 mg PO prednisone at home. (3) Churg-Dave syndrome Current Visit: Yes Status: Chronic Priority: Medium Comment: - On chronic steroid therapy - Follows with Pulm in [place], considering transitioning care locally for both Pulmonology and Rheumatology. (4) GERD (gastroesophageal reflux disease) Current Visit: Yes Status: Chronic Code(s): K21.9 - GASTRO-ESOPHAGEAL REFLUX DISEASE WITHOUT ESOPHAGITIS SNOMED Code(s): 648408831 Comment: - continue PPI (5) HTN (hypertension) Current Visit: Yes Status: Chronic Code(s): I10 - ESSENTIAL (PRIMARY) HYPERTENSION SNOMED Code(s): 24904659 Comment: - Continue home dose amlodipine, HCTZ and Lisinopril. - Normotensive (6) Peripheral neuropathy Current Visit: No Status: Acute Code(s): G62.9 - POLYNEUROPATHY, UNSPECIFIED SNOMED Code(s): 040431383 Comment: - Continue gabapentin (7) DNR (do not resuscitate) Current Visit: Yes Status: Acute Priority: High Onset Date: 07/21/14 (8) DVT prophylaxis Current Visit: Yes Status: Acute Code(s): IMG8694 - SNOMED Code(s): 911088797 Comment: HSQ Status and Disposition: Inpatient for COPD Exacerbation. Home when medically stable, hopefully tomorrow.
[2019-01-14] MEDS: cefTRIAXone(*) 1 GM in NS 0.9% 50 ML* 50 ML IVPB SCH (18:27)
[2019-01-14] MEDS: ceFUROXime TAB(*) 250 MG PO SCH (20:37)
[2019-01-15] MEDS: Albuterol/Ipratropium NEB.SOL* Albuterol 2.5 MG/Ipratropium 0.5 MG 3 ML INH SCH ×6 (03:25→22:53)
[2019-01-15] MEDS: Heparin VIAL(*) 5000 UNITS/ML VIAL (FIVE THOUSAND) SUBCUT SCH ×3 (05:34→21:11)
[2019-01-15 07:52] LABS: ABS Lymphocytes 1.3 10^3/ul (1.0-4.8); ABS Monocytes 1.3 10^3/ul (0-0.8); ABS Neutrophils 9.6 10^3/ul (1.5-7.7); Eosinophil % 0.1 %; Hematocrit 33 % (35-47); Hemoglobin 10.7 g/dL (12.0-16.0); Lymphocyte % 10.7 %; Mean Corpuscular HGB Conc 33 g/dL (31-36); Mean Corpuscular Hemoglobin 29 pg (27-31); Mean Corpuscular Volume 88 fL (80-97); Platelet Count 284 10^3/uL (150-450); Red Blood Count 3.73 10^6 /uL (3.70-4.87); Red Cell Distribution Width 14 % (10.5-15); White Blood Count 12.3 10^3/uL (3.5-10.8)
[2019-01-15 08:08] LABS: BUN/Creatinine Ratio 26.7 (8-20); Calcium 8.9 mg/dL (8.6-10.3); EGFR African American 54.4 (>60); Magnesium 2.1 mg/dL (1.9-2.7)
[2019-01-15] MEDS: predniSONE TAB* 50 MG PO SCH (08:34)
[2019-01-15] MEDS: Lisinopril TAB* 10 MG PO SCH (08:34)
[2019-01-15] MEDS: Hydrochlorothiazide TAB* 25 MG PO SCH (08:34)
[2019-01-15] MEDS: amLODIPine TAB* 5 MG PO SCH (08:34)
[2019-01-15] MEDS: ceFUROXime TAB(*) 250 MG PO SCH ×2 (08:34→20:19)
[2019-01-15] MEDS: Potassium Chlor TAB* 20 MEQ TAB.ER PO SCH (08:34)
[2019-01-15] MEDS: Cholecalciferol TAB* 1000 UNITS PO SCH (08:34)
[2019-01-15] MEDS: Gabapentin CAP(*) 300 MG PO SCH ×3 (08:35→20:19)
[2019-01-15] MEDS: Azithromycin TAB* 250 MG PO SCH (08:35)
[2019-01-15] MEDS: Mometasone/Formoter 200/5 MDI INH SCH ×2 (09:29→19:05)
[2019-01-15] MEDS ORDERED: Spiriva Inhaler DEVICE* 1 EACH DEVICE INH SCH (11:00)
[2019-01-15] MEDS: guaiFENesin ER TAB 600 MG PO SCH ×2 (12:48→20:19)
[2019-01-15] MEDS: Tiotropium CAP.INH* CAP.INH/18 MCG (USE ORDER SET !) INH SCH (14:25)
--- NOTE | 2019-01-15 15:19 | PN ---
Subjective Date of Service: 01/15/19 Interval History: Patient continues to be SOB with minimal exertion, patient repeatedly states she feels better than previously, but objectively is only slightly improved. Patient denies CP, N/V, abdominal pain, dysuria, F/C. Patient is intermittently productive of sputum and coughs frequently. Family History: Unchanged from Admission Social History: Unchanged from Admission Past Medical History: Unchanged from Admission Objective Active Medications: Albuterol/Ipratropium (Duoneb (Albuterol 2.5 Mg/Ipratropium 0.5 Mg)) 1 neb INH [id number] AWAKE [facility] Last Admin: 01/15/19 13:39 Dose: 1 neb Amlodipine Besylate (Norvasc Tab*) 2.5 mg PO DAILY [facility] Last Admin: 01/15/19 08:34 Dose: 2.5 mg Azithromycin (Zithromax Tab*) 250 mg PO DAILY [facility] Last Admin: 01/15/19 08:35 Dose: 250 mg Cefuroxime Axetil (Ceftin Tab(*)) 500 mg PO BID [facility] Last Admin: 01/15/19 08:34 Dose: 500 mg Cholecalciferol (Vitamin D Tab*) 2,000 units PO DAILY [facility] Last Admin: 01/15/19 08:34 Dose: 2,000 units Device (Tiotropium Inhaler Device*) 1 each INH .USE w/ SPIRIVA CAPS [facility] Gabapentin (Neurontin Cap(*)) 300 mg PO TID [facility] Last Admin: 01/15/19 08:35 Dose: 300 mg Guaifenesin (Mucinex*) 1,200 mg PO BID [facility] Last Admin: 01/15/19 12:48 Dose: 1,200 mg Heparin Sodium (Porcine) (Heparin Vial(*)) 5,000 units SUBCUT Q8HR [facility] Last Admin: 01/15/19 05:34 Dose: 5,000 units Hydrochlorothiazide (Hydrodiuril Tab*) 12.5 mg PO DAILY [facility] Last Admin: 01/15/19 08:34 Dose: 12.5 mg Lisinopril (Prinivil Tab*) 10 mg PO DAILY [facility] Last Admin: 01/15/19 08:34 Dose: 10 mg Mometasone Furoate/Formoterol Fumar (Dulera 200/5 Mdi*) 2 puff INH BID [facility]; Protocol Last Admin: 01/15/19 09:29 Dose: 2 puff Pantoprazole Sodium (Protonix Tab*) 40 mg PO 1400 [facility] Last Admin: 01/14/19 14:43 Dose: 40 mg Potassium Chloride (Klor Con Er Tab*) 20 meq PO DAILY [facility] Last Admin: 01/15/19 08:34 Dose: 20 meq Prednisone (Deltasone Tab*) 50 mg PO DAILY [facility] Last Admin: 01/15/19 08:34 Dose: 50 mg Tiotropium [employer] (Spiriva Cap.Inh*) 1 cap INH DAILY [facility] Last Admin: 01/15/19 14:25 Dose: Not Given Vital Signs - 8 hr 01/15/19 01/15/19 01/15/19 08:00 08:35 11:08 Temperature 97.5 F Pulse Rate 94 Respiratory 24 24 22 Rate Blood Pressure 130/66 (mmHg) O2 Sat by Pulse 99 Oximetry 01/15/19 01/15/19 11:57 13:40 Temperature 97.9 F Pulse Rate 96 90 Respiratory 24 16 Rate Blood Pressure 125/60 (mmHg) O2 Sat by Pulse 99 97 Oximetry Oxygen Devices in Use Now: Nasal Cannula Appearance: Patient is an 78yo female who appears stated age and is sitting in the bed with significantly increased WOB. Eyes: No Scleral Icterus, PERRLA Ears/Nose/Mouth/Throat: NL Teeth, Lips, Gums, Clear Oropharnyx, Mucous Membranes Moist Neck: NL Appearance and Movements; NL JVP, Trachea Midline Respiratory: Symmetrical Chest Expansion and Respiratory Effort, - - Wheezing throughout with rhonchi and cough. Cardiovascular: NL Sounds; No Murmurs; No JVD, RRR, No Edema Abdominal: NL Sounds; No Tenderness; No Distention, No Hepatosplenomegaly Lymphatic: No Cervical Adenopathy Extremities: No Edema, No Clubbing, Cyanosis Skin: No Rash or Ulcers, No Nodules or Sclerosis Neurological: Alert and Oriented x 3, NL Sensation, NL Muscle Strength and Tone , - - CN II-XII intact. Result Diagrams: 01/15/19 07:43 01/15/19 07:43 Microbiology and Other Data: Microbiology Assess/Plan/Problems-Billing Assessment: Ms. Reilly is an 78-year-old female with a past medical history of severe asthma/chronic obstructive pulmonary disease, on 2 L nasal cannula 24x7 at home, who at her baseline nebulizes herself 4 to 6 times a day; history of Churg-Dave vasculitis; neuropathy; hypertension; osteoporosis, who presents to the emergency department on 01/12 with report of shortness of breath for 4 to 6 days, worsening with increased sputum production, was seen by her primary care provider, diagnosed with possible pneumonia/chronic obstructive pulmonary disease exacerbation and started on oral antibiotics and prednisone taper. The patient was admitted to the hospitalist service for chronic obstructive pulmonary disease exacerbation and is improving gradually. - Patient Problems (1) COPD exacerbation Current Visit: Yes Status: Acute Priority: High Code(s): J44.1 - CHRONIC OBSTRUCTIVE PULMONARY DISEASE W (ACUTE) EXACERBATION SNOMED Code(s): 464267077 Comment: - Moderate Acute exacerbation. - Sputum cx pending to possibly guide therapy - Duonebs q4 standing - Dulera, and Spiriva - Chronic oxygen 2L at home - at baseline - Continue ceftrixanone, azithromycin - Taper steroids to 50mg Prednisone PO daily - Hx of Churg-Dave, on chronic steroids, follow up Rheumatology - Encourage flutter valve - Evaluation by Pulmonology today (2) Acute and chronic respiratory failure with hypoxia Current Visit: No Status: Acute Code(s): J96.21 - ACUTE AND CHRONIC RESPIRATORY FAILURE WITH HYPOXIA SNOMED Code(s): 10408097 Comment: - Due to COPD exacerbation. Continue CTX/Azithromycin. - Continue Steroids to 50mg daily - Continue nebs/inhalers. - Weaned down to her home 2L NC. - On baseline 10 mg PO prednisone at home. (3) Churg-Dave syndrome Current Visit: Yes Status: Chronic Priority: Medium Comment: - On chronic steroid therapy - Follows with Pulm in [place], considering transitioning care locally for both Pulmonology and Rheumatology. (4) GERD (gastroesophageal reflux disease) Current Visit: Yes Status: Chronic Code(s): K21.9 - GASTRO-ESOPHAGEAL REFLUX DISEASE WITHOUT ESOPHAGITIS SNOMED Code(s): 474963532 Comment: - continue PPI (5) HTN (hypertension) Current Visit: Yes Status: Chronic Code(s): I10 - ESSENTIAL (PRIMARY) HYPERTENSION SNOMED Code(s): 89876452 Comment: - Continue home dose amlodipine, HCTZ and Lisinopril. - Normotensive (6) Peripheral neuropathy Current Visit: No Status: Acute Code(s): G62.9 - POLYNEUROPATHY, UNSPECIFIED SNOMED Code(s): 032095410 Comment: - Continue gabapentin (7) DNR (do not resuscitate) Current Visit: Yes Status: Acute Priority: High Onset Date: 07/21/14 (8) DVT prophylaxis Current Visit: Yes Status: Acute Code(s): HLT5418 - SNOMED Code(s): 793728421 Comment: HSQ Status and Disposition: Inpatient for COPD Exacerbation. Home when medically stable
[2019-01-15] MEDS: Pantoprazole TAB * 40 MG TAB PO SCH (15:51)
[2019-01-16] MEDS: Albuterol/Ipratropium NEB.SOL* Albuterol 2.5 MG/Ipratropium 0.5 MG 3 ML INH SCH ×2 (03:03→07:45)
[2019-01-16] MEDS: Heparin VIAL(*) 5000 UNITS/ML VIAL (FIVE THOUSAND) SUBCUT SCH (05:53)
[2019-01-16] MEDS: Mometasone/Formoter 200/5 MDI INH SCH (07:45)
[2019-01-16] MEDS: Tiotropium CAP.INH* CAP.INH/18 MCG (USE ORDER SET !) INH SCH (07:45)
[2019-01-16] MEDS: Gabapentin CAP(*) 300 MG PO SCH (08:16)
[2019-01-16] MEDS: ceFUROXime TAB(*) 250 MG PO SCH (08:16)
[2019-01-16] MEDS: Azithromycin TAB* 250 MG PO SCH (08:17)
[2019-01-16] MEDS: predniSONE TAB* 50 MG PO SCH (08:17)
[2019-01-16] MEDS: guaiFENesin ER TAB 600 MG PO SCH (08:17)
[2019-01-16] MEDS: Cholecalciferol TAB* 1000 UNITS PO SCH (08:17)
[2019-01-16] MEDS: Potassium Chlor TAB* 20 MEQ TAB.ER PO SCH (08:18)
[2019-01-16] MEDS: Hydrochlorothiazide TAB* 25 MG PO SCH (08:18)
[2019-01-16] MEDS: Lisinopril TAB* 10 MG PO SCH (08:21)
[2019-01-16] MEDS: amLODIPine TAB* 5 MG PO SCH (08:21)
[2019-01-16 11:07] VITALS: BP 129/58
--- NOTE | 2019-01-16 20:41 | DS ---
CC: Dr. Rodriguez, Pulmonology; Dr. Lianet Black; Dr. Tong* DISCHARGE SUMMARY: DATE OF ADMISSION: 01/12/19 DATE OF DISCHARGE: 01/16/19 PRIMARY CARE PROVIDER: Dr. Faustino Rhodes. MY ATTENDING WHILE IN THE HOSPITAL: Dr. Eusebio Fontanez* (dictated by NELSON Bundy). PRIMARY DISCHARGE DIAGNOSES: 1. Chronic obstructive pulmonary disease exacerbation. 2. Possible community acquired pneumonia. SECONDARY DISCHARGE DIAGNOSES: 1. Churg-Dave vasculitis, in remission. 2. Hypertension. 3. Osteoporosis. 4. Neuropathy. STUDIES DONE WHILE IN THE HOSPITAL: Chest x-ray from 01/12/19 read as findings consistent with COPD. No evidence of acute disease. MEDICATIONS AT DISCHARGE: 1. Potassium chloride 20 mEq p.o. daily. 2. Amlodipine 2.5 mg p.o. daily. 3. Gabapentin 300 mg p.o. t.i.d. 4. Hydrochlorothiazide 12.5 mg p.o. daily. 5. Omeprazole 20 mg p.o. daily. 6. Lisinopril 10 mg p.o. daily. 7. Vitamin D 2000 units p.o. daily. 8. Symbicort 160/4.5 two puffs inhalation b.i.d. 9. Alendronate 70 mg p.o. weekly. 10. DuoNeb 1 neb inhalation 4 times daily as needed. 11. Albuterol inhaler 2 puffs inhalation q.4 hours as needed. 12. Albuterol nebulizer 2.5 mg inhalation q.6 hours as needed. 13. Zithromax 250 mg p.o. daily x3 and then every other day chronically. 14. Cefuroxime 500 mg p.o. b.i.d. x10 more doses. 15. Mucinex 1200 mg p.o. b.i.d. 16. Spiriva inhaler 1 cap inhalation daily. 17. Prednisone 50 mg p.o. daily with taper by 10 mg every 3 days to chronic dose of 10 mg p.o. daily. New medications at discharge: 1. Zithromax. 2. Cefuroxime. 3. Spiriva. 4. Guaifenesin. 5. Prednisone. Medications discontinued at discharge: None. HOSPITAL COURSE: This is a brief summary of the patient's presentation. For more details, please see the history and physical from Lorna Polk NP, on 01/12/19. In brief, the patient is an 78-year-old female with past medical history significant for the above, who at baseline has a rather limited functional status based on significant dyspnea on exertion and need for frequent nebulizations to control her respiratory symptoms. The patient had been getting worsening shortness of breath for approximately 4 to 5 days. She did see her pasting machine operator who did a chest x-ray and thought she had pneumonia, prescribed her an antibiotic and a steroid taper, but despite these treatments, it was progressively worse and she came to the emergency department. The patient is on 2 L of oxygen chronically and was not needing additional oxygen. The patient was, however, markedly dyspneic on exertion and had a very abnormal lung exam with loud wheezes, rhonchi, and tachypnea. The patient was admitted to the hospital and started on IV antibiotics for possible pneumonia as well as scheduled nebulizers, IV steroids, and inhaler therapy for COPD exacerbation. The patient had slow but progressive improvement over her hospitalization with steroids. The patient's steroids were tapered from IV Solu-Medrol to p.o. prednisone on 01/14/19. The patient had a slightly elevated troponin upon admission at 0.04, which generally happens when the patient has COPD exacerbation and likely represents demand ischemia. The patient had no elevation in her CRP; however, the patient was treated for community-acquired pneumonia based on her diagnosis via her pasting machine operator per the patient. The patient's functional status and tachypnea improved slowly. The patient on the day of her discharge was able to ambulate approximately 120 feet, take rest and then walk the same 120 feet back, which actually per the patient represents an improvement in her functional status, though she was very dyspneic with this as well. The patient stated that she was anxious to go home and also wanted to transfer her care to her local pasting machine operator Dr. Black, as well as reestablish with a sales support representative. The patient was stable and amenable for discharge on . PHYSICAL EXAM ON THE DAY OF DISCHARGE: General: The patient is an 78-year-old female who appears stated age and sitting comfortably in bed, in no acute distress. Vital Signs: At the time of evaluation, temperature 97.4, pulse rate 73, respiratory rate 20, oxygen saturation 99% on 2 L, blood pressure 129/58. HEENT: Head: Normocephalic, atraumatic. Sclerae anicteric. No conjunctival injection. Nasal mucosa moist. Oral mucosa moist. No pharyngeal erythema, discharge, or exudate. Neck: Supple, nontender. No lymphadenopathy. No carotid bruits auscultated. No JVD. Cardiac: Regular rate and rhythm. No clicks, murmurs, gallops, or rubs. Pulses are 2+ in the bilateral dorsalis pedis, posterior tibialis, and radial areas. Respiratory: Slight expiratory wheezes throughout all lung urbano. Good air exchange. Markedly improved exam from previous days. Abdomen: Soft, nontender, nondistended. Bowel sounds present and normoactive in all 4 quadrants. No hepatosplenomegaly. No abdominal bruits auscultated. No hepatojugular reflux. Genitourinary: No suprapubic or CVA tenderness. Skin: Clean, dry, and intact. No rash. Neuro: Cranial nerves II through XII intact. No focal deficits. Alert and oriented x3. Psychiatric: Pleasant and cooperative. DISCHARGE PLAN: The patient will be discharged to home. The patient lives with her daughter and has routine care. The patient is able to take her nebulizers as needed. The patient was encouraged to avoid overtly strenuous activity while her respiratory status continues to improve. The patient will be on a slow prednisone taper given persistence of her symptoms at 50 mg for 3 days, then 40 mg for 3 days and so on, down to her baseline dose of 10. The patient should obtain a referral through her primary care doctor for a local pasting machine operator to have better availability of pulmonology care given her rather poor functional status and need for frequent evaluations. The patient has been started on Spiriva, which she tolerated in association with her DuoNeb while in the hospital without anticholinergic side effects. The patient was started by her pasting machine operator on low- dose azithromycin for prophylaxis of COPD exacerbation. This will be continued after the patient finishes her acute treatment for community-acquired pneumonia and other advanced treatments to prevent COPD exacerbation such as Rofumilast should be considered. The patient should have a heart-healthy diet, caffeine okay. The patient to follow up with her sales support representative for continued management of her Churg- Dave disease, though this does appear to be a current issue for her. The patient should engage in activity as tolerated. The patient should return to the hospital for passing out, chest pain, uncontrollable shortness of breath, or other alarming symptoms. TIME SPENT: Approximately 60 minutes was spent on the discharge of this patient , 30 of which was spent [id number] with the patient obtaining history and physical and discussing treatment plan. NELSON BUNDY [id number]/[facility] #: [id number] MAX
== END 2019-01-16 11:15 | disposition home or self-care (01) | DRG 190 ==
LOC: ED 13:07 → MED 17:09 → OBSVTOIN 01-13 14:00
PROVIDERS: ADMIT Internal Medicine; ATTEND Internal Medicine
DX: J44.1 Chronic obstructive pulmonary disease with (acute) exacerbation (principal); J18.9 Pneumonia, unspecified organism; J96.21 Acute and chronic respiratory failure with hypoxia; M30.1 Polyarteritis with lung involvement [Churg-Strauss]; I24.8 Other forms of acute ischemic heart disease; J44.0 Chronic obstructive pulmonary disease with (acute) lower respiratory infection; Z66 Do not resuscitate; K44.9 Diaphragmatic hernia without obstruction or gangrene; K21.9 Gastro-esophageal reflux disease without esophagitis; I10 Essential (primary) hypertension; M81.0 Age-related osteoporosis without current pathological fracture; G62.9 Polyneuropathy, unspecified; Z79.51 Long term (current) use of inhaled steroids; Z88.8 Allergy status to other drugs, medicaments and biological substances; Z87.01 Personal history of pneumonia (recurrent); Z98.49 Cataract extraction status, unspecified eye; Z98.51 Tubal ligation status; Z90.49 Acquired absence of other specified parts of digestive tract; Z82.3 Family history of stroke; Z72.89 Other problems related to lifestyle; Z85.828 Personal history of other malignant neoplasm of skin; Z77.22 Contact with and (suspected) exposure to environmental tobacco smoke (acute) (chronic)
CPT/HCPCS: 36415; 71045; 80048; 80053; 83605; 83735; 83880; 84484; 85025; 85379; 85610; 86140; 87070; 87205; 93005; 94640; 99283; A9270-GY; G0378; J0456; J0696; J1644; J2920; J2930; J7512